=== PATIENT | male | born 1955 | race American Indian/Alaskan Native ===

== ENCOUNTER 2016-12-05 18:10 | Emergency (ER) | payer MEDICARE, OTHER ==
[2016-12-05] MEDS ORDERED: PROVENTIL IH ONE (18:20)
[2016-12-05 19:08] LABS: Hematocrit 44.6 % (35.5-45.6); Hemoglobin 14.7 gm/dl (11.8-15.2); Mean Corpuscular HGB Conc 33 % (32-34); Mean Corpuscular Hemoglobin 31 pg (28-32); Mean Corpuscular Volume 93 fl (84-94); Platelet Count 238 K/mm3 (140-440); Red Blood Count 4.77 M/mm3 (3.65-5.03); Red Cell Distribution Width 14.6 % (13.2-15.2); White Blood Count 5.8 K/mm3 (4.5-11.0)
--- NOTE | 2016-12-05 19:18 | Emergency Department Report ---
ED Shortness of Breath HPI - General Chief Complaint: Dyspnea/Respdistress Stated Complaint: RESP DISTRESS Time Seen by Provider: 12/05/16 18:18 Source: patient, EMS Mode of arrival: Stretcher Limitations: No Limitations - History of Present Illness Initial Comments: 61-year-old male presents to the emergency department via EMS in respiratory distress. Patient states he began having difficulty breathing earlier today. He denies chest pain, cough, or fever. EMS states that the patient was administered 5 mg of albuterol, 125 mg of Solu-Medrol, 2 g of magnesium, and 0.6 mg of epinephrine. Patient was also placed on CPAP. There are no other complaints. MD Complaint: shortness of breath -: Gradual, This morning Pain Scale: 0 Consistency: constant Improves With: nothing Worsens With: nothing Known History Of: asthma Associated Symptoms: denies other symptoms Treatments Prior to Arrival: oxygen, bronchodilator, NIPPV - Related Data Home Oxygen Therapy: No Previous Rx's Medication Instructions Recorded Last Taken Type predniSONE [Deltasone] 3 tab PO QDAY #15 tablet 12/05/16 Unknown Rx Allergies Allergy/AdvReac Type Severity Reaction Status Date / Time No Known Allergies Allergy Unverified 12/05/16 18:29 ED Review of Systems ROS: Stated complaint: RESP DISTRESS Other details as noted in HPI Comment: All other systems reviewed and negative Respiratory: shortness of breath ED Past Medical Hx - Past Medical History Previous Medical History?: Yes Hx Psychiatric Treatment: (Bipolar) Hx Asthma: Yes Additional medical history: Pulmonary sacrodosis - Surgical History Past Surgical History?: Yes Additional Surgical History: Left knee repair, tonsilectomy, salivatory stone remove - Family History Family history: no significant - Social History Smoking Status: Never Smoker Substance Use Type: None - Medications Home Medications: Home Medications Medication Instructions Recorded Confirmed Last Taken Type predniSONE [Deltasone] 3 tab PO QDAY #15 tablet 12/05/16 Unknown Rx ED Physical Exam - General Limitations: No Limitations General appearance: alert, in distress (moderate respiratory distress) - Head Head exam: Present: atraumatic, normocephalic - Eye Eye exam: Present: normal appearance, PERRL, EOMI - ENT ENT exam: Present: normal exam, normal orophraynx, mucous membranes moist - Neck Neck exam: Present: normal inspection, full ROM. Absent: tenderness - Respiratory Respiratory exam: Present: respiratory distress (moderate tachypnea), wheezes ( faint expiratory wheezes bilateral posterior diffuse), decreased breath sounds - Cardiovascular Cardiovascular Exam: Present: normal rhythm, tachycardia, normal heart sounds - GI/Abdominal GI/Abdominal exam: Present: soft, normal bowel sounds. Absent: distended, tenderness - Extremities Exam Extremities exam: Present: normal inspection, full ROM. Absent: tenderness - Back Exam Back exam: Present: normal inspection, full ROM. Absent: tenderness - Neurological Exam Neurological exam: Present: alert, oriented X3. Absent: motor sensory deficit - Skin Skin exam: Present: warm, dry, intact ED Course Vital Signs 12/05/16 12/05/16 12/05/16 18:30 18:31 18:35 Temperature 97.5 F L Pulse Rate 102 H 90 Pulse Rate [ 91 H Anterior Bilateral Throughout] Respiratory 26 H 16 Rate Respiratory 22 Rate [Anterior Bilateral Throughout] Blood Pressure 141/92 146/91 Blood Pressure [Right] O2 Sat by Pulse 96 100 Oximetry 12/05/16 12/05/16 12/05/16 18:37 19:00 19:02 Temperature Pulse Rate 92 H Pulse Rate [ 85 Anterior Bilateral Throughout] Respiratory 18 18 Rate Respiratory 17 Rate [Anterior Bilateral Throughout] Blood Pressure Blood Pressure 135/84 [Right] O2 Sat by Pulse 98 98 Oximetry ED Medical Decision Making - Lab Data Result diagrams: 12/05/16 18:49 12/05/16 18:49 - EKG Data -: EKG Interpreted by Me EKG shows normal: sinus rhythm, axis, intervals, QRS complexes, ST-T waves Rate: normal - EKG Data When compared to previous EKG there are: previous EKG unavailable Interpretation: normal EKG - Radiology Data Radiology results: image reviewed interpreted by me: Chest x-ray shows no acute cardiopulmonary abnormality. - Medical Decision Making Lab and imaging results reviewed and discussed with the patient. On arrival, the patient was placed on BiPAP and administered 10 mg of albuterol. Patient was then able to be weaned to nasal cannula and stated that he was feeling much better. Patient has been taken off of supplemental oxygen and is maintaining oxygen saturations greater than 95%. Patient will be discharged home at this time to follow up with his doctors at the [place]. - Differential Diagnosis asthma exacerbation, pneumonia, pulmonary edema Critical care attestation.: If time is entered above; I have spent that time in minutes in the direct care of this critically ill patient, excluding procedure time. ED Disposition Clinical Impression: Asthma exacerbation Disposition: DISCHARGED TO HOME OR SELFCARE Is pt being admited?: No Condition: Stable Instructions: Asthma (ED) Prescriptions: predniSONE [Deltasone] 3 tab PO QDAY #15 tablet Referrals: PRIMARY CARE, [Primary Care Provider] - 3-5 Days Time of Disposition: 20:02
[2016-12-05 19:35] LABS: Anion Gap 18 mmol/L; Blood Urea Nitrogen 14 mg/dL (9-20); Calcium 8.7 mg/dL (8.4-10.2); Carbon Dioxide 22 mmol/L (22-30); Chloride 103.5 mmol/L (98-107); Glucose 151 mg/dL (75-100); Magnesium 2.5 mg/dL (1.7-2.3); Sodium 139 mmol/L (137-145)
[2016-12-05 20:19] VITALS: BP 118/85
[2016-12-05 21:22] LABS: Basophils % (Manual) 0 % (0.0-1.8); Blastocytes % (Manual) 0 %
[2016-12-05 21:23] LABS: Diff Status Complete; Platelet Estimate Consistent w Auto; RBC Morphology Normal
--- NOTE | 2016-12-06 11:20 | XRay Report ---
SINGLE VIEW CHEST: HISTORY: Dyspnea. FINDINGS: Normal cardiomediastinal silhouette. Trachea is midline. No consolidation, pneumothorax or pleural effusion. IMPRESSION: No acute cardiopulmonary findings.
== END 2016-12-05 20:22 | disposition home or self-care (01) ==
LOC: ED 18:10
DX: J45.901 Unspecified asthma with (acute) exacerbation (principal); F31.9 Bipolar disorder, unspecified; D86.0 Sarcoidosis of lung
CPT/HCPCS: 36415; 71010; 80048; 83735; 85007; 85025; 93005; 93010; 94640

== ENCOUNTER 2016-12-23 22:02 | Emergency (ER) | payer MEDICARE, OTHER ==
[2016-12-23] MEDS ORDERED: PROVENTIL IH ONE ×2 (22:08→22:17)
[2016-12-23 22:09] VITALS: BP 144/91
[2016-12-23 22:54] LABS: Basophils % (Auto) 0.8 % (0.0-1.8); Eosinophils % (Auto) 7.7 % (0.0-4.3); Hematocrit 44.1 % (35.5-45.6); Hemoglobin 14.8 gm/dl (11.8-15.2); Mean Corpuscular HGB Conc 34 % (32-34); Mean Corpuscular Hemoglobin 31 pg (28-32); Mean Corpuscular Volume 93 fl (84-94); Platelet Count 201 K/mm3 (140-440); Red Blood Count 4.73 M/mm3 (3.65-5.03); Red Cell Distribution Width 14.6 % (13.2-15.2); White Blood Count 6.8 K/mm3 (4.5-11.0)
[2016-12-23 23:17] LABS: Anion Gap 20 mmol/L; BUN/Creatinine Ratio 13.75; Blood Urea Nitrogen 11 mg/dL (9-20); Calcium 9.3 mg/dL (8.4-10.2); Carbon Dioxide 24 mmol/L (22-30); Chloride 103.2 mmol/L (98-107); Glucose 109 mg/dL (75-100); Sodium 143 mmol/L (137-145)
--- NOTE | 2016-12-24 08:23 | XRay Report ---
Chest 2 views. Findings: The heart and pulmonary vessels are normal. The lungs are clear. There is no pleural fluid. Impression: No acute findings.
--- NOTE | 2016-12-25 01:49 | ED Elopement Review ---
ED Pt Elopement review - Results review Lab results: Laboratory Tests 12/23/16 12/23/16 22:38 22:38 WBC 6.8 RBC 4.73 Hgb 14.8 Hct 44.1 MCV 93 MCH 31 MCHC 34 RDW 14.6 Plt Count 201 Lymph % (Auto) 33.9 [place] % (Auto) 13.9 H Eos % (Auto) 7.7 H Baso % (Auto) 0.8 Lymph # 2.3 [place] # 0.9 H Eos # 0.5 H Baso # 0.1 Seg Neutrophils % 43.7 Seg Neutrophils # 3.0 Sodium 143 Potassium 4.0 Chloride 103.2 Carbon Dioxide 24 Anion Gap 20 BUN 11 Creatinine 0.8 Estimated GFR > 60 BUN/Creatinine Ratio 13.75 Glucose 109 H Calcium 9.3 Troponin T < 0.010 - Call Back decision Pt Call Back Decision: Pt to F/U with PMD (elevated hr, follow up, if sx continue may return)
== END 2016-12-24 01:30 | disposition left against medical advice (07) ==
LOC: ED 22:02
DX: R06.00 Dyspnea, unspecified (principal); Z53.21 Procedure and treatment not carried out due to patient leaving prior to being seen by health care provider
CPT/HCPCS: 36415; 71020; 80048; 84484; 85025; 93005; 93010; 94640; 96372; J2930

== ENCOUNTER 2017-11-19 15:55 | Emergency (ER) | payer OTHER ==
[2017-11-19] MEDS ORDERED: ATROVENT IH ONE ×3 (16:01→18:02)
[2017-11-19] MEDS ORDERED: PROVENTIL IH ONE ×3 (16:02→18:02)
[2017-11-19 16:33] LABS: Hematocrit 47.1 % (35.5-45.6); Hemoglobin 15.6 gm/dl (11.8-15.2); Mean Corpuscular HGB Conc 33 % (32-34); Mean Corpuscular Hemoglobin 31 pg (28-32); Mean Corpuscular Volume 94 fl (84-94); Platelet Count 306 K/mm3 (140-440); Red Blood Count 5.03 M/mm3 (3.65-5.03); Red Cell Distribution Width 14.7 % (13.2-15.2)
[2017-11-19 16:52] LABS: BUN/Creatinine Ratio 20; Blood Urea Nitrogen 14 mg/dL (9-20); Calcium 9.8 mg/dL (8.4-10.2); Hemolysis Index 10
[2017-11-19 16:55] LABS: INR 0.85 (0.87-1.13)
[2017-11-19 17:30] LABS: Anisocytosis Few; Basophils % (Manual) 0 % (0.0-1.8); Total Cells Counted 100
--- NOTE | 2017-11-19 17:53 | XRay Report ---
FINAL REPORT EXAM: XR CHEST 1V AP HISTORY: BILL TECHNIQUE: upright single view chest PRIORS: None. FINDINGS: Cardiac and mediastinal contours are unremarkable. No focal pulmonary infiltrate is identified. No pleural fluid collection seen. Pulmonary vasculature is unremarkable. IMPRESSION: Negative single-view chest
--- NOTE | 2017-11-19 18:00 | Emergency Department Report ---
HPI - General Chief Complaint: Dyspnea/Respdistress Time Seen by Provider: 11/19/17 17:43 - HPI HPI: Room 8 The patient is a 62-year-old male presented with a chief complaint of shortness of breath. The patient states he was lying on his bed at rest when he became short of breath. The patient states he walked outside to see if the cool air would help but it did not so he went back inside and called EMS. The fire department arrived and administered a nebulizer and the patient states he felt better however soon as he started walking up stairs again had increased work of breathing and subsequently EMS was called to transport the patient to the ED. EMS administered albuterol, Solu-Medrol and magnesium sulfate. The patient states he feels better/back to his baseline currently. Patient is an occasional cough productive of clear sputum. Patient denies fever, rhinorrhea or chest pain. Patient denies having any sick contacts Location: Lungs Duration: Since noon Quality: Shortness of breath Severity: Moderate Modifying factors: [see above] Context: [see above] Mode of transportation: [not driving] ED Past Medical Hx - Past Medical History Hx Psychiatric Treatment: (Bipolar) Hx Asthma: Yes Additional medical history: Pulmonary sacrodosis - Surgical History Additional Surgical History: Left knee repair, tonsilectomy, Sialolithotomy - Family History Family history: no significant - Social History Smoking Status: Former Smoker (none 2 years) Substance Use Type: None - Medications Home Medications: Home Medications Medication Instructions Recorded Confirmed Last Taken Type Acetaminophen [Acetaminophen TAB] 325 mg PO Q4H PRN #30 tablet 10/16/17 Unknown Rx Budesoni/Formotero 160-4.5(Nf) 2 puff IH BID #1 unit 10/16/17 10/12/17 Unknown Rx [Symbicort 160-4.5 (Nf)] Divalproex ER [Depakote ER] 1,500 mg PO QDAY #30 day 10/16/17 Unknown Rx Famotidine [Pepcid] 20 mg PO BID #30 tablet 10/16/17 Unknown Rx Montelukast [Singulair] 10 mg PO QAM #30 tablet 10/16/17 Unknown Rx Prednisone [predniSONE 10 mg 10 mg PO .TAPER #1 tab.ds.pk 10/16/17 Unknown Rx (6-Day Pack, 21 Tabs)] QUEtiapine [SEROquel] 600 mg PO QHS #30 day 10/16/17 Unknown Rx Tiotropium [Spiriva] 1 puff IH DAILY #30 day 10/16/17 Unknown Rx Zolpidem [Ambien] 5 mg PO QHS PRN #15 tablet 10/16/17 Unknown Rx ALBUTEROL Inhaler [Proair] 2 puff IH QID PRN #1 inhalation 11/19/17 Unknown Rx ALBUTEROL NEB's [Proventil 0.083% 2.5 mg IH TID PRN #30 day 11/19/17 Unknown Rx NEBS] Prednisone [predniSONE 10 mg 10 mg PO .TAPER #1 tab.ds.pk 11/19/17 Unknown Rx (6-Day Pack, 21 Tabs)] ED Review of Systems ROS: Stated complaint: BILL Other details as noted in HPI Constitutional: denies: fever ENT: denies: other (no rhinorrhea) Respiratory: cough, shortness of breath, wheezing Cardiovascular: denies: chest pain Physical Exam - Physical Exam Vital Signs: Vital Signs 11/19/17 11/19/17 11/19/17 16:08 16:16 16:23 Temperature 97.6 F Pulse Rate 96 H 97 H Pulse Rate [ 97 H Anterior Bilateral Throughout] Respiratory 38 H 24 Rate Respiratory 24 Rate [Anterior Bilateral Throughout] Blood Pressure 183/96 183/96 O2 Sat by Pulse 91 97 Oximetry 11/19/17 11/19/17 16:30 16:45 Temperature Pulse Rate 96 H 94 H Pulse Rate [ Anterior Bilateral Throughout] Respiratory 16 15 Rate Respiratory Rate [Anterior Bilateral Throughout] Blood Pressure 150/88 144/114 O2 Sat by Pulse 99 96 Oximetry Physical Exam: GENERAL: The patient is well-developed well-nourished male lying on stretcher with nasal cannula in place not appearing to be in acute distress. [] HEENT: Normocephalic. Atraumatic. Extraocular motions are intact. Patient has moist mucous membranes. NECK: Supple. Trachea midline CHEST/LUNGS: Occasional faint expiratory wheezing. There is no respiratory distress noted. HEART/CARDIOVASCULAR: Regular. There is no tachycardia. There is no gallop rub or murmur. ABDOMEN: Abdomen is soft, nontender. Patient has normal bowel sounds. There is no abdominal distention. SKIN: There is no rash. There is no edema. There is no diaphoresis. NEURO: The patient is awake, alert, and oriented. The patient is cooperative. The patient has normal speech MUSCULOSKELETAL:There is no evidence of acute injury. ED Course Vital Signs 11/19/17 11/19/17 11/19/17 16:08 16:16 16:23 Temperature 97.6 F Pulse Rate 96 H 97 H Pulse Rate [ 97 H Anterior Bilateral Throughout] Respiratory 38 H 24 Rate Respiratory 24 Rate [Anterior Bilateral Throughout] Blood Pressure 183/96 183/96 O2 Sat by Pulse 91 97 Oximetry 11/19/17 11/19/17 16:30 16:45 Temperature Pulse Rate 96 H 94 H Pulse Rate [ Anterior Bilateral Throughout] Respiratory 16 15 Rate Respiratory Rate [Anterior Bilateral Throughout] Blood Pressure 150/88 144/114 O2 Sat by Pulse 99 96 Oximetry - Reevaluation(s) Reevaluation #1: 11/19/17 18:02 Patient satting 95-96% on room air. Sitting comfortably ED Medical Decision Making - Lab Data Result diagrams: 11/19/17 16:18 11/19/17 16:18 Laboratory Tests 11/19/17 11/19/17 11/19/17 16:18 16:18 16:18 WBC 6.8 RBC 5.03 Hgb 15.6 H Hct 47.1 H MCV 94 MCH 31 MCHC 33 RDW 14.7 Plt Count 306 [place] % (Auto) Blue Prints Trimmer Add Manual Diff Complete Total Counted 100 Seg Neutrophils % Blue Prints Trimmer Seg Neuts % (Manual) 36.0 L Band Neutrophils % 0 Lymphocytes % (Manual) 48.0 H Reactive Lymphs % (Man) 0 Monocytes % (Manual) 12.0 H Eosinophils % (Manual) 4.0 Basophils % (Manual) 0 Metamyelocytes % 0 Myelocytes % 0 Promyelocytes % 0 Blast Cells % 0 Nucleated RBC % Not Reportable Seg Neutrophils # Man 2.4 Band Neutrophils # 0.0 Lymphocytes # (Manual) 3.3 Abs React Lymphs (Man) 0.0 Monocytes # (Manual) 0.8 Eosinophils # (Manual) 0.3 Basophils # (Manual) 0.0 Metamyelocytes # 0.0 Myelocytes # 0.0 Promyelocytes # 0.0 Blast Cells # 0.0 WBC Morphology Not Reportable Hypersegmented Neuts Not Reportable Hyposegmented Neuts Not Reportable Hypogranular Neuts Not Reportable Smudge Cells Not Reportable Toxic Granulation Not Reportable Toxic Vacuolation Not Reportable Dohle Bodies Not Reportable Pelger-Huet Anomaly Not Reportable Lucy Rods Not Reportable Platelet Estimate Appears normal Clumped Platelets Not Reportable Plt Clumps, EDTA Not Reportable Large Platelets Not Reportable Giant Platelets Not Reportable Platelet Satelliting Not Reportable Plt Morphology Comment Not Reportable RBC Morphology Not Reportable Dimorphic RBCs Not Reportable Polychromasia Not Reportable Hypochromasia Not Reportable Poikilocytosis Not Reportable Anisocytosis Few Microcytosis Not Reportable Macrocytosis Not Reportable Spherocytes Not Reportable Pappenheimer Bodies Not Reportable Sickle Cells Not Reportable Target Cells Not Reportable Tear Drop Cells Not Reportable Ovalocytes Not Reportable Helmet Cells Not Reportable [place] Bodies Not Reportable [place] Rings Not Reportable [place] Cells Not Reportable Bite Cells Not Reportable Crenated Cell Not Reportable Elliptocytes Not Reportable Acanthocytes (Spur) Not Reportable Rouleaux Not Reportable Hemoglobin C Crystals Not Reportable Schistocytes Not Reportable Malaria parasites Not Reportable Christopher Bodies Not Reportable Hem Pathologist Commnt No PT INR APTT Sodium 140 Potassium 4.3 Chloride 100.0 Carbon Dioxide 24 Anion Gap 20 BUN 14 Creatinine 0.7 L Estimated GFR > 60 BUN/Creatinine Ratio 20 Glucose 106 H Calcium 9.8 Troponin T < 0.010 11/19/17 16:23 WBC RBC Hgb Hct MCV MCH MCHC RDW Plt Count [place] % (Auto) Add Manual Diff Total Counted Seg Neutrophils % Seg Neuts % (Manual) Band Neutrophils % Lymphocytes % (Manual) Reactive Lymphs % (Man) Monocytes % (Manual) Eosinophils % (Manual) Basophils % (Manual) Metamyelocytes % Myelocytes % Promyelocytes % Blast Cells % Nucleated RBC % Seg Neutrophils # Man Band Neutrophils # Lymphocytes # (Manual) Abs React Lymphs (Man) Monocytes # (Manual) Eosinophils # (Manual) Basophils # (Manual) Metamyelocytes # Myelocytes # Promyelocytes # Blast Cells # WBC Morphology Hypersegmented Neuts Hyposegmented Neuts Hypogranular Neuts Smudge Cells Toxic Granulation Toxic Vacuolation Dohle Bodies Pelger-Huet Anomaly Lucy Rods Platelet Estimate Clumped Platelets Plt Clumps, EDTA Large Platelets Giant Platelets Platelet Satelliting Plt Morphology Comment RBC Morphology Dimorphic RBCs Polychromasia Hypochromasia Poikilocytosis Anisocytosis Microcytosis Macrocytosis Spherocytes Pappenheimer Bodies Sickle Cells Target Cells Tear Drop Cells Ovalocytes Helmet Cells Holt-[place] Bodies [place] Rings [place] Cells Bite Cells Crenated Cell Elliptocytes Acanthocytes (Spur) Rouleaux Hemoglobin C Crystals Schistocytes Malaria parasites Christopher Bodies Hem Pathologist Commnt PT 12.0 L INR 0.85 L APTT 30.0 Sodium Potassium Chloride Carbon Dioxide Anion Gap BUN Creatinine Estimated GFR BUN/Creatinine Ratio Glucose Calcium Troponin T - EKG Data -: EKG Interpreted by Me EKG shows normal: sinus rhythm Rate: normal - EKG Data When compared to previous EKG there are: previous EKG unavailable - Radiology Data Radiology results: image reviewed (chest x-ray) interpreted by me: Chest x-ray-no focal infiltrates, no pneumothorax - Differential Diagnosis acute asthma exacerbation, sarcoidosis Critical care attestation.: If time is entered above; I have spent that time in minutes in the direct care of this critically ill patient, excluding procedure time. ED Disposition Clinical Impression: Shortness of breath, Acute asthma exacerbation, Sarcoidosis Disposition: DC- TO HOME OR SELFCARE Is pt being admited?: No Does the pt Need Aspirin: No Condition: Stable Instructions: Asthma (ED) Additional Instructions: Return to the emergency department immediately should you develop worsening symptoms, fever, inability to tolerate food or liquid or any other concerns. Prescriptions: ALBUTEROL Inhaler [Proair] 2 puff IH QID PRN #1 inhalation PRN Reason: Shortness Of Breath ALBUTEROL NEB's [Proventil 0.083% NEBS] 2.5 mg IH TID PRN #30 day PRN Reason: Wheezing Prednisone [predniSONE 10 mg (6-Day Pack, 21 Tabs)] 10 mg PO .TAPER #1 tab.ds.pk Referrals: [facility] [Outside] - 3-5 Days Time of Disposition: 18:05
[2017-11-19 18:46] VITALS: BP 134/86
== END 2017-11-19 18:44 | disposition home or self-care (01) ==
LOC: ED 15:55
DX: J45.901 Unspecified asthma with (acute) exacerbation (principal); D86.9 Sarcoidosis, unspecified; F31.9 Bipolar disorder, unspecified; Z87.891 Personal history of nicotine dependence
CPT/HCPCS: 36415; 71045; 80048; 84484; 85007; 85025; 85610; 85730; 93005; 93010; 94640

== ENCOUNTER 2017-12-22 16:07 | Emergency (ER) | payer OTHER ==
[2017-12-22] MEDS ORDERED: PROVENTIL IH ONE (17:12)
[2017-12-22] MEDS ORDERED: ATROVENT IH ONE (17:12)
--- NOTE | 2017-12-22 17:15 | Emergency Department Report ---
ED Shortness of Breath HPI - General Chief Complaint: Dyspnea/Respdistress Stated Complaint: DIFFICULTY BREATHING Time Seen by Provider: 12/22/17 17:08 Source: patient, EMS Mode of arrival: Stretcher Limitations: No Limitations - History of Present Illness Initial Comments: Patient is a 62-year-old male who has a history of asthma and pulmonary sarcoidosis who is coming in with 2 days of shortness of breath. Patient states she's been using his nebulizer machine as prescribed but states that he hasn't been getting any improvement. Patient states that he's had a cough is nonproductive. Patient states that her shortness of breath became so severe today that he called 911. Patient denies any fever nausea vomiting diarrhea headaches sore throat chest pain at this time. - Related Data Previous Rx's Medication Instructions Recorded Last Taken Type Acetaminophen [Acetaminophen TAB] 650 mg PO Q4H PRN #30 tablet 12/09/17 Unknown Rx Azithromycin [Zithromax TAB] 500 mg PO QDAY #5 day 12/09/17 Unknown Rx Budesoni/Formotero 160-4.5(Nf) 2 puff IH BID #1 unit 12/09/17 Unknown Rx [Symbicort 160-4.5 (Nf)] Divalproex ER [Depakote ER] 1,500 mg PO QDAY #30 day 12/09/17 Unknown Rx Famotidine [Pepcid] 20 mg PO BID #30 tablet 12/09/17 Unknown Rx Ipratropium/Albuterol Sulfate 1 ampul IH BID #30 ampul.neb 12/09/17 Unknown Rx [DUONEB *Not for PRN Use*] Montelukast [Singulair] 10 mg PO QAM #30 tablet 12/09/17 Unknown Rx Prednisone [predniSONE 10 mg 10 mg PO .TAPER #1 tab.ds.pk 12/09/17 Unknown Rx (6-Day Pack, 21 Tabs)] QUEtiapine [SEROquel] 600 mg PO QHS #30 day 12/09/17 Unknown Rx ALBUTEROL NEB's [Proventil 0.083% 5 mg IH Q4HRT PRN #30 nebu 12/22/17 Unknown Rx NEBS] Benzonatate [Tessalon Perle] 100 mg PO BID #12 capsule 12/22/17 Unknown Rx Doxycycline [Vibramycin CAP] 100 mg PO Q12HR #14 capsule 12/22/17 Unknown Rx predniSONE [Deltasone] 20 mg PO QDAY #5 tab 12/22/17 Unknown Rx Allergies Allergy/AdvReac Type Severity Reaction Status Date / Time No Known Allergies Allergy Verified 12/22/17 16:53 ED Review of Systems ROS: Stated complaint: DIFFICULTY BREATHING Other details as noted in HPI Comment: All other systems reviewed and negative ED Past Medical Hx - Past Medical History Hx Psychiatric Treatment: Yes (Bipolar) Hx Asthma: Yes Additional medical history: Pulmonary sacrodosis - Surgical History Additional Surgical History: Left knee repair, tonsilectomy, Sialolithotomy - Social History Smoking Status: Former Smoker Substance Use Type: None - Medications Home Medications: Home Medications Medication Instructions Recorded Confirmed Last Taken Type Acetaminophen [Acetaminophen TAB] 650 mg PO Q4H PRN #30 tablet 12/09/17 Unknown Rx Azithromycin [Zithromax TAB] 500 mg PO QDAY #5 day 12/09/17 Unknown Rx Budesoni/Formotero 160-4.5(Nf) 2 puff IH BID #1 unit 12/09/17 Unknown Rx [Symbicort 160-4.5 (Nf)] Divalproex ER [Depakote ER] 1,500 mg PO QDAY #30 day 12/09/17 Unknown Rx Famotidine [Pepcid] 20 mg PO BID #30 tablet 12/09/17 Unknown Rx Ipratropium/Albuterol Sulfate 1 ampul IH BID #30 ampul.neb 12/09/17 Unknown Rx [DUONEB *Not for PRN Use*] Montelukast [Singulair] 10 mg PO QAM #30 tablet 12/09/17 Unknown Rx Prednisone [predniSONE 10 mg 10 mg PO .TAPER #1 tab.ds.pk 12/09/17 Unknown Rx (6-Day Pack, 21 Tabs)] QUEtiapine [SEROquel] 600 mg PO QHS #30 day 12/09/17 Unknown Rx ALBUTEROL NEB's [Proventil 0.083% 5 mg IH Q4HRT PRN #30 nebu 12/22/17 Unknown Rx NEBS] Benzonatate [Tessalon Perle] 100 mg PO BID #12 capsule 12/22/17 Unknown Rx Doxycycline [Vibramycin CAP] 100 mg PO Q12HR #14 capsule 12/22/17 Unknown Rx predniSONE [Deltasone] 20 mg PO QDAY #5 tab 12/22/17 Unknown Rx ED Physical Exam - General Limitations: No Limitations General appearance: alert, in no apparent distress - Head Head exam: Present: atraumatic, normocephalic - Eye Eye exam: Present: normal appearance - ENT ENT exam: Present: mucous membranes moist - Neck Neck exam: Present: normal inspection - Respiratory Respiratory exam: Present: wheezes. Absent: normal lung sounds bilaterally, respiratory distress, rales, rhonchi - Cardiovascular Cardiovascular Exam: Present: normal rhythm, tachycardia. Absent: bradycardia, systolic murmur, diastolic murmur, rubs, gallop - GI/Abdominal GI/Abdominal exam: Present: soft, normal bowel sounds. Absent: distended, tenderness, guarding, rebound - Rectal Rectal exam: Present: deferred - Extremities Exam Extremities exam: Present: normal inspection - Back Exam Back exam: Present: normal inspection - Neurological Exam Neurological exam: Present: alert, oriented X3 - Psychiatric Psychiatric exam: Present: normal affect, normal mood - Skin Skin exam: Present: warm, dry, intact, normal color. Absent: rash ED Course Vital Signs 12/22/17 12/22/17 12/22/17 16:43 16:44 16:47 Temperature Pulse Rate 105 H 104 H 105 H Respiratory 13 14 18 Rate Blood Pressure 150/92 136/98 O2 Sat by Pulse 98 97 99 Oximetry 12/22/17 12/22/17 12/22/17 16:49 16:51 16:53 Temperature 97.5 F L Pulse Rate 105 H 103 H 103 H Respiratory 14 18 16 Rate Blood Pressure 136/98 136/98 136/98 O2 Sat by Pulse 98 98 99 Oximetry 12/22/17 12/22/17 16:59 17:03 Temperature 97.5 F L Pulse Rate Respiratory 24 Rate Blood Pressure O2 Sat by Pulse 98 Oximetry ED Medical Decision Making - Lab Data Result diagrams: 12/22/17 17:12 12/22/17 17:12 - Radiology Data Radiology results: image reviewed interpreted by me: Bilateral atelectasis with no obvious infiltrate. - Medical Decision Making Patient received a nebulized treatment in route and received a hour-long neurologic treatment of albuterol and Atrovent here in the emergency department. Patient states he is feeling much better. Patient states he has a wheeze at baseline which never leaves. Patient is not 4% on room air and states he feels as though he can go home. Patient be started on prednisone will continue with his albuterol treatments at home. He'll follow with the [place] [facility]. Critical care attestation.: If time is entered above; I have spent that time in minutes in the direct care of this critically ill patient, excluding procedure time. ED Disposition Clinical Impression: Bronchospasm, Shortness of breath, Sarcoidosis Acute asthma exacerbation Qualifiers: Asthma severity: moderate Asthma persistence: persistent Qualified Code(s): J45.41 - Moderate persistent asthma with (acute) exacerbation Disposition: TO HOME OR SELFCARE Is pt being admited?: No Does the pt Need Aspirin: No Condition: Stable Instructions: Asthma (ED) Prescriptions: ALBUTEROL NEB's [Proventil 0.083% NEBS] 5 mg IH Q4HRT PRN #30 nebu PRN Reason: Shortness Of Breath Benzonatate [Tessalon Perle] 100 mg PO BID #12 capsule Doxycycline [Vibramycin CAP] 100 mg PO Q12HR #14 capsule predniSONE [Deltasone] 20 mg PO QDAY #5 tab Referrals: PRIMARY CARE, [Primary Care Provider] - 3-5 Days
[2017-12-22 17:36] LABS: BUN/Creatinine Ratio 17; Blood Urea Nitrogen 12 mg/dL (9-20); Calcium 9.3 mg/dL (8.4-10.2); Hemolysis Index 44
[2017-12-22 17:55] LABS: Hemoglobin 15.1 gm/dl (11.8-15.2); Mean Corpuscular Hemoglobin 31 pg (28-32); Mean Corpuscular Volume 94 fl (84-94); Red Blood Count 4.88 M/mm3 (3.65-5.03)
[2017-12-22 17:56] LABS: Lymphocytes % (Auto) 22.5 % (13.4-35.0); Mean Corpuscular HGB Conc 33 % (32-34); Monocytes % (Auto) 11.1 % (0.0-7.3); Platelet Count 216 K/mm3 (140-440); Red Cell Distribution Width 14.7 % (13.2-15.2)
[2017-12-22 17:57] LABS: Basophils % (Auto) 0.5 % (0.0-1.8); Eosinophils % (Auto) 12.6 % (0.0-4.3); Lymphocytes # (Auto) 1.4 K/mm3 (1.2-5.4)
[2017-12-22 17:58] LABS: Eosinophils # (Auto) 0.8 K/mm3 (0.0-0.4); Monocytes # (Auto) 0.7 K/mm3 (0.0-0.8)
--- NOTE | 2017-12-22 19:06 | XRay Report ---
FINAL REPORT EXAM: XR CHEST ROUTINE 2V HISTORY: Shortness of breath TECHNIQUE: PA and lateral views of the chest PRIORS: CXR 12/07/2017 FINDINGS: Lines, tubes, and devices: N/A Lungs and pleura: Trachea is normal in position. Lungs are clear of infiltrate, pleural effusion, vascular congestion, or pneumothorax. No change. Cardiomediastinal silhouette: Cardiac and mediastinal silhouettes are unremarkable. Other: Bony structures are intact. IMPRESSION: No acute cardiopulmonary process seen. No change.
[2017-12-22 19:32] VITALS: BP 133/86
== END 2017-12-22 19:34 | disposition home or self-care (01) ==
LOC: ED 16:07
DX: J45.41 Moderate persistent asthma with (acute) exacerbation (principal); D86.89 Sarcoidosis of other sites; F31.9 Bipolar disorder, unspecified; Z90.89 Acquired absence of other organs; Z98.890 Other specified postprocedural states; Z87.891 Personal history of nicotine dependence
CPT/HCPCS: 36415; 71046; 80048; 85025; 94640

== ENCOUNTER 2017-12-31 20:13 | Emergency (ER) | payer MEDICARE, OTHER ==
[2017-12-31] MEDS ORDERED: ATROVENT IH ONE (20:39)
[2017-12-31] MEDS ORDERED: XOPENEX IH ONE (20:40)
--- NOTE | 2017-12-31 20:45 | Emergency Department Report ---
ED Shortness of Breath HPI - General Chief Complaint: Dyspnea/Respdistress Stated Complaint: BILL Time Seen by Provider: 12/31/17 20:34 Source: patient, EMS Mode of arrival: Stretcher Limitations: No Limitations - History of Present Illness Initial Comments: Patient is 62 years old male history of asthma and sarcoidosis. Patient brought to the ER via EMS after started having shortness of breath and wheezing this afternoon does get worse just prior to coming to the ER. Patient received albuterol, Solu-Medrol, 2 g of magnesium sulfate and oxygen by EMS. Patient is still complaining of shortness of breath. Patient denied any fever, nausea or vomiting. No chest pain. MD Complaint: shortness of breath, cough -: Gradual Known History Of: asthma Associated Symptoms: cough - Related Data Previous Rx's Medication Instructions Recorded Last Taken Type Acetaminophen [Acetaminophen TAB] 650 mg PO Q4H PRN #30 tablet 12/09/17 Unknown Rx Azithromycin [Zithromax TAB] 500 mg PO QDAY #5 day 12/09/17 Unknown Rx Budesoni/Formotero 160-4.5(Nf) 2 puff IH BID #1 unit 12/09/17 Unknown Rx [Symbicort 160-4.5 (Nf)] Divalproex ER [Depakote ER] 1,500 mg PO QDAY #30 day 12/09/17 Unknown Rx Famotidine [Pepcid] 20 mg PO BID #30 tablet 12/09/17 Unknown Rx Ipratropium/Albuterol Sulfate 1 ampul IH BID #30 ampul.neb 12/09/17 Unknown Rx [DUONEB *Not for PRN Use*] Montelukast [Singulair] 10 mg PO QAM #30 tablet 12/09/17 Unknown Rx Prednisone [predniSONE 10 mg 10 mg PO .TAPER #1 tab.ds.pk 12/09/17 Unknown Rx (6-Day Pack, 21 Tabs)] QUEtiapine [SEROquel] 600 mg PO QHS #30 day 12/09/17 Unknown Rx ALBUTEROL NEB's [Proventil 0.083% 5 mg IH Q4HRT PRN #30 nebu 12/22/17 Unknown Rx NEBS] Benzonatate [Tessalon Perle] 100 mg PO BID #12 capsule 12/22/17 Unknown Rx Doxycycline [Vibramycin CAP] 100 mg PO Q12HR #14 capsule 12/22/17 Unknown Rx predniSONE [Deltasone] 20 mg PO QDAY #5 tab 12/22/17 Unknown Rx Allergies Allergy/AdvReac Type Severity Reaction Status Date / Time No Known Allergies Allergy Verified 12/22/17 16:53 ED Review of Systems ROS: Stated complaint: BILL Other details as noted in HPI Comment: All other systems reviewed and negative Constitutional: denies: chills, fever Respiratory: cough, shortness of breath, SOB at rest, wheezing Cardiovascular: denies: chest pain, palpitations Gastrointestinal: denies: abdominal pain, nausea, vomiting, diarrhea, constipation, hematemesis, melena, hematochezia Neurological: denies: headache, weakness, numbness, paresthesias, confusion ED Past Medical Hx - Past Medical History Previous Medical History?: Yes Hx Psychiatric Treatment: Yes (Bipolar) Hx Asthma: Yes Additional medical history: Pulmonary sacrodosis - Surgical History Past Surgical History?: Yes Additional Surgical History: Left knee repair, tonsilectomy, Sialolithotomy - Social History Smoking Status: Former Smoker Substance Use Type: None - Medications Home Medications: Home Medications Medication Instructions Recorded Confirmed Last Taken Type Acetaminophen [Acetaminophen TAB] 650 mg PO Q4H PRN #30 tablet 12/09/17 Unknown Rx Azithromycin [Zithromax TAB] 500 mg PO QDAY #5 day 12/09/17 Unknown Rx Budesoni/Formotero 160-4.5(Nf) 2 puff IH BID #1 unit 12/09/17 Unknown Rx [Symbicort 160-4.5 (Nf)] Divalproex ER [Depakote ER] 1,500 mg PO QDAY #30 day 12/09/17 Unknown Rx Famotidine [Pepcid] 20 mg PO BID #30 tablet 12/09/17 Unknown Rx Ipratropium/Albuterol Sulfate 1 ampul IH BID #30 ampul.neb 12/09/17 Unknown Rx [DUONEB *Not for PRN Use*] Montelukast [Singulair] 10 mg PO QAM #30 tablet 12/09/17 Unknown Rx Prednisone [predniSONE 10 mg 10 mg PO .TAPER #1 tab.ds.pk 12/09/17 Unknown Rx (6-Day Pack, 21 Tabs)] QUEtiapine [SEROquel] 600 mg PO QHS #30 day 12/09/17 Unknown Rx ALBUTEROL NEB's [Proventil 0.083% 5 mg IH Q4HRT PRN #30 nebu 12/22/17 Unknown Rx NEBS] Benzonatate [Tessalon Perle] 100 mg PO BID #12 capsule 12/22/17 Unknown Rx Doxycycline [Vibramycin CAP] 100 mg PO Q12HR #14 capsule 12/22/17 Unknown Rx predniSONE [Deltasone] 20 mg PO QDAY #5 tab 12/22/17 Unknown Rx ED Physical Exam - General Limitations: No Limitations General appearance: alert, in distress - Head Head exam: Present: atraumatic, normocephalic, normal inspection - Eye Eye exam: Present: normal appearance - ENT ENT exam: Present: normal exam, normal orophraynx, mucous membranes moist - Neck Neck exam: Present: normal inspection, full ROM. Absent: tenderness, meningismus, lymphadenopathy - Respiratory Respiratory exam: Present: respiratory distress, wheezes, rhonchi, accessory muscle use, decreased breath sounds, prolonged expiratory. Absent: rales, stridor, chest wall tenderness - Cardiovascular Cardiovascular Exam: Present: tachycardia - GI/Abdominal GI/Abdominal exam: Present: soft, normal bowel sounds. Absent: distended, tenderness, guarding, rebound, rigid, organomegaly, mass, bruit, pulsatile mass , hernia - Extremities Exam Extremities exam: Present: normal inspection, full ROM, normal capillary refill - Back Exam Back exam: Present: normal inspection, full ROM. Absent: CVA tenderness (R), CVA tenderness (L) - Neurological Exam Neurological exam: Present: alert, oriented X3, CN II-XII intact, normal gait - Skin Skin exam: Present: warm, intact, normal color. Absent: cyanosis, diaphoretic, erythema, urticaria ED Course Vital Signs 12/31/17 12/31/17 12/31/17 20:29 20:32 21:12 Temperature 98.7 F Pulse Rate 106 H 106 H Pulse Rate [ 101 H Anterior Bilateral Throughout] Respiratory 20 Rate Respiratory 21 Rate [Anterior Bilateral Throughout] Blood Pressure 134/80 O2 Sat by Pulse 94 Oximetry 12/31/17 21:22 Temperature Pulse Rate Pulse Rate [ 104 H Anterior Bilateral Throughout] Respiratory Rate Respiratory 21 Rate [Anterior Bilateral Throughout] Blood Pressure O2 Sat by Pulse Oximetry - Reevaluation(s) Reevaluation #1: 01/01/18 00:25 Patient is stated that he is feeling much better. Good airway movement bilaterally and no wheezing or rales. ED Medical Decision Making - Lab Data Result diagrams: 12/31/17 20:53 12/31/17 20:53 Critical care attestation.: If time is entered above; I have spent that time in minutes in the direct care of this critically ill patient, excluding procedure time. ED Disposition Clinical Impression: Sarcoidosis, Asthma exacerbation Disposition: DC-01 TO HOME OR SELFCARE Is pt being admited?: No Condition: Stable Instructions: Asthma (ED), Sarcoidosis (ED)
[2017-12-31 21:18] LABS: Hematocrit 44.2 % (35.5-45.6); Hemoglobin 14.8 gm/dl (11.8-15.2); Mean Corpuscular HGB Conc 34 % (32-34); Mean Corpuscular Hemoglobin 31 pg (28-32); Mean Corpuscular Volume 91 fl (84-94); Platelet Count 227 K/mm3 (140-440); Red Blood Count 4.84 M/mm3 (3.65-5.03); Red Cell Distribution Width 14.1 % (13.2-15.2)
[2017-12-31 21:33] LABS: Alanine Aminotransferase 19 units/L (7-56); Albumin 3.6 g/dL (3.9-5); BUN/Creatinine Ratio 16; Blood Urea Nitrogen 11 mg/dL (9-20); Hemolysis Index 8
[2017-12-31 22:30] LABS: Myelocytes # (Manual) 0.1 K/mm3; RBC Morphology Normal; Total Cells Counted 100
--- NOTE | 2017-12-31 22:30 | XRay Report ---
FINAL REPORT EXAM: XR CHEST 1V AP HISTORY: Dyspnea TECHNIQUE: Semi erect AP upright exam performed portably Comparison: 12/22/2017, 12/07/2017 FINDINGS: Normal heart size. Lungs are emphysematous. There is mild coarsening of the bronchovascular interstitium. There is scarring in the left midlung laterally. There is mild bronchial thickening unchanged from previous. Hilar contours are stable. IMPRESSION: Emphysema. Coarsened interstitial markings without focal infiltrate. Mild bronchial thickening chronically. Left midlung scarring.
[2018-01-01 01:12] VITALS: BP 131/76
== END 2018-01-01 01:00 | disposition home or self-care (01) ==
LOC: ED 20:13
DX: J45.901 Unspecified asthma with (acute) exacerbation (principal); D86.9 Sarcoidosis, unspecified; F31.9 Bipolar disorder, unspecified; Z87.891 Personal history of nicotine dependence
CPT/HCPCS: 36415; 71045; 80053; 83880; 85007; 85025; 93005; 93010; 94640

== ENCOUNTER 2018-01-04 22:02 | Inpatient (IN) | payer MEDICARE, OTHER ==
[2018-01-04] MEDS ORDERED: XOPENEX IH ONE (22:11)
[2018-01-04] MEDS ORDERED: ATROVENT IH ONE (22:11)
--- NOTE | 2018-01-04 22:19 | Emergency Department Report ---
ED Shortness of Breath HPI - General Chief Complaint: Dyspnea/Respdistress Stated Complaint: BILL Time Seen by Provider: 01/04/18 22:05 Source: EMS, old records reviewed Mode of arrival: Stretcher Limitations: No Limitations - History of Present Illness Initial Comments: 62-year-old male with a past medical history of COPD (not on home oxygen), sarcoidosis, and bipolar disorder presents to the hospital complaining shortness of breath and wheezing since yesterday. Positive cough productive of white thick sputum. No complaints of fever. Patient takes prednisone 10 mg daily. Using multiple nebs since yesterday without improvement. Patient had respiratory distress upon EMS arrival with a room air saturation of 90%. After receiving albuterol 5 mg, Solu-Medrol 125 mg, and magnesium 2 g symptoms improving but wheezing persists. Denies previous history of intubations. Patient does not have a binding end stitcher be scheduled for a first visit with a binding end stitcher early January. No pain reported. - Related Data Previous Rx's Medication Instructions Recorded Last Taken Type Acetaminophen [Acetaminophen TAB] 650 mg PO Q4H PRN #30 tablet 12/09/17 Unknown Rx Azithromycin [Zithromax TAB] 500 mg PO QDAY #5 day 12/09/17 Unknown Rx Budesoni/Formotero 160-4.5(Nf) 2 puff IH BID #1 unit 12/09/17 Unknown Rx [Symbicort 160-4.5 (Nf)] Divalproex ER [Depakote ER] 1,500 mg PO QDAY #30 day 12/09/17 Unknown Rx Famotidine [Pepcid] 20 mg PO BID #30 tablet 12/09/17 Unknown Rx Ipratropium/Albuterol Sulfate 1 ampul IH BID #30 ampul.neb 12/09/17 Unknown Rx [DUONEB *Not for PRN Use*] Montelukast [Singulair] 10 mg PO QAM #30 tablet 12/09/17 Unknown Rx Prednisone [predniSONE 10 mg 10 mg PO .TAPER #1 tab.ds.pk 12/09/17 Unknown Rx (6-Day Pack, 21 Tabs)] QUEtiapine [SEROquel] 600 mg PO QHS #30 day 12/09/17 Unknown Rx ALBUTEROL NEB's [Proventil 0.083% 5 mg IH Q4HRT PRN #30 nebu 03/12/18 Unknown Rx NEBS] Benzonatate [Tessalon Perle] 100 mg PO BID #12 capsule 12/22/17 Unknown Rx Doxycycline [Vibramycin CAP] 100 mg PO Q12HR #14 capsule 12/22/17 Unknown Rx predniSONE [Deltasone] 20 mg PO QDAY #5 tab 12/22/17 Unknown Rx Prednisone [predniSONE 10 mg 10 mg PO .TAPER #1 tab.ds.pk 01/01/18 Unknown Rx (6-Day Pack, 21 Tabs)] Allergies Allergy/AdvReac Type Severity Reaction Status Date / Time No Known Allergies Allergy Verified 12/22/17 16:53 ED Review of Systems ROS: Stated complaint: BILL Other details as noted in HPI Comment: All other systems reviewed and negative ED Past Medical Hx - Past Medical History Hx Psychiatric Treatment: Yes (Bipolar) Hx Asthma: Yes Additional medical history: Pulmonary sacrodosis - Surgical History Additional Surgical History: Left knee repair, tonsilectomy, Sialolithotomy - Social History Smoking Status: Former Smoker Substance Use Type: None - Medications Home Medications: Home Medications Medication Instructions Recorded Confirmed Last Taken Type Acetaminophen [Acetaminophen TAB] 650 mg PO Q4H PRN #30 tablet 12/09/17 Unknown Rx Azithromycin [Zithromax TAB] 500 mg PO QDAY #5 day 12/09/17 Unknown Rx Budesoni/Formotero 160-4.5(Nf) 2 puff IH BID #1 unit 12/09/17 Unknown Rx [Symbicort 160-4.5 (Nf)] Divalproex ER [Depakote ER] 1,500 mg PO QDAY #30 day 12/09/17 Unknown Rx Famotidine [Pepcid] 20 mg PO BID #30 tablet 12/09/17 Unknown Rx Ipratropium/Albuterol Sulfate 1 ampul IH BID #30 ampul.neb 12/09/17 Unknown Rx [DUONEB *Not for PRN Use*] Montelukast [Singulair] 10 mg PO QAM #30 tablet 12/09/17 Unknown Rx Prednisone [predniSONE 10 mg 10 mg PO .TAPER #1 tab.ds.pk 12/09/17 Unknown Rx (6-Day Pack, 21 Tabs)] QUEtiapine [SEROquel] 600 mg PO QHS #30 day 12/09/17 Unknown Rx ALBUTEROL NEB's [Proventil 0.083% 5 mg IH Q4HRT PRN #30 nebu 12/22/17 Unknown Rx NEBS] Benzonatate [Tessalon Perle] 100 mg PO BID #12 capsule 12/22/17 Unknown Rx Doxycycline [Vibramycin CAP] 100 mg PO Q12HR #14 capsule 12/22/17 Unknown Rx predniSONE [Deltasone] 20 mg PO QDAY #5 tab 12/22/17 Unknown Rx Prednisone [predniSONE 10 mg 10 mg PO .TAPER #1 tab.ds.pk 01/01/18 Unknown Rx (6-Day Pack, 21 Tabs)] ED Physical Exam - General Limitations: No Limitations - Other Other exam information: General: No limitations, patient is alert in no acute distress Head exam: Atraumatic, normocephalic Eyes exam: Normal appearance ENT: Moist mucous membrane, normal oropharynx Neck exam: Normal inspection, full range of motion Respiratory exam: Accessory muscle use, able to speak in sentences, expiratory wheezing, tachypnea Cardiovascular: Tachycardia regular rhythm Abdomen: Soft, nondistended, and nontender, with normal bowel sounds, no rebound, or guarding Extremity: Full range of motion normal inspection no deformity, no calf tenderness or edema Back: Normal Inspection, full range of motion, no tenderness Neurologic: Alert, oriented x3, cranial nerves intact, no motor or sensory deficit Psychiatric: normal affect, normal mood Skin: Warm, dry, intact ED Course Vital Signs 01/04/18 01/04/18 01/04/18 22:02 22:04 22:15 Temperature 97.5 F L Pulse Rate 122 H 124 H 122 H Pulse Rate [ Bilateral] Respiratory 19 23 22 Rate Respiratory Rate [Bilateral ] Blood Pressure 109/83 122/94 O2 Sat by Pulse 99 95 94 Oximetry 01/04/18 01/04/18 01/04/18 22:16 22:17 22:21 Temperature Pulse Rate 122 H Pulse Rate [ 123 H Bilateral] Respiratory 21 Rate Respiratory 19 Rate [Bilateral ] Blood Pressure O2 Sat by Pulse 95 Oximetry 01/04/18 01/04/18 22:31 22:45 Temperature Pulse Rate 123 H Pulse Rate [ 119 H Bilateral] Respiratory 15 Rate Respiratory 18 Rate [Bilateral ] Blood Pressure 104/81 O2 Sat by Pulse 96 Oximetry - Reevaluation(s) Reevaluation #1: 01/04/18 23:45 Persistent wheezing but feeling better ED Medical Decision Making - Lab Data Result diagrams: 01/04/18 22:22 01/04/18 22:22 Lab Results 01/04/18 01/04/18 Range/Units 22:22 22:22 WBC 6.8 (4.5-11.0) K/mm3 RBC 5.29 H (3.65-5.03) M/mm3 Hgb 15.9 H (11.8-15.2) gm/dl Hct 49.0 H (35.5-45.6) % MCV 93 (84-94) fl MCH 30 (28-32) pg MCHC 32 (32-34) % RDW 14.5 (13.2-15.2) % Plt Count 263 (140-440) K/mm3 Seg Neutrophils % Modeling Agent Sodium 137 (137-145) mmol/L Potassium 3.9 (3.6-5.0) mmol/L Chloride 98.2 (98-107) mmol/L Carbon Dioxide 24 (22-30) mmol/L Anion Gap 19 mmol/L BUN 14 (9-20) mg/dL Creatinine 0.8 (0.8-1.5) mg/dL Estimated GFR > 60 ml/min BUN/Creatinine Ratio 18 % Glucose 127 H (75-100) mg/dL Calcium 9.4 (8.4-10.2) mg/dL NT-Pro-B Natriuret Pep < 5 (0-900) pg/mL - EKG Data -: EKG Interpreted by [facility] EKG shows normal: sinus rhythm (89), axis (99), QRS complexes (98), ST-T waves ( no stemi/t inv) - Radiology Data Radiology results: report reviewed read by radiologist: cxr portable: Mild linear atelectasis at the right lung base otherwise clear - Medical Decision Making COPD/sarcoidosis Acute exacerbation Persistent wheezing despite home, EMS, and ED treatment Plan to admit to admit for further treatment - Differential Diagnosis COPD, sarcoidosis, pneumonia, asthma, bronchitis, CHF Critical Care Time: No Critical care attestation.: If time is entered above; I have spent that time in minutes in the direct care of this critically ill patient, excluding procedure time. ED Disposition Clinical Impression: Sarcoidosis, Asthma exacerbation in COPD Disposition: DC- OP ADMIT IP TO THIS HOSP Is pt being admited?: Yes Condition: Stable Time of Disposition: 23:40 (Dr Bangura/hosp)
[2018-01-04 22:46] LABS: Hemoglobin 15.9 gm/dl (11.8-15.2); Mean Corpuscular HGB Conc 32 % (32-34); Mean Corpuscular Hemoglobin 30 pg (28-32); Mean Corpuscular Volume 93 fl (84-94); Platelet Count 263 K/mm3 (140-440); Red Blood Count 5.29 M/mm3 (3.65-5.03); Red Cell Distribution Width 14.5 % (13.2-15.2)
[2018-01-04 22:56] LABS: BUN/Creatinine Ratio 18; Blood Urea Nitrogen 14 mg/dL (9-20); Calcium 9.4 mg/dL (8.4-10.2); Hemolysis Index 5
--- NOTE | 2018-01-04 23:31 | XRay Report ---
FINAL REPORT EXAM: XR CHEST 1V AP HISTORY: sob COMPARISON: December 31, 2017. FINDINGS: Frontal view(s) of the chest obtained. Cardiac silhouette within normal limits. Mild linear atelectasis at the right lung base. Otherwise, no gross consolidation or effusion. No pneumothorax. IMPRESSION: Mild linear atelectasis at the right lung base. Otherwise, lungs are clear.
--- NOTE | 2018-01-04 23:41 | History and Physical Report ---
History of Present Illness Date of examination: 01/04/18 History of present illness: 62-year-old man with a history of sarcoidosis, bipolar, asthma comes emergency room with complaints of shortness of breath ongoing over the last 2 days. He was seen here in the emergency room on December 31, discharged on steroids, nebulizer treatments which she is taking, however he states that there is no improvement in his symptoms. He complains of a cough productive of pratt phlegm , no fever or chills Review Of Systems: Constitutional: no weight loss Ears, eyes, nose, mouth and throat: no nasal congestion, no nasal discharge, no sinus pressure, blurry vision, diplopia Neck: No neck pain or rigidity. Cardiovascular: no Chest pain, orthopnea, palpitations Respiratory: + shortness of breath, cough Gastrointestinal: no abdominal pain, hematochezia Genitourinary : no dysuria, frequency , hematuria Musculoskeletal: no muscle ache Integumentary: no rash, no pruritis Neurological: no parathesias, focal weakness Endocrine: no cold or heat intolerance, no polyuria or polydipsia Hematologic/Lymphatic: no easy bruising, no easy bleeding, no gland swelling Allergic/Immunologic: no urticaria, no angioedema. PAST MEDICAL HISTORY: Bipolar, sarcoidosis, asthma PAST SURGICAL HISTORY: Knee surgery, tonsillectomy, salivary gland surgery SOCIAL HISTORY: Denies tobacco, alcohol, drugs FAMILY HISTORY: Hypertension Medications and Allergies Allergies Allergy/AdvReac Type Severity Reaction Status Date / Time No Known Allergies Allergy Verified 12/22/17 16:53 Home Medications Medication Instructions Recorded Confirmed Last Taken Type Budesoni/Formotero 160-4.5(Nf) 2 puff IH BID #1 unit 12/09/17 01/05/18 Unknown Rx [Symbicort 160-4.5 (Nf)] Divalproex ER [Depakote ER] 1,500 mg PO QDAY #30 day 12/09/17 01/05/18 Unknown Rx Famotidine [Pepcid] 20 mg PO BID #30 tablet 12/09/17 01/05/18 Unknown Rx Ipratropium/Albuterol Sulfate 1 ampul IH BID #30 ampul.neb 12/09/17 01/05/18 Unknown Rx [DUONEB *Not for PRN Use*] Montelukast [Singulair] 10 mg PO QAM #30 tablet 12/09/17 01/05/18 Unknown Rx QUEtiapine [SEROquel] 600 mg PO QHS #30 day 12/09/17 01/05/18 Unknown Rx ALBUTEROL NEB's [Proventil 0.083% 5 mg IH Q4HRT PRN #30 nebu 12/22/17 01/05/18 Unknown Rx NEBS] Benzonatate [Tessalon Perle] 100 mg PO BID #12 capsule 12/22/17 01/05/18 Unknown Rx Doxycycline [Vibramycin CAP] 100 mg PO Q12HR #14 capsule 12/22/17 01/05/18 Unknown Rx predniSONE [Deltasone] 20 mg PO QDAY #5 tab 12/22/17 01/05/18 Unknown Rx Exam - Physical Exam Narrative exam: Gen. appearance: Patient lying in bed, no apparent distress HEENT: Normocephalic, atraumatic, pupils equally round and reactive to light, extraocular movement intact, and no sclericterus,. No JVD or thyromegaly or nodule,neck supple, no carotid bruit ,mucous membranes moist, no exudate or erythema Heart: S1, S2, regular rate and rhythm Lungs: Diminished breath sounds, bilateral wheezing , breathing comfortable Abdomen: Positive bowel sounds, nontender, nondistended, no organomegaly Extremity: No edema, cyanosis, clubbing Skin: No rash, nodules, warm, dry Neuro: Oriented 3, cranial nerves II-12 intact, speech is fluent, motor and sensory intact - Constitutional Vitals: Temp Pulse Resp BP Pulse Ox 97.5 F L 119 H 18 104/81 96 01/04/18 22:04 01/04/18 22:45 01/04/18 22:45 01/04/18 22:31 01/04/18 22:31 Results - Labs CBC & Chem 7: 01/04/18 22:22 01/04/18 22:22 Labs: Abnormal lab results 01/04/18 01/04/18 Range/Units 22:22 22:22 RBC 5.29 H (3.65-5.03) M/mm3 Hgb 15.9 H (11.8-15.2) gm/dl Hct 49.0 H (35.5-45.6) % Glucose 127 H (75-100) mg/dL - Imaging and Cardiology EKG: image reviewed Chest x-ray: image reviewed Assessment and Plan Assessment Asthma exacerbation Sarcoidosis Bipolar Plan Admit to medicine Start high-dose IV steroids, nebulizer treatments Continue outpatient medications, start DVT prophylaxis
[2018-01-05 00:09] LABS: Band Neutrophils # (Manual) 0.1 K/mm3; Basophils % (Manual) 0 % (0.0-1.8); Total Cells Counted 100
[2018-01-05 00:10] LABS: RBC Morphology Normal
[2018-01-05] MEDS ORDERED: ZOFRAN IV PRN (00:40)
[2018-01-05] MEDS ORDERED: TYLENOL PO PRN (00:40)
[2018-01-05] MEDS ORDERED: SODIUM CHLORIDE FLUSH SYRINGE 10 ML IV PRN (00:40)
[2018-01-05] MEDS: DUONEB *Not for PRN Use IH SCH ×4 (08:20→20:20)
[2018-01-05] MEDS: LOVENOX SUB-Q SCH (10:31)
[2018-01-05] MEDS: TESSALON PERLES PO SCH ×2 (10:31→22:30)
[2018-01-05] MEDS: PEPCID PO SCH ×2 (10:31→22:30)
[2018-01-05] MEDS: SODIUM CHLORIDE FLUSH SYRINGE 10 ML IV SCH ×2 (10:32→22:31)
--- NOTE | 2018-01-05 14:21 | Progress Note ---
Assessment and Plan Acute hypoxic respiratory failure - due to asthma exacerbation, POA - cont nebs, O2, staroid Acute Asthma exacerbation - Monitor at med-surge unit - cont high-dose IV steroids, frequent nebulizer treatments h/o Sarcoidosis - cont steroid, monitor clinically Bipolar disorder - on seroquel Seizure disorder - cont keppra DVT prophylaxis - on lovnenox Brief history: 62-year-old man with a history of sarcoidosis, bipolar, asthma comes emergency room with complaints of shortness of breath ongoing over the last 2 days. He was seen here in the emergency room on December 31, discharged on steroids, nebulizer treatments which he was taking, however he stated that there was no improvement of his symptoms and came back for further evaluation. Radiological test: CXR - rt lung atelectasis, no infiltrates Hospitalist Physical exam: GENERAL: well-developed and well-nourished WM lying on bed appeared to be in no discomfort. HEENT: Normocephalic. Atraumatic. No conjunctival congestion or icterus. Patient has moist mucous membranes. NECK: Supple. Trachea midline. CHEST/LUNGS: diffuse wheezes auscultated bilaterally, breathing nonlabored. HEART/CARDIOVASCULAR: Regular in rate and rhythm. S1 and S2 positive. ABDOMEN: Abdomen is soft, nontender. Patient has normal bowel sounds. SKIN: There is no rash. Warm and dry. NEURO: No focal motor deficit. Follows command. MUSCULOSKELETAL: No joint effusion or tenderness. EXTRIMITY: No edema, no cyanosis or clubbing. PSYCH: Cooperative. . Subjective Date of service: 01/05/18 Interval history: Pt seen and examined c/o SOB with minimal exertion denies any chest pain Objective - Constitutional Vitals: Vital Signs - 12hr 01/05/18 01/05/18 01/05/18 08:20 08:30 08:33 Temperature 98.0 F Pulse Rate 117 H Pulse Rate [ 108 H 115 H Anterior Bilateral Throughout] Respiratory 22 Rate Respiratory 20 20 Rate [Anterior Bilateral Throughout] Blood Pressure 133/87 O2 Sat by Pulse 95 94 Oximetry - Labs CBC & Chem 7: 01/04/18 22:22 01/04/18 22:22 Labs: Abnormal lab results 01/04/18 01/04/18 Range/Units 22:22 22:22 RBC 5.29 H (3.65-5.03) M/mm3 Hgb 15.9 H (11.8-15.2) gm/dl Hct 49.0 H (35.5-45.6) % Seg Neuts % (Manual) 35.0 L (40.0-70.0) % Monocytes % (Manual) 10.0 H (0.0-7.3) % Eosinophils % (Manual) 16.0 H (0.0-4.3) % Eosinophils # (Manual) 1.1 H (0.0-0.4) K/mm3 Glucose 127 H (75-100) mg/dL
[2018-01-05] MEDS ORDERED: DESYREL PO SCH (22:00)
[2018-01-06] MEDS: DUONEB *Not for PRN Use IH SCH ×3 (01:41→15:24)
[2018-01-06 07:54] LABS: Basophils % (Auto) 0.1 % (0.0-1.8); Hematocrit 43.8 % (35.5-45.6); Hemoglobin 14.4 gm/dl (11.8-15.2); Lymphocytes # (Auto) 1.2 K/mm3 (1.2-5.4); Lymphocytes % (Auto) 6.9 % (13.4-35.0); Mean Corpuscular HGB Conc 33 % (32-34); Mean Corpuscular Hemoglobin 30 pg (28-32); Mean Corpuscular Volume 91 fl (84-94); Monocytes % (Auto) 5.6 % (0.0-7.3); Platelet Count 262 K/mm3 (140-440); Red Cell Distribution Width 14.7 % (13.2-15.2)
[2018-01-06] MEDS ORDERED: PULMICORT IH SCH (08:00)
[2018-01-06] MEDS ORDERED: BROVANA NEBU IH SCH (08:00)
[2018-01-06 08:26] LABS: BUN/Creatinine Ratio 26; Blood Urea Nitrogen 18 mg/dL (9-20); Calcium 9.3 mg/dL (8.4-10.2); Hemolysis Index 5
[2018-01-06] MEDS ORDERED: NON-FORMULARY (Budesoni/Formotero 160-4.5(Nf) 2 PUFF) IH SCH (10:00)
[2018-01-06] MEDS: TESSALON PERLES PO SCH (10:38)
[2018-01-06] MEDS: LOVENOX SUB-Q SCH (10:39)
[2018-01-06] MEDS: PEPCID PO SCH (10:40)
[2018-01-06] MEDS: SODIUM CHLORIDE FLUSH SYRINGE 10 ML IV SCH (10:40)
--- NOTE | 2018-01-06 15:42 | Progress Note ---
Hospitalist Physical - Constitutional Vitals: Temp Pulse Resp BP Pulse Ox 97.8 F 105 H 20 131/88 94 01/06/18 10:48 01/06/18 10:48 01/06/18 10:48 01/06/18 10:48 01/06/18 10:48 Results - Labs CBC & Chem 7: 01/06/18 07:31 01/06/18 07:31 Labs: Laboratory Last Values WBC 17.8 K/mm3 (4.5-11.0) H 01/06/18 07:31 RBC 4.80 M/mm3 (3.65-5.03) 01/06/18 07:31 Hgb 14.4 gm/dl (11.8-15.2) 01/06/18 07:31 Hct 43.8 % (35.5-45.6) 01/06/18 07:31 MCV 91 fl (84-94) 01/06/18 07:31 MCH 30 pg (28-32) 01/06/18 07:31 MCHC 33 % (32-34) 01/06/18 07:31 RDW 14.7 % (13.2-15.2) 01/06/18 07:31 Plt Count 262 K/mm3 (140-440) 01/06/18 07:31 Lymph % (Auto) 6.9 % (13.4-35.0) L 01/06/18 07:31 Desha % (Auto) 5.6 % (0.0-7.3) 01/06/18 07:31 Eos % (Auto) 0.0 % (0.0-4.3) 01/06/18 07:31 Baso % (Auto) 0.1 % (0.0-1.8) 01/06/18 07:31 Lymph # 1.2 K/mm3 (1.2-5.4) 01/06/18 07:31 Desha # 1.0 K/mm3 (0.0-0.8) H 01/06/18 07:31 Eos # 0.0 K/mm3 (0.0-0.4) 01/06/18 07:31 Baso # 0.0 K/mm3 (0.0-0.1) 01/06/18 07:31 Add Manual Diff Complete 01/04/18 22:22 Total Counted 100 01/04/18 22:22 Seg Neutrophils % 87.4 % (40.0-70.0) H 01/06/18 07:31 Seg Neuts % (Manual) 35.0 % (40.0-70.0) L 01/04/18 22:22 Band Neutrophils % 1.0 % 01/04/18 22:22 Lymphocytes % (Manual) 34.0 % (13.4-35.0) 01/04/18 22:22 Reactive Lymphs % (Man) 0 % 01/04/18 22:22 Monocytes % (Manual) 10.0 % (0.0-7.3) H 01/04/18 22:22 Eosinophils % (Manual) 16.0 % (0.0-4.3) H 01/04/18 22:22 Basophils % (Manual) 0 % (0.0-1.8) 01/04/18 22:22 Metamyelocytes % 4.0 % 01/04/18 22:22 Myelocytes % 0 % 01/04/18 22:22 Promyelocytes % 0 % 01/04/18 22:22 Blast Cells % 0 % 01/04/18 22:22 Nucleated RBC % Not Reportable 01/04/18 22:22 Seg Neutrophils # 15.6 K/mm3 (1.8-7.7) H 01/06/18 07:31 Seg Neutrophils # Man 2.4 K/mm3 (1.8-7.7) 01/04/18 22:22 Band Neutrophils # 0.1 K/mm3 01/04/18 22:22 Lymphocytes # (Manual) 2.3 K/mm3 (1.2-5.4) 01/04/18 22:22 Abs React Lymphs (Man) 0.0 K/mm3 01/04/18 22:22 Monocytes # (Manual) 0.7 K/mm3 (0.0-0.8) 01/04/18 22:22 Eosinophils # (Manual) 1.1 K/mm3 (0.0-0.4) H 01/04/18 22:22 Basophils # (Manual) 0.0 K/mm3 (0.0-0.1) 01/04/18 22:22 Metamyelocytes # 0.3 K/mm3 01/04/18 22:22 Myelocytes # 0.0 K/mm3 01/04/18 22:22 Promyelocytes # 0.0 K/mm3 01/04/18 22:22 Blast Cells # 0.0 K/mm3 01/04/18 22:22 WBC Morphology Not Reportable 01/04/18 22:22 Hypersegmented Neuts Not Reportable 01/04/18 22:22 Hyposegmented Neuts Not Reportable 01/04/18 22:22 Hypogranular Neuts Not Reportable 01/04/18 22:22 Smudge Cells Not Reportable 01/04/18 22:22 Toxic Granulation Not Reportable 01/04/18 22:22 Toxic Vacuolation Not Reportable 01/04/18 22:22 Dohle Bodies Not Reportable 01/04/18 22:22 Pelger-Huet Anomaly Not Reportable 01/04/18 22:22 Lucy Rods Not Reportable 01/04/18 22:22 Platelet Estimate Appears normal 01/04/18 22:22 Clumped Platelets Not Reportable 01/04/18 22:22 Plt Clumps, EDTA Not Reportable 01/04/18 22:22 Large Platelets Not Reportable 01/04/18 22:22 Giant Platelets Not Reportable 01/04/18 22:22 Platelet Satelliting Not Reportable 01/04/18 22:22 Plt Morphology Comment Not Reportable 01/04/18 22:22 RBC Morphology Normal 01/04/18 22:22 Dimorphic RBCs Not Reportable 01/04/18 22:22 Polychromasia Not Reportable 01/04/18 22:22 Hypochromasia Not Reportable 01/04/18 22:22 Poikilocytosis Not Reportable 01/04/18 22:22 Anisocytosis Not Reportable 01/04/18 22:22 Microcytosis Not Reportable 01/04/18 22:22 Macrocytosis Not Reportable 01/04/18 22:22 Spherocytes Not Reportable 01/04/18 22:22 Pappenheimer Bodies Not Reportable 01/04/18 22:22 Sickle Cells Not Reportable 01/04/18 22:22 Target Cells Not Reportable 01/04/18 22:22 Tear Drop Cells Not Reportable 01/04/18 22:22 Ovalocytes Not Reportable 01/04/18 22:22 Helmet Cells Not Reportable 01/04/18 22:22 Holt-Tracyton Bodies Not Reportable 01/04/18 22:22 York Rings Not Reportable 01/04/18 22:22 Shannock Cells Not Reportable 01/04/18 22:22 Bite Cells Not Reportable 01/04/18 22:22 Crenated Cell Not Reportable 01/04/18 22:22 Elliptocytes Not Reportable 01/04/18 22:22 Acanthocytes (Spur) Not Reportable 01/04/18 22:22 Rouleaux Not Reportable 01/04/18 22:22 Hemoglobin C Crystals Not Reportable 01/04/18 22:22 Schistocytes Not Reportable 01/04/18 22:22 Malaria parasites Not Reportable 01/04/18 22:22 Christopher Bodies Not Reportable 01/04/18 22:22 Hem Pathologist Commnt No 01/04/18 22:22 Sodium 137 mmol/L (137-145) 01/06/18 07:31 Potassium 4.6 mmol/L (3.6-5.0) 01/06/18 07:31 Chloride 100.0 mmol/L (98-107) 01/06/18 07:31 Carbon Dioxide 23 mmol/L (22-30) 01/06/18 07:31 Anion Gap 19 mmol/L 01/06/18 07:31 BUN 18 mg/dL (9-20) 01/06/18 07:31 Creatinine 0.7 mg/dL (0.8-1.5) L 01/06/18 07:31 Estimated GFR > 60 ml/min 01/06/18 07:31 BUN/Creatinine Ratio 26 % 01/06/18 07:31 Glucose 134 mg/dL (75-100) H 01/06/18 07:31 Calcium 9.3 mg/dL (8.4-10.2) 01/06/18 07:31 NT-Pro-B Natriuret Pep < 5 pg/mL (0-900) 01/04/18 22:22
--- NOTE | 2018-01-06 16:34 | Discharge Summary ---
Providers - Providers Date of Admission: 01/04/18 23:41 Date of discharge: 01/06/18 Attending physician: MELVIN HENRIQUEZ Primary care physician: MARCI MEADOWS Hospitalization Condition: Stable Disposition: DC-01 TO HOME OR SELFCARE Time spent for discharge: 31 min Core Measure Documentation - Palliative Care Palliative Care/ Comfort Measures: Not Applicable - Core Measures Any of the following diagnoses?: none Exam - Constitutional Vitals: Temp Pulse Resp BP Pulse Ox 97.8 F 105 H 20 131/88 94 01/06/18 10:48 01/06/18 10:48 01/06/18 10:48 01/06/18 10:48 01/06/18 10:48 General appearance: Present: no acute distress, well-nourished - EENT Eyes: Present: PERRL, EOM intact - Neck Neck: Present: supple, normal ROM - Respiratory Respiratory effort: normal Respiratory: bilateral: diminished, negative: rales, rhonchi, wheezing - Cardiovascular Rhythm: regular Heart Sounds: Present: S1 & S2 - Extremities Extremities: no ischemia, No edema - Abdominal General gastrointestinal: Present: soft, non-tender, non-distended, normal bowel sounds - Integumentary Integumentary: Present: clear, warm - Musculoskeletal Musculoskeletal: gait normal, strength equal bilaterally - Psychiatric Psychiatric: appropriate mood/affect, cooperative - Neurologic Neurologic: CNII-XII intact, moves all extremities Plan Activity: advance as tolerated Diet: low salt Additional Instructions: f/u PMD at [facility] 3-4 days. f/u Pulmonary at [facility] in 1-2 weeks. home o2 per [facility] Follow up with: MARCI MEADOWS MD [Primary Care Provider] - 3-5 Days
[2018-01-06 16:49] VITALS: BP 137/88
[2018-01-06] MEDS ORDERED: SINGULAIR PO SCH (18:00)
== END 2018-01-06 19:40 | disposition home or self-care (01) | DRG 189 ==
LOC: ED 22:02 → 3A 23:41
PROVIDERS: ADMIT Internal Medicine; ATTEND Internal Medicine
PROC: 5A09357 Assistance with Respiratory Ventilation, Less than 24 Consecutive Hours, Continuous Positive Airway Pressure (ICD-10-PCS; principal; 2018-01-06)
DX: J96.01 Acute respiratory failure with hypoxia (principal); J45.901 Unspecified asthma with (acute) exacerbation; J44.1 Chronic obstructive pulmonary disease with (acute) exacerbation; D86.9 Sarcoidosis, unspecified; G40.909 Epilepsy, unspecified, not intractable, without status epilepticus; F31.9 Bipolar disorder, unspecified; Z82.49 Family history of ischemic heart disease and other diseases of the circulatory system; Z79.899 Other long term (current) drug therapy
CPT/HCPCS: 36415; 71045; 80048; 83880; 85007; 85025; 93005; 93010; 94640; 94660; 94760; J1650; J2920; J2930

== ENCOUNTER 2018-02-06 15:52 | Emergency (ER) | payer OTHER ==
[2018-02-06] MEDS ORDERED: MAGNESIUM SULFATE 1 GM in NACL 0.9% 50 ML IV ONE (18:06)
[2018-02-06] MEDS ORDERED: PROVENTIL IH ONE (18:06)
[2018-02-06] MEDS ORDERED: ATROVENT IH ONE (18:06)
[2018-02-06 18:55] LABS: Basophils % (Auto) 0.4 % (0.0-1.8); Eosinophils # (Auto) 0.1 K/mm3 (0.0-0.4); Hematocrit 41.2 % (35.5-45.6); Hemoglobin 13.6 gm/dl (11.8-15.2); Lymphocytes # (Auto) 0.8 K/mm3 (1.2-5.4); Lymphocytes % (Auto) 13.7 % (13.4-35.0); Mean Corpuscular HGB Conc 33 % (32-34); Mean Corpuscular Hemoglobin 30 pg (28-32); Mean Corpuscular Volume 91 fl (84-94); Monocytes # (Auto) 0.3 K/mm3 (0.0-0.8); Monocytes % (Auto) 4.6 % (0.0-7.3); Platelet Count 270 K/mm3 (140-440); Red Blood Count 4.52 M/mm3 (3.65-5.03); Red Cell Distribution Width 14.2 % (13.2-15.2)
[2018-02-06 19:08] LABS: BUN/Creatinine Ratio 14; Blood Urea Nitrogen 10 mg/dL (9-20); Hemolysis Index 3
--- NOTE | 2018-02-06 20:58 | Emergency Department Report ---
ED Shortness of Breath HPI - General Chief Complaint: Dyspnea/Respdistress Stated Complaint: SHORTNESS OF BREATH Time Seen by Provider: 02/06/18 18:00 Source: patient Mode of arrival: Stretcher Limitations: No Limitations - History of Present Illness Initial Comments: Patient is 62-year-old [place] male who has a past medical history of COPD and sarcoidosis who is presenting with shortness of breath. Patient states that roughly 5 hours ago he started having some increased her breath. Patient taken to his albuterol treatments at home that did not help. Patient states had cough is nonproductive. Patient denies any fevers chills nausea vomiting or diarrhea. Patient states that he has a smothering sensation. - Related Data Previous Rx's Medication Instructions Recorded Last Taken Type Budesoni/Formotero 160-4.5(Nf) 2 puff IH BID #1 unit 12/09/17 Unknown Rx [Symbicort 160-4.5 (Nf)] Divalproex ER [Depakote ER] 1,500 mg PO QDAY #30 day 12/09/17 Unknown Rx Famotidine [Pepcid] 20 mg PO BID #30 tablet 12/09/17 Unknown Rx Ipratropium/Albuterol Sulfate 1 ampul IH BID #30 ampul.neb 12/09/17 Unknown Rx [DUONEB *Not for PRN Use*] Montelukast [Singulair] 10 mg PO QAM #30 tablet 12/09/17 Unknown Rx QUEtiapine [SEROquel] 600 mg PO QHS #30 day 12/09/17 Unknown Rx ALBUTEROL NEB's [Proventil 0.083% 5 mg IH Q4HRT PRN #30 nebu 12/22/17 Unknown Rx NEBS] Benzonatate [Tessalon Perle] 100 mg PO BID #12 capsule 12/22/17 Unknown Rx Doxycycline [Vibramycin CAP] 100 mg PO Q12HR #14 capsule 12/22/17 Unknown Rx predniSONE [Deltasone] 20 mg PO QDAY #5 tab 12/22/17 Unknown Rx Doxycycline [Vibramycin CAP] 100 mg PO Q12HR #14 capsule 02/06/18 Unknown Rx Prednisone [predniSONE 10 mg 10 mg PO .TAPER #1 tab.ds.pk 02/06/18 Unknown Rx (6-Day Pack, 21 Tabs)] Allergies Allergy/AdvReac Type Severity Reaction Status Date / Time No Known Allergies Allergy Verified 12/22/17 16:53 ED Review of Systems ROS: Stated complaint: SHORTNESS OF BREATH Other details as noted in HPI Comment: All other systems reviewed and negative ED Past Medical Hx - Past Medical History Hx Psychiatric Treatment: Yes (Bipolar) Hx Asthma: Yes Hx COPD: Yes Additional medical history: Pulmonary sacrodosis - Surgical History Additional Surgical History: Left knee repair, tonsilectomy, Sialolithotomy - Social History Smoking Status: Former Smoker Substance Use Type: None - Medications Home Medications: Home Medications Medication Instructions Recorded Confirmed Last Taken Type Budesoni/Formotero 160-4.5(Nf) 2 puff IH BID #1 unit 12/09/17 01/05/18 Unknown Rx [Symbicort 160-4.5 (Nf)] Divalproex ER [Depakote ER] 1,500 mg PO QDAY #30 day 12/09/17 01/05/18 Unknown Rx Famotidine [Pepcid] 20 mg PO BID #30 tablet 12/09/17 01/05/18 Unknown Rx Ipratropium/Albuterol Sulfate 1 ampul IH BID #30 ampul.neb 12/09/17 01/05/18 Unknown Rx [DUONEB *Not for PRN Use*] Montelukast [Singulair] 10 mg PO QAM #30 tablet 12/09/17 01/05/18 Unknown Rx QUEtiapine [SEROquel] 600 mg PO QHS #30 day 12/09/17 01/05/18 Unknown Rx ALBUTEROL NEB's [Proventil 0.083% 5 mg IH Q4HRT PRN #30 nebu 12/22/17 01/05/18 Unknown Rx NEBS] Benzonatate [Tessalon Perle] 100 mg PO BID #12 capsule 12/22/17 01/05/18 Unknown Rx Doxycycline [Vibramycin CAP] 100 mg PO Q12HR #14 capsule 12/22/17 01/05/18 Unknown Rx predniSONE [Deltasone] 20 mg PO QDAY #5 tab 12/22/17 01/05/18 Unknown Rx Doxycycline [Vibramycin CAP] 100 mg PO Q12HR #14 capsule 02/06/18 Unknown Rx Prednisone [predniSONE 10 mg 10 mg PO .TAPER #1 tab.ds.pk 02/06/18 Unknown Rx (6-Day Pack, 21 Tabs)] ED Physical Exam - General Limitations: No Limitations General appearance: alert, in no apparent distress - Head Head exam: Present: atraumatic, normocephalic - Eye Eye exam: Present: normal appearance - ENT ENT exam: Present: mucous membranes moist - Neck Neck exam: Present: normal inspection - Respiratory Respiratory exam: Present: wheezes, accessory muscle use, prolonged expiratory. Absent: normal lung sounds bilaterally, respiratory distress, rales, rhonchi, stridor - Cardiovascular Cardiovascular Exam: Present: normal rhythm, tachycardia. Absent: systolic murmur, diastolic murmur, rubs, gallop - GI/Abdominal GI/Abdominal exam: Present: soft, normal bowel sounds. Absent: distended, tenderness, guarding - Rectal Rectal exam: Present: deferred - Extremities Exam Extremities exam: Present: normal inspection - Back Exam Back exam: Present: normal inspection - Neurological Exam Neurological exam: Present: alert, oriented X3 - Psychiatric Psychiatric exam: Present: normal affect, normal mood - Skin Skin exam: Present: warm, dry, intact, normal color. Absent: rash ED Course Vital Signs 02/06/18 02/06/18 02/06/18 17:24 18:20 19:34 Temperature 98 F Pulse Rate 106 H 103 H Pulse Rate [ 100 H Anterior Bilateral Throughout] Respiratory 16 Rate Respiratory 22 Rate [Anterior Bilateral Throughout] Blood Pressure 118/73 Blood Pressure [Right] O2 Sat by Pulse 97 Oximetry 02/06/18 19:39 Temperature Pulse Rate 109 H Pulse Rate [ Anterior Bilateral Throughout] Respiratory 27 H Rate Respiratory Rate [Anterior Bilateral Throughout] Blood Pressure Blood Pressure 131/69 [Right] O2 Sat by Pulse 92 Oximetry ED Medical Decision Making - Lab Data Result diagrams: 02/06/18 18:44 02/06/18 18:44 - EKG Data -: EKG Interpreted by Me EKG shows normal: sinus rhythm, axis, intervals, QRS complexes, ST-T waves Rate: tachycardia - EKG Data Interpretation: normal EKG - Radiology Data Radiology results: image reviewed interpreted by me: No acute process on chest x-ray - Medical Decision Making Patient received an hour-long albuterol Atrovent treatment as well as Solu- Medrol and magnesium. After the treatment patient states he feels much improved. Patient still has a slight wheeze however is improved from and he arrived. Patient states he feels as though he's back to his baseline and would like to go home but states he will return if his symptoms decline again. Critical care attestation.: If time is entered above; I have spent that time in minutes in the direct care of this critically ill patient, excluding procedure time. ED Disposition Clinical Impression: Sarcoidosis, Bronchospasm Disposition: DC- TO HOME OR SELFCARE Is pt being admited?: No Does the pt Need Aspirin: No Condition: Stable Prescriptions: Doxycycline [Vibramycin CAP] 100 mg PO Q12HR #14 capsule Prednisone [predniSONE 10 mg (6-Day Pack, 21 Tabs)] 10 mg PO .TAPER #1 tab.ds.pk Referrals: MARCI MEADOWS MD [Primary Care Provider] - 3-5 Days
--- NOTE | 2018-02-06 21:55 | XRay Report ---
FINAL REPORT PROCEDURE: XR CHEST 1V AP TECHNIQUE: Chest radiograph anteroposterior view. CPT 32086 HISTORY: Shortness of breath COMPARISON: January 04, 2018 FINDINGS: Heart: Normal. Mediastinum/Vessels: Normal. Lungs/Pleural space: Lungs are hyperexpanded. Mild fibrotic densities. No focal infiltrate.. Bony thorax: No acute osseous abnormality. Life support devices: Monitoring devices.. IMPRESSION: No acute cardiopulmonary abnormality.
[2018-02-06 23:04] VITALS: BP 134/70
== END 2018-02-06 21:40 | disposition home or self-care (01) ==
LOC: ED 15:52
DX: J98.01 Acute bronchospasm (principal); D86.9 Sarcoidosis, unspecified; J45.909 Unspecified asthma, uncomplicated; F31.9 Bipolar disorder, unspecified
CPT/HCPCS: 36415; 71045; 80048; 85025; 93005; 93010; 94644; 96365; 96375; 99284; J2930; J3475

== ENCOUNTER 2018-03-06 21:57 | Emergency (ER) | payer MEDICARE, OTHER ==
[2018-03-06] MEDS ORDERED: ATROVENT IH ONE (22:20)
[2018-03-06] MEDS ORDERED: ADRENALIN SUB-Q ONE (22:20)
[2018-03-06] MEDS ORDERED: PROVENTIL IH ONE (22:20)
[2018-03-06] MEDS ORDERED: MAGNESIUM SULFATE 2GM/50ML 2 GM/50 ML BAG IV ONE (22:20)
[2018-03-06 22:56] LABS: Hematocrit 41.3 % (35.5-45.6); Hemoglobin 13.6 gm/dl (11.8-15.2); Mean Corpuscular HGB Conc 33 % (32-34); Mean Corpuscular Hemoglobin 30 pg (28-32); Mean Corpuscular Volume 91 fl (84-94); Platelet Count 267 K/mm3 (140-440); Red Blood Count 4.55 M/mm3 (3.65-5.03); Red Cell Distribution Width 15.1 % (13.2-15.2)
[2018-03-06 23:07] LABS: INR 0.92 (0.87-1.13)
[2018-03-06 23:09] LABS: BUN/Creatinine Ratio 14; Blood Urea Nitrogen 10 mg/dL (9-20); Hemolysis Index 3
[2018-03-06] MEDS ORDERED: NACL 0.9% 250ML 250 ML IV ONE (23:11)
--- NOTE | 2018-03-06 23:16 | Emergency Department Report ---
ED Shortness of Breath HPI - General Chief Complaint: Dyspnea/Respdistress Stated Complaint: BILL Time Seen by Provider: 03/06/18 22:13 Source: patient, EMS (ems notes not available at time of chart dictation), RN notes reviewed, old records reviewed Mode of arrival: Stretcher Limitations: No Limitations - History of Present Illness Initial Comments: This is a 62-year-old male whom I have evaluated in the past. His history includes sarcoid, oxygen dependent, steroid dependence, asthma versus COPD. He is brought to the hospital by EMS for cough, wheezing, shortness of breath. He is not having any pain. His symptoms are constant. It decreased with rest. They decreased with steroids. They worse with physical exertion. He denies DVT , pulmonary embolus risk factors. His symptoms have been constant over the past 4 days. MD Complaint: shortness of breath, cough, "asthma attack" -: Gradual Consistency: constant Improves With: oxygen, rest, bronchodilators, upright position, medication Worsens With: lying flat, exertion Known History Of: COPD, other Treatments Prior to Arrival: bronchodilator - Related Data Home Oxygen Therapy: Yes Home Oxygen Amount: 4 Liters Previous Rx's Medication Instructions Recorded Last Taken Type Budesoni/Formotero 160-4.5(Nf) 2 puff IH BID #1 unit 12/09/17 Unknown Rx [Symbicort 160-4.5 (Nf)] Divalproex ER [Depakote ER] 1,500 mg PO QDAY #30 day 12/09/17 Unknown Rx Famotidine [Pepcid] 20 mg PO BID #30 tablet 12/09/17 Unknown Rx Ipratropium/Albuterol Sulfate 1 ampul IH BID #30 ampul.neb 12/09/17 Unknown Rx [DUONEB *Not for PRN Use*] Montelukast [Singulair] 10 mg PO QAM #30 tablet 12/09/17 Unknown Rx QUEtiapine [SEROquel] 600 mg PO QHS #30 day 12/09/17 Unknown Rx ALBUTEROL NEB's [Proventil 0.083% 5 mg IH Q4HRT PRN #30 nebu 12/22/17 Unknown Rx NEBS] Benzonatate [Tessalon Perle] 100 mg PO BID #12 capsule 12/22/17 Unknown Rx Doxycycline [Vibramycin CAP] 100 mg PO Q12HR #14 capsule 12/22/17 Unknown Rx predniSONE [Deltasone] 20 mg PO QDAY #5 tab 12/22/17 Unknown Rx Doxycycline [Vibramycin CAP] 100 mg PO Q12HR #14 capsule 02/06/18 Unknown Rx Prednisone [predniSONE 10 mg 10 mg PO .TAPER #1 tab.ds.pk 02/06/18 Unknown Rx (6-Day Pack, 21 Tabs)] Albuterol Sulfate [Albuterol 0.63% 0.63 mg IH Q4HR PRN #2 ml 03/07/18 Unknown Rx NEBS] Albuterol Sulfate [Proair 90 mcg IH Q4HR PRN #2 aer.pow.ba 03/07/18 Unknown Rx Respiclick] Ipratropium [place] [Atrovent Hfa] 12.9 gm IH Q4HR #2 hfa.aer.ad 03/07/18 Unknown Rx Ipratropium [Atrovent NEB] 0.5 mg IH Q4HR #2 ml 03/07/18 Unknown Rx predniSONE [Deltasone] 40 mg PO QDAY #8 tab 03/07/18 Unknown Rx Allergies Allergy/AdvReac Type Severity Reaction Status Date / Time No Known Allergies Allergy Verified 12/22/17 16:53 ED Review of Systems ROS: Stated complaint: BILL Other details as noted in HPI Comment: All other systems reviewed and negative Constitutional: denies: fever Respiratory: shortness of breath Cardiovascular: denies: chest pain Gastrointestinal: denies: abdominal pain Genitourinary: denies: dysuria Musculoskeletal: denies: back pain Neurological: weakness ED Past Medical Hx - Past Medical History Previous Medical History?: Yes Hx Psychiatric Treatment: Yes (Bipolar) Hx Asthma: Yes Hx COPD: Yes Additional medical history: Pulmonary sacrodosis - Surgical History Past Surgical History?: Yes Additional Surgical History: Left knee repair, tonsilectomy, Sialolithotomy - Social History Smoking Status: Never Smoker Substance Use Type: None - Medications Home Medications: Home Medications Medication Instructions Recorded Confirmed Last Taken Type Budesoni/Formotero 160-4.5(Nf) 2 puff IH BID #1 unit 12/09/17 01/05/18 Unknown Rx [Symbicort 160-4.5 (Nf)] Divalproex ER [Depakote ER] 1,500 mg PO QDAY #30 day 12/09/17 01/05/18 Unknown Rx Famotidine [Pepcid] 20 mg PO BID #30 tablet 12/09/17 01/05/18 Unknown Rx Ipratropium/Albuterol Sulfate 1 ampul IH BID #30 ampul.neb 12/09/17 01/05/18 Unknown Rx [DUONEB *Not for PRN Use*] Montelukast [Singulair] 10 mg PO QAM #30 tablet 12/09/17 01/05/18 Unknown Rx QUEtiapine [SEROquel] 600 mg PO QHS #30 day 12/09/17 01/05/18 Unknown Rx ALBUTEROL NEB's [Proventil 0.083% 5 mg IH Q4HRT PRN #30 nebu 12/22/17 01/05/18 Unknown Rx NEBS] Benzonatate [Tessalon Perle] 100 mg PO BID #12 capsule 12/22/17 01/05/18 Unknown Rx Doxycycline [Vibramycin CAP] 100 mg PO Q12HR #14 capsule 12/22/17 01/05/18 Unknown Rx predniSONE [Deltasone] 20 mg PO QDAY #5 tab 12/22/17 01/05/18 Unknown Rx Doxycycline [Vibramycin CAP] 100 mg PO Q12HR #14 capsule 02/06/18 Unknown Rx Prednisone [predniSONE 10 mg 10 mg PO .TAPER #1 tab.ds.pk 02/06/18 Unknown Rx (6-Day Pack, 21 Tabs)] Albuterol Sulfate [Albuterol 0.63% 0.63 mg IH Q4HR PRN #2 ml 03/07/18 Unknown Rx NEBS] Albuterol Sulfate [Proair 90 mcg IH Q4HR PRN #2 aer.pow.ba 03/07/18 Unknown Rx Respiclick] Ipratropium [place] [Atrovent Hfa] 12.9 gm IH Q4HR #2 hfa.aer.ad 03/07/18 Unknown Rx Ipratropium [Atrovent NEB] 0.5 mg IH Q4HR #2 ml 03/07/18 Unknown Rx predniSONE [Deltasone] 40 mg PO QDAY #8 tab 03/07/18 Unknown Rx ED Physical Exam - General Limitations: No Limitations General appearance: alert, in no apparent distress - Head Head exam: Present: atraumatic, normocephalic - Eye Eye exam: Present: normal appearance, EOMI. Absent: nystagmus - ENT ENT exam: Present: normal exam, normal orophraynx, mucous membranes moist - Neck Neck exam: Present: normal inspection, full ROM - Respiratory Respiratory exam: Present: respiratory distress, wheezes, rhonchi. Absent: stridor - Cardiovascular Cardiovascular Exam: Present: normal rhythm, tachycardia, normal heart sounds. Absent: systolic murmur, diastolic murmur, rubs, gallop - GI/Abdominal GI/Abdominal exam: Present: soft, normal bowel sounds. Absent: distended, tenderness, guarding, rebound, rigid, pulsatile mass - Rectal Rectal exam: Present: deferred - Extremities Exam Extremities exam: Present: normal inspection, full ROM, normal capillary refill , other (there is no palpable cord. There is negative Homans sign.). Absent: pedal edema, joint swelling, calf tenderness - Back Exam Back exam: Present: normal inspection - Neurological Exam Neurological exam: Present: alert, oriented X3, CN II-XII intact, other ( Extraocular movements intact. Tongue midline. No facial droop. Facial sensation intact to light touch in the V1, V2, V3 distribution bilaterally. 5 and 5 strength in 4 extremities.. Sensation is intact to light touch in 4 extremities.). Absent: motor sensory deficit - Psychiatric Psychiatric exam: Present: normal affect, normal mood - Skin Skin exam: Present: warm, dry, intact, normal color. Absent: rash ED Course Vital Signs 03/06/18 03/06/18 03/07/18 22:50 23:40 00:20 Temperature 98.2 F Pulse Rate 101 H 99 H Respiratory 16 20 22 Rate Blood Pressure 129/86 Blood Pressure 130/81 [Left] O2 Sat by Pulse 97 98 98 Oximetry - Reevaluation(s) Reevaluation #1: 03/06/18 23:14 Differential diagnosis, including but not limited to: Sarcoid, pneumonia, asthma , reactive airway disease Assessment and plan: 62-year-old male with no pulmonary embolus or DVT risk factors, he is low risk by well's criteria, with a probable sarcoid examination. He is afebrile with reassuring vital signs. He will be given albuterol, Atrovent, steroids, magnesium, subcutaneous epinephrine, we will reassess. He is speaking in full sentences, and looks quite comfortable, and is watching the basketball game currently on tv quite avidly. Reevaluation #2: 03/07/18 01:00 The patient is reassessed. The patient feels improved. He is still wheezing but when given a trial of ambulation on oxygen, he saturates at 94%. He indicates that he feels "ready to go." The patient will be discharged. ED Medical Decision Making - Lab Data Result diagrams: 03/06/18 22:40 03/06/18 22:40 Vital Signs 03/06/18 22:50 Temperature 98.2 F Pulse Rate 101 H Respiratory 16 Rate Blood Pressure 129/86 O2 Sat by Pulse 97 Oximetry Lab Results 03/06/18 03/06/18 03/06/18 Range/Units 22:40 22:40 22:40 WBC 5.3 (4.5-11.0) K/mm3 RBC 4.55 (3.65-5.03) M/mm3 Hgb 13.6 (11.8-15.2) gm/dl Hct 41.3 (35.5-45.6) % MCV 91 (84-94) fl MCH 30 (28-32) pg MCHC 33 (32-34) % RDW 15.1 (13.2-15.2) % Plt Count 267 (140-440) K/mm3 PT 12.8 (12.2-14.9) Sec. INR 0.92 (0.87-1.13) Sodium 142 (137-145) mmol/L Potassium 4.3 (3.6-5.0) mmol/L Chloride 100.3 (98-107) mmol/L Carbon Dioxide 28 (22-30) mmol/L Anion Gap 18 mmol/L BUN 10 (9-20) mg/dL Creatinine 0.7 L (0.8-1.5) mg/dL Estimated GFR > 60 ml/min BUN/Creatinine Ratio 14 % Glucose 106 H (75-100) mg/dL Calcium 10.0 (8.4-10.2) mg/dL - EKG Data -: EKG Interpreted by Co EKG shows normal: sinus rhythm, axis, intervals, QRS complexes, ST-T waves - EKG Data When compared to previous EKG there are: no significant change Interpretation: normal EKG, unchanged when compared t - Radiology Data Radiology results: report reviewed X-ray of the chest, interpreted by radiology: No acute disease. Critical care attestation.: If time is entered above; I have spent that time in minutes in the direct care of this critically ill patient, excluding procedure time. ED Disposition Clinical Impression: Sarcoidosis Disposition: DC-01 TO HOME OR SELFCARE Is pt being admited?: No Does the pt Need Aspirin: No Condition: Stable Instructions: Asthma (ED) Additional Instructions: Take the medications as directed. Follow up with the pulmonary doctor or primary care doctor within the next 5-7 days for repeat evaluation. Return to the ER right away with new pain, worsened pain, migration of pain, fevers, chills, lethargy, irritability, projectile vomiting, change in mental status, confusion, inability to tolerate liquid feeds, worsening shortness of breath. Referrals: PRIMARY CARE, [Primary Care Provider] - 3-5 Days ABIGAIL OBRIEN MD [Staff Physician] - 3-5 Days LEEANNA NOGUERA MD [Staff Physician] - 3-5 Days
--- NOTE | 2018-03-07 00:17 | XRay Report ---
FINAL REPORT PROCEDURE: XR CHEST 1V AP TECHNIQUE: Chest radiograph anteroposterior view. CPT 14723 HISTORY: Dyspnea COMPARISON: 02/06/2018 FINDINGS: Heart: Normal. Mediastinum/Vessels: Normal. Lungs/Pleural space: Lungs are hyperinflated. There are no confluent infiltrates or mass lesions. Pleural spaces are clear.. Bony thorax: No acute osseous abnormality. Life support devices: None. IMPRESSION: COPD No acute pulmonary process.
[2018-03-07 00:21] VITALS: BP 130/81
== END 2018-03-07 01:20 | disposition home or self-care (01) ==
LOC: ED 21:57
DX: D86.9 Sarcoidosis, unspecified (principal); J44.9 Chronic obstructive pulmonary disease, unspecified
CPT/HCPCS: 36415; 71045; 80048; 85027; 85610; 93005; 93010; 96365; 96372; 96375; 99285; J0171; J2930; J3475; J7050

== ENCOUNTER 2018-10-17 23:41 | Inpatient (IN) | payer OTHER ==
[2018-10-17] MEDS ORDERED: ATROVENT IH ONE (23:54)
[2018-10-17] MEDS ORDERED: PROVENTIL IH ONE (23:54)
--- NOTE | 2018-10-18 00:16 | XRay Report ---
FINAL REPORT EXAM: XR CHEST 1V AP HISTORY: sob, cough TECHNIQUE: A portable upright view the chest was obtained and compared to the study of 08/07/2018 FINDINGS: The heart size and vascularity appear normal. The lungs are clear. Pleural fluid is not seen. The bon es soft tissues do not show any acute changes. IMPRESSION: No acute cardiopulmonary process.
[2018-10-18 00:26] LABS: Basophils # (Auto) 0.1 K/mm3 (0.0-0.1); Basophils % (Auto) 0.6 % (0.0-1.8); Eosinophils # (Auto) 0.6 K/mm3 (0.0-0.4); Eosinophils % (Auto) 6.1 % (0.0-4.3); Hematocrit 43.3 % (35.5-45.6); Hemoglobin 14.4 gm/dl (11.8-15.2); Lymphocytes # (Auto) 3.3 K/mm3 (1.2-5.4); Mean Corpuscular HGB Conc 33 % (32-34); Mean Corpuscular Volume 93 fl (84-94); Monocytes # (Auto) 1.5 K/mm3 (0.0-0.8); Platelet Count 233 K/mm3 (140-440); Red Blood Count 4.66 M/mm3 (3.65-5.03); Red Cell Distribution Width 15.6 % (13.2-15.2)
[2018-10-18 01:22] LABS: BUN/Creatinine Ratio 10; Blood Urea Nitrogen 6 mg/dL (9-20); Calcium 9.3 mg/dL (8.4-10.2); Hemolysis Index 19
--- NOTE | 2018-10-18 01:39 | Emergency Department Report ---
ED Shortness of Breath HPI - General Chief Complaint: Dyspnea/Respdistress Stated Complaint: DIFFICULTY IN BREATHING Time Seen by Provider: 10/17/18 23:48 Source: patient, EMS Mode of arrival: Stretcher Limitations: No Limitations - History of Present Illness Initial Comments: 63 yo male with a hx COPD, asthma, and sarcoidosis presents to Hospital compl aints of shortness of breath and wheezing progressing worsening of the last 3 days. Symptoms acutely worsened this evening. Paramedics report a room air saturation 84-85% and respiratory distress upon their arrival. Patient was provided supplemental oxygen, albuterol 5mg, Solu-Medrol 125, and magnesium 2 g reports feeling better but not all the way back to normal. He denies pain. Complains of mild cough productive of white sputum without fever. Patient states he feels like he needs to be admitted. Completed a two-week course of prednisone last week. This was prescribed by his doctors at the [facility]. Denies previous history of intubations but has required hospitalization in the past. Patient states he does not use home O2 MD Complaint: shortness of breath - Related Data Home Medications Medication Instructions Recorded Confirmed Last Taken ALBUTEROL NEB's [Proventil 0.083% 2.5 mg IH Q6HRT PRN 08/07/18 08/07/18 Unknown NEBS] Albuterol Sulfate [Proair 180 mcg IH Q4H 08/07/18 08/07/18 Unknown Respiclick] Cholecalciferol Vit D3 [Vitamin D3] 2,000 unit PO DAILY 08/07/18 08/07/18 Unknown Divalproex ER [Depakote ER] 1,000 mg PO DAILY 08/07/18 08/07/18 Unknown Ipratropium [place] [Atrovent Hfa] 2 puff IH Q4HR 08/07/18 08/07/18 Unknown Montelukast [Singulair] 10 mg PO DAILY 08/07/18 08/07/18 Unknown QUEtiapine [SEROquel] 600 mg PO QHS 08/07/18 08/07/18 Unknown Tiotropium [Spiriva] 2 puff IH DAILY 08/07/18 08/07/18 Unknown Trazodone HCl 100 mg PO QHS PRN 08/07/18 08/07/18 Unknown Previous Rx's Medication Instructions Recorded Last Taken Type Budesoni/Formotero 160-4.5(Nf) 2 puff IH BID #1 unit 12/09/17 Unknown Rx [Symbicort 160-4.5 (Nf)] levoFLOXacin [Levaquin TAB] 750 mg PO DAILY #4 tablet 08/11/18 Unknown Rx predniSONE [Deltasone] 1 dose PO DAILY 30 Days tablet 08/11/18 Unknown Rx Allergies Allergy/AdvReac Type Severity Reaction Status Date / Time No Known Allergies Allergy Verified 12/22/17 16:53 ED Review of Systems ROS: Stated complaint: DIFFICULTY IN BREATHING Other details as noted in HPI Comment: All other systems reviewed and negative ED Past Medical Hx - Past Medical History Previous Medical History?: Yes Hx Psychiatric Treatment: Yes (Bipolar) Hx Asthma: Yes Hx COPD: Yes Additional medical history: Pulmonary sacrodosis. emphysema - Surgical History Past Surgical History?: Yes Additional Surgical History: Left knee repair, tonsilectomy, Sialolithotomy - Social History Smoking Status: Never Smoker Substance Use Type: None - Medications Home Medications: Home Medications Medication Instructions Recorded Confirmed Last Taken Type Budesoni/Formotero 160-4.5(Nf) 2 puff IH BID #1 unit 12/09/17 08/07/18 Unknown Rx [Symbicort 160-4.5 (Nf)] ALBUTEROL NEB's [Proventil 0.083% 2.5 mg IH Q6HRT PRN 08/07/18 08/07/18 Unknown History NEBS] Albuterol Sulfate [Proair 180 mcg IH Q4H 08/07/18 08/07/18 Unknown History Respiclick] Cholecalciferol Vit D3 [Vitamin D3] 2,000 unit PO DAILY 08/07/18 08/07/18 Unknown History Divalproex ER [Depakote ER] 1,000 mg PO DAILY 08/07/18 08/07/18 Unknown History Ipratropium [place] [Atrovent Hfa] 2 puff IH Q4HR 08/07/18 08/07/18 Unknown History Montelukast [Singulair] 10 mg PO DAILY 08/07/18 08/07/18 Unknown History QUEtiapine [SEROquel] 600 mg PO QHS 08/07/18 08/07/18 Unknown History Tiotropium [Spiriva] 2 puff IH DAILY 08/07/18 08/07/18 Unknown History Trazodone HCl 100 mg PO QHS PRN 08/07/18 08/07/18 Unknown History levoFLOXacin [Levaquin TAB] 750 mg PO DAILY #4 tablet 08/11/18 Unknown Rx predniSONE [Deltasone] 1 dose PO DAILY 30 Days tablet 08/11/18 Unknown Rx ED Physical Exam - General Limitations: No Limitations - Other Other exam information: General: No limitations, patient is alert in no acute distress Head exam: Atraumatic, normocephalic Eyes exam: Normal appearance ENT: Moist mucous membrane, normal oropharynx Neck exam: Normal inspection, full range of motion, no meningismus nontender Respiratory exam: Bilateral wheezing and mild tachypnea. Able to speak in complete sentences Cardiovascular: Mild Tachycardic regular rhythm Abdomen: Soft, nondistended, and nontender, with normal bowel sounds, no rebound, or guarding Extremity: Full range of motion normal inspection no deformity Back: Normal Inspection, full range of motion, no tenderness Neurologic: Alert, oriented x3, cranial nerves intact, no motor or sensory deficit Psychiatric: normal affect, normal mood Skin: Warm, dry, intact ED Course Vital Signs 10/17/18 10/18/18 23:54 01:11 Temperature 97.8 F Pulse Rate 110 H Pulse Rate [ 96 H Bilateral Throughout] Respiratory 23 Rate Respiratory 18 Rate [Bilateral Throughout] Blood Pressure 123/82 [Left] O2 Sat by Pulse 95 Oximetry ED Medical Decision Making - Lab Data Result diagrams: 10/18/18 00:02 10/18/18 00:02 Lab Results 10/18/18 10/18/18 Range/Units 00:02 00:02 WBC 9.7 (4.5-11.0) K/mm3 RBC 4.66 (3.65-5.03) M/mm3 Hgb 14.4 (11.8-15.2) gm/dl Hct 43.3 (35.5-45.6) % MCV 93 (84-94) fl MCH 31 (28-32) pg MCHC 33 (32-34) % RDW 15.6 H (13.2-15.2) % Plt Count 233 (140-440) K/mm3 Lymph % (Auto) 34.0 (13.4-35.0) % [place] % (Auto) 15.0 H (0.0-7.3) % Eos % (Auto) 6.1 H (0.0-4.3) % Baso % (Auto) 0.6 (0.0-1.8) % Lymph # 3.3 (1.2-5.4) K/mm3 [place] # 1.5 H (0.0-0.8) K/mm3 Eos # 0.6 H (0.0-0.4) K/mm3 Baso # 0.1 (0.0-0.1) K/mm3 Seg Neutrophils % 44.3 (40.0-70.0) % Seg Neutrophils # 4.3 (1.8-7.7) K/mm3 Sodium 140 (137-145) mmol/L Potassium 4.0 (3.6-5.0) mmol/L Chloride 101.2 (98-107) mmol/L Carbon Dioxide 24 (22-30) mmol/L Anion Gap 19 mmol/L BUN 6 L (9-20) mg/dL Creatinine 0.6 L (0.8-1.5) mg/dL Estimated GFR > 60 ml/min BUN/Creatinine Ratio 10 % Glucose 103 H (75-100) mg/dL Calcium 9.3 (8.4-10.2) mg/dL - EKG Data -: EKG Interpreted by Or EKG shows normal: sinus rhythm, axis (qrs 64), QRS complexes (qrsd 91), ST-T waves (no steim/ t inv) Rate: tachycardia (103) - EKG Data When compared to previous EKG there are: no significant change - Radiology Data Radiology results: report reviewed (cxr: naf) - Medical Decision Making Plans admit patient to the hospital due to persistent wheezing despite EMS and ED treatment. - Differential Diagnosis pneumonia, bronchitis, CHF, COPD Critical Care Time: No Critical care attestation.: If time is entered above; I have spent that time in minutes in the direct care of this critically ill patient, excluding procedure time. ED Disposition Clinical Impression: Asthma exacerbation in COPD, Sarcoidosis, Hypoxia Disposition: OP ADMIT IP TO THIS HOSP Is pt being admited?: Yes Condition: Stable Time of Disposition: 01:41 (Dr. Bangura / hospitalist)
[2018-10-18] MEDS ORDERED: TYLENOL PO PRN (03:10)
[2018-10-18] MEDS ORDERED: ZOFRAN IV PRN (03:10)
[2018-10-18] MEDS ORDERED: SODIUM CHLORIDE FLUSH SYRINGE 10 ML IV PRN (03:10)
--- NOTE | 2018-10-18 03:12 | History and Physical Report ---
History of Present Illness Date of examination: 10/18/18 History of present illness: 63-year-old man with a history of sarcoidosis, bipolar, asthma comes emergency room with complaints of shortness of breath that worsened yesterday. His symptoms are on relief with nebulizer treatments, has a cough productive of white phlegm. He is been on steroid taper which he has completed 3 days ago, symptoms began to worsen after completion of his steroids. He Complains of a cough productive of white phlegm, no fever or chills. Also complaining of chest pain, epigastric, feels like her something sitting on his chest, constant for 3 minutes, no radiation, and it identified thus relieving factors Review Of Systems: Constitutional: no weight loss Ears, eyes, nose, mouth and throat: no nasal congestion, no nasal discharge, no sinus pressure, blurry vision, diplopia Neck: No neck pain or rigidity. Cardiovascular: no Chest pain, orthopnea, palpitations Respiratory: + shortness of breath, cough Gastrointestinal: no abdominal pain, hematochezia Genitourinary : no dysuria, frequency , hematuria Musculoskeletal: no muscle ache Integumentary: no rash, no pruritis Neurological: no parathesias, focal weakness Endocrine: no cold or heat intolerance, no polyuria or polydipsia Hematologic/Lymphatic: no easy bruising, no easy bleeding, no gland swelling Allergic/Immunologic: no urticaria, no angioedema. PAST MEDICAL HISTORY: Bipolar, sarcoidosis, asthma PAST SURGICAL HISTORY: Knee surgery, tonsillectomy, salivary gland surgery SOCIAL HISTORY: Denies tobacco, alcohol, drugs FAMILY HISTORY: Hypertension Medications and Allergies Allergies Allergy/AdvReac Type Severity Reaction Status Date / Time No Known Allergies Allergy Verified 12/22/17 16:53 Home Medications Medication Instructions Recorded Confirmed Last Taken Type Budesoni/Formotero 160-4.5(Nf) 2 puff IH BID #1 unit 12/09/17 08/07/18 Unknown R x [Symbicort 160-4.5 (Nf)] ALBUTEROL NEB's [Proventil 0.083% 2.5 mg IH Q6HRT PRN 08/07/18 08/07/18 Unknown History NEBS] Albuterol Sulfate [Proair 180 mcg IH Q4H 08/07/18 08/07/18 Unknown History Respiclick] Cholecalciferol Vit D3 [Vitamin D3] 2,000 unit PO DAILY 08/07/18 08/07/18 Unknown History Divalproex ER [Depakote ER] 1,000 mg PO DAILY 08/07/18 08/07/18 Unknown History Ipratropium [place] [Atrovent Hfa] 2 puff IH Q4HR 08/07/18 08/07/18 Unknown History Montelukast [Singulair] 10 mg PO DAILY 08/07/18 08/07/18 Unknown History QUEtiapine [SEROquel] 600 mg PO QHS 08/07/18 08/07/18 Unknown History Tiotropium [Spiriva] 2 puff IH DAILY 08/07/18 08/07/18 Unknown History Trazodone HCl 100 mg PO QHS PRN 08/07/18 08/07/18 Unknown History levoFLOXacin [Levaquin TAB] 750 mg PO DAILY #4 tablet 08/11/18 Unknown Rx predniSONE [Deltasone] 1 dose PO DAILY 30 Days tablet 08/11/18 Unknown Rx Active Meds: Active Medications Acetaminophen (Tylenol) 650 mg PO Q4H PRN PRN Reason: Pain MILD(1-3)/Fever >100.5/TURCIOS Enoxaparin Sodium (Lovenox) 30 mg SUB-Q QDAY JANIAN Exam - Physical Exam Narrative exam: Gen. appearance: Patient lying in bed, no apparent distress HEENT: Normocephalic, atraumatic, pupils equally round and reactive to light, extraocular movement intact, and no sclericterus,. No JVD or thyromegaly or nodule,neck supple, no carotid bruit ,mucous membranes moist, no exudate or erythema Heart: S1, S2, regular rate and rhythm Lungs: Coarse breath sounds, bilateral wheezing , breathing comfortable Abdomen: Positive bowel sounds, nontender, nondistended, no organomegaly Extremity: No edema, cyanosis, clubbing Skin: No rash, nodules, warm, dry Neuro: Oriented 3, cranial nerves II-12 intact, speech is fluent, motor and sensory intact - Constitutional Vitals: Temp Pulse Resp BP Pulse Ox 97.8 F 96 H 16 114/78 95 10/17/18 23:54 10/18/18 02:30 10/18/18 02:30 10/18/18 02:16 10/18/18 02:16 Results - Labs CBC & Chem 7: 10/18/18 03:30 10/18/18 03:30 Labs: Abnormal lab results 10/18/18 10/18/18 Range/Units 00:02 00:02 RDW 15.6 H (13.2-15.2) % [place] % (Auto) 15.0 H (0.0-7.3) % Eos % (Auto) 6.1 H (0.0-4.3) % [place] # 1.5 H (0.0-0.8) K/mm3 Eos # 0.6 H (0.0-0.4) K/mm3 BUN 6 L (9-20) mg/dL Creatinine 0.6 L (0.8-1.5) mg/dL Glucose 103 H (75-100) mg/dL - Imaging and Cardiology Chest x-ray: report reviewed Assessment and Plan Assessment Asthma exacerbation Chest pain Sarcoidosis Bipolar Plan Admit to medicine Start high-dose IV steroids, nebulizer treatments, consult pulmonary Check cardiac enzymes, stress test Continue outpatient medications, start DVT prophylaxis
[2018-10-18 03:40] LABS: Hematocrit 43.7 % (35.5-45.6); Hemoglobin 14.6 gm/dl (11.8-15.2); Mean Corpuscular HGB Conc 33 % (32-34); Mean Corpuscular Volume 94 fl (84-94); Platelet Count 217 K/mm3 (140-440); Red Blood Count 4.66 M/mm3 (3.65-5.03); Red Cell Distribution Width 15.5 % (13.2-15.2)
[2018-10-18 04:21] LABS: BUN/Creatinine Ratio 10; Blood Urea Nitrogen 7 mg/dL (9-20); Calcium 9.5 mg/dL (8.4-10.2); Hemolysis Index 24
[2018-10-18] MEDS: SOLU-Medrol IV SCH ×4 (04:26→20:11)
[2018-10-18 05:56] LABS: Anisocytosis 1+; Band Neutrophils # (Manual) 0.8 K/mm3; Basophils % (Manual) 0 % (0.0-1.8); Eosinophils % (Manual) 0 % (0.0-4.3); Platelet Estimate Consistent w Auto; Total Cells Counted 100
[2018-10-18 08:02] LABS: Creatine Kinase MB 1.9 ng/mL (0.0-4.0)
[2018-10-18] MEDS: DUONEB *Not for PRN Use IH SCH ×3 (08:25→21:00)
[2018-10-18] MEDS: LOVENOX SUB-Q SCH (09:37)
[2018-10-18] MEDS: SODIUM CHLORIDE FLUSH SYRINGE 10 ML IV SCH ×2 (09:37→20:12)
[2018-10-18] MEDS ORDERED: LOVENOX SUB-Q SCH (10:00)
--- NOTE | 2018-10-18 10:54 | Event Note ---
Date: 10/18/18 Patient reevaluated Doing better
[2018-10-18] MEDS ORDERED: PROVENTIL IH PRN (11:38)
[2018-10-18] MEDS ORDERED: NON-FORMULARY (Budesoni/Formotero 160-4.5(Nf) 2 PUFF) IH SCH (11:45)
[2018-10-18] MEDS ORDERED: IPRATROPIUM BROMIDE IH SCH (11:45)
[2018-10-18] MEDS ORDERED: PULMICORT IH SCH (12:30)
[2018-10-18] MEDS: VITAMIN D3 PO SCH (12:40)
[2018-10-18] MEDS: SINGULAIR PO SCH (12:41)
--- NOTE | 2018-10-18 12:53 | Consultation ---
History of Present Illness Consult date: 10/18/18 Requesting physician: CODY MENG Reason for consult: asthma [facility] (Full dictation # [id number]) Please see dictated notes for full details Medications and Allergies Allergies Allergy/AdvReac Type Severity Reaction Status Date / Time No Known Allergies Allergy Verified 12/22/17 16:53 Home Medications Medication Instructions Recorded Confirmed Last Taken Type Budesoni/Formotero 160-4.5(Nf) 2 puff IH BID #1 unit 12/09/17 10/18/18 10/16/18 09:00 Rx [Symbicort 160-4.5 (Nf)] ALBUTEROL NEB's [Proventil 0.083% 2.5 mg IH Q6HRT PRN 08/07/18 10/18/18 10/16/18 09:00 History NEBS] Albuterol Sulfate [Proair 180 mcg IH Q4H 08/07/18 10/18/18 10/16/18 09:00 History Respiclick] Cholecalciferol Vit D3 [Vitamin D3] 2,000 unit PO DAILY 08/07/18 10/18/18 Unknown History Divalproex ER [Depakote ER] 1,000 mg PO DAILY 08/07/18 10/18/18 10/16/18 09:00 History Ipratropium [place] [Atrovent Hfa] 2 puff IH Q4HR 08/07/18 10/18/18 10/16/18 09:00 History Montelukast [Singulair] 10 mg PO DAILY 08/07/18 10/18/18 10/17/18 09:00 History QUEtiapine [SEROquel] 600 mg PO QHS 08/07/18 10/18/18 10/16/18 21:00 History Tiotropium [Spiriva] 2 puff IH DAILY 08/07/18 10/18/18 10/16/18 09:00 History Trazodone HCl 100 mg PO QHS PRN 08/07/18 10/18/18 10/16/18 21:00 History levoFLOXacin [Levaquin TAB] 750 mg PO DAILY #4 tablet 08/11/18 10/18/18 Unknown Rx predniSONE [Deltasone] 1 dose PO DAILY 30 Days tablet 08/11/18 10/18/18 10/01/18 10:00 Rx Active Meds: Active Medications Acetaminophen (Tylenol) 650 mg PO Q4H PRN PRN Reason: Pain MILD(1-3)/Fever >100.5/TURCIOS Albuterol (Proventil) 2.5 mg IH Q6HRT PRN PRN Reason: Shortness Of Breath Albuterol/Ipratropium (Duoneb *Not For Prn Use*) 1 ampul IH Q6HRT [facility] Last Admin: 10/18/18 08:25 Dose: 1 ampul Documented by: Arformoterol Tartrate (Brovana Nebu) 15 mcg IH Q12HRT [facility] Budesonide (Pulmicort) 1 mg IH Q12HRT [facility] Cholecalciferol (Vitamin D3) 2,000 unit PO DAILY [facility] Last Admin: 10/18/18 12:40 Dose: 2,000 unit Documented by: Divalproex Sodium (Depakote Er) 1,000 mg PO DAILY [facility] Last Admin: 10/18/18 12:40 Dose: 1,000 mg Documented by: Enoxaparin Sodium (Lovenox) 40 mg SUB-Q QDAY@1000 [facility] Last Admin: 10/18/18 09:37 Dose: 40 mg Documented by: Ipratropium [place] (Atrovent) 0.5 mg IH Q8HRT [facility] Methylprednisolone Sodium Succinate (Solu-Medrol) 125 mg IV Q6H [facility] Last Admin: 10/18/18 09:37 Dose: 125 mg Documented by: Montelukast Sodium (Singulair) 10 mg PO DAILY [facility] Last Admin: 10/18/18 12:41 Dose: 10 mg Documented by: Ondansetron HCl (Zofran) 4 mg IV Q8H PRN PRN Reason: Nausea And Vomiting Prednisone (Deltasone) 10 mg PO DAILY [facility] Quetiapine Fumarate (Seroquel) 600 mg PO QHS [facility] Sodium Chloride (Sodium Chloride Flush Syringe 10 Ml) 10 ml IV BID [facility] Last Admin: 10/18/18 09:37 Dose: 10 ml Documented by: Sodium Chloride (Sodium Chloride Flush Syringe 10 Ml) 10 ml IV PRN PRN PRN Reason: LINE FLUSH Tiotropium [place] (Spiriva) 2 puff IH DAILY [facility] Trazodone HCl (Desyrel) 100 mg PO QHS PRN PRN Reason: Sleep Physical Examination Vital signs: Vital Signs Temp Pulse Resp BP Pulse Ox 97.8 F 110 H 23 123/82 95 10/17/18 23:54 10/17/18 23:54 10/17/18 23:54 10/17/18 23:54 10/17/18 23:54 Results - Laboratory Findings CBC and BMP: 10/18/18 03:30 10/18/18 03:30 Abnormal lab findings: Abnormal Labs 10/18/18 10/18/18 10/18/18 00:02 00:02 03:30 RDW 15.6 H 15.5 H [place] % (Auto) 15.0 H Eos % (Auto) 6.1 H [place] # 1.5 H Eos # 0.6 H Seg Neuts % (Manual) 81.0 H Lymphocytes % (Manual) 10.0 L Seg Neutrophils # Man 7.9 H Lymphocytes # (Manual) 1.0 L BUN 6 L Creatinine 0.6 L Glucose 103 H Total Creatine Kinase 10/18/18 10/18/18 03:30 07:27 RDW [place] % (Auto) Eos % (Auto) [place] # Eos # Seg Neuts % (Manual) Lymphocytes % (Manual) Seg Neutrophils # Man Lymphocytes # (Manual) BUN 7 L Creatinine 0.7 L Glucose 143 H Total Creatine Kinase < 7 L
[2018-10-18] MEDS ORDERED: DELTASONE PO SCH (13:00)
[2018-10-18] MEDS ORDERED: SPIRIVA IH SCH (13:00)
[2018-10-18] MEDS: BROVANA NEBU IH SCH ×2 (14:08→21:00)
[2018-10-18 14:18] LABS: Creatine Kinase MB 2.1 ng/mL (0.0-4.0)
[2018-10-18] MEDS ORDERED: ATROVENT IH SCH (16:00)
--- NOTE | 2018-10-18 19:36 | Consultation ---
PULMONARY CRITICAL CARE CONSULT NOTE CONSULTING PHYSICIAN: Dr. Bangura. REASON FOR CONSULTATION: Asthma exacerbation. CHIEF COMPLAINT AND HISTORY OF PRESENT ILLNESS: The patient is a 63-year-old -[place] male with past medical history significant according to him for a diagnosis of emphysema, but also of sarcoidosis that was made many years ago after a bronchoscopy. He came into the hospital complaining of shortness of breath and wheezing, increasing dyspnea on exertion. It had been increasing over the past 2-3 days. According to him, he had been on a recent taper of systemic steroids and as has happened in the past, once he stopped taking the systemic steroids, he is wheezing and dyspnea came back. In the ER, he was found to be hypoxemic, O2 sats about 84% on room air. He had apparently been treated with a 2-week course of prednisone prior. This was prescribed at the [facility]. He was admitted with a diagnosis of asthma/COPD exacerbation and we are asked to assist with management. When I stopped by to see him, he was sitting in bed. He was feeling a little bit better. His breathing was still a little bit mildly labored I would say. He denied any fevers or chills. He had a cough that is mostly nonproductive. He denied any hemoptysis. He admits to being around a young child at home who had flu-like symptoms. He denied nausea, vomiting, or overt aspiration. He states he had been compliant with his medications. The only thing that really changed was his running out of systemic steroids. This is as much of the history of presentation as I have. PAST MEDICAL HISTORY: 1. History of COPD. 2. History of sarcoidosis 3. History of bipolar disorder. PAST SURGICAL HISTORY: He has had left knee surgery and has had a tonsillectomy in the past. MEDICATIONS: He was on at the time I stopped by to see him were reviewed. Pertinent medications include the followin. Tylenol 650 mg p.o. q. 4 hours p.r.n. mild pain/fevers. 2. Albuterol treatments nebulized 2.5 mg q. 6 hours p.r.n. shortness of breath. 3. DuoNeb treatments as scheduled q. 6 hours. 4. Brovana 15 mcg inhaled q. 12 hours. 5. Pulmicort 0.5 mg nebulized q. 12 hours. 6. Vitamin D3 2000 units p.o. daily. 7. Depakote 1 gram p.o. daily. 8. Lovenox 40 mg subcutaneous daily. 9. Solu-Medrol 125 mg IV q. 6 hours. 10. Singulair 10 mg p.o. daily. 11. Zofran 4 mg IV q. 8 hours p.r.n. nausea and vomiting. 12. Prednisone 10 mg p.o. daily. 13. Seroquel 600 mg p.o. at bedtime. 14. Spiriva 2 puffs inhaled daily was scheduled. 15. Desyrel 100 mg, that is, trazodone 100 mg p.o. at bedtime p.r.n. insomnia. ALLERGIES: No known drug allergies. DIET: Well-built gentleman. Denies acute weight loss or gain preceding few weeks to months. FAMILY AND SOCIAL HISTORY: Lives in the community. He does have a 10+ pack year tobacco smoking history, but states he quit smoking many years ago. FAMILY HISTORY: Otherwise noncontributory. REVIEW OF SYSTEMS: No loss of consciousness. No new onset seizures. No new onset focal weakness. No gross hematochezia or melena. No gross hematuria or dysuria. He denies any new onset leg pain or swelling. He denies any hemoptysis. He denies any new onset focal weakness. Denies heat or cold intolerance. Denies polydipsia or polyuria. Denies acute chest pain. Denies palpitations. Complete 13-system review of systems obtained. Pertinent positives and/or negatives as in body of history above, otherwise they are noncontributory. PHYSICAL EXAMINATION: VITAL SIGNS: At presentation, he was afebrile, temperature 97.8 degrees Fahrenheit, pulse of 110, respiratory rate of 23 and blood pressure 123/82, oxygen sats were 95%, inspired oxygen concentration at that time was not recorded. When I stopped by to see him, O2 sats were 97% that was on 2 liters nasal cannula. GENERAL: He is a well-built -[place] male, middle aged looking. HEENT: Normocephalic, atraumatic, talking to me with mildly increased respiratory effort at rest. HEAD, EYES, EARS, NOSE AND THROAT: He is anicteric. No conjunctival erythema. Oropharynx is moist, it is a Mallampati #3 oropharynx. No gross jugular venous distention. Grossly, no palpable lymph nodes in the supraclavicular or submandibular lymph node chains. No thyromegaly. LUNGS: Auscultation of both lung hicks significant for diminished breath sounds, expiratory wheezing with a prolonged expiratory phase. HEART: Heart sounds 1 and 2 were heard. They were regular in rate and rhythm at the time of my evaluation, without rubs or murmurs. ABDOMEN: Soft. Bowel sounds are positive, nontender, no palpable hepatosplenomegaly. EXTREMITIES: Without overt digital clubbing, cyanosis, or pedal edema. NEUROLOGIC: Pupils are equal, round, about 4 mm, reactive to light. Extraocular muscles and movements are intact. He moves all 4 extremities spontaneously. The skin is of normal turgor without cellulitis or rash. LABORATORY DATA: From my review are as follows: White cell count 9800, hemoglobin 14.6, hematocrit 43.7, platelet count 217. No band forms reported. Serum sodium 140, potassium 4.3, chloride 102, bicarbonate 22, BUN 7, creatinine 0.7, glucose was 143. Cardiac enzymes within normal limits. No cultures. A chest x-ray was done. I have reviewed the chest x-ray as well as the radiologist's interpretation. I do agree no acute cardiopulmonary process; however, definite evidence of hyperinflation and COPD. I also reviewed the CT scan of the chest from earlier in the year and main finding is areas of bullous and paraseptal emphysema, mild really body involving mostly the upper lobes. I do not see any significant mediastinal adenopathy nor significant scarring or bronchiectasis or other interstitial-type lung disease. ASSESSMENT: 1. Acute chronic obstructive pulmonary disease exacerbation. 2. Acute hypoxemic respiratory failure. 3. History of sarcoidosis. 4. History of bipolar disorder. PLAN: I have discussed with him at length. I think what we are dealing with is p.r.n. simple chronic obstructive lung disease. I have explained to him that some people unfortunately are chronically steroid dependent and that may be where he is headed. For now, I agree with current treatment. I will begin to see his systemic steroid taper we will cut it down to 60 mg IV q. 8 hours. We will continue to wean oxygen to keep sats greater than or equal to about 90%. We will do a home oxygen evaluation at time for discharge. For a patient with severe COPD, I will put him on empiric community-acquired pneumonia therapy with Levaquin monotherapy for about 5 days of treatment, oral Levaquin should be appropriate. I will also put him on GI prophylaxis. Aspiration precautions will be maintained. We should continue long and short-acting bronchodilators as well as inhaled surgical steroids. I really have a low pretest clinical probability for venous thromboembolic disorder; however in this patient with severe COPD, I would have loved to have a D-dimer at admission. I will order one stat now and if it is elevated, I will consider a limited venous thromboembolic disorder workup. Flu and pneumonia vaccination will be addressed per protocol. Continued tobacco abstinence has been encouraged and I have discussed the overall care plan with him. Thank you very much for the consult, Dr. Bangura. We will follow along. We will make further recommendations as the picture progresses/becomes clearer. JOB# [id number] HAILEE/LEONIDES
[2018-10-18] MEDS: LEVAQUIN PO SCH (20:10)
[2018-10-18] MEDS: PEPCID PO SCH (20:11)
[2018-10-18] MEDS: PULMICORT IH SCH (21:00)
[2018-10-18] MEDS: DESYREL PO PRN (21:47)
[2018-10-19] MEDS: SODIUM CHLORIDE FLUSH SYRINGE 10 ML IV SCH ×4 (01:43→22:01)
[2018-10-19] MEDS: DUONEB *Not for PRN Use IH SCH ×4 (02:25→20:29)
[2018-10-19] MEDS: SOLU-Medrol IV SCH ×3 (04:00→22:00)
[2018-10-19] MEDS: BROVANA NEBU IH SCH ×2 (08:19→20:29)
[2018-10-19] MEDS: PULMICORT IH SCH ×2 (08:20→20:29)
--- NOTE | 2018-10-19 09:41 | Progress Note ---
Assessment and Plan Assessment and plan: 63-year-old man with a history of sarcoidosis, bipolar, asthma comes emergency room with complaints of shortness of breath that worsened yesterday. His symptoms are on relief with nebulizer treatments, has a cough productive of white phlegm. He is been on steroid taper which he has completed 3 days ago, symptoms began to worsen after completion of his steroids. He Complains of a cough productive of white phlegm, no fever or chills. Also complaining of chest pain, epigastric, feels like her something sitting on his chest, constant for 3 minutes, no radiation, and it identified thus relieving factors Asthma exacerbation COPD Exacerbation Acute on chronic Respiratory failure Chest pain Sarcoidosis Bipolar Plan Supportive Care Taper steroids Start high-dose IV steroids, nebulizer treatments, Pulmonary input noted. Check cardiac enzymes, stress test Home oxygen evaluation prior to discharge Continue outpatient medications, start DVT prophylaxis History Interval history: Patient is seen today for: Shortness of breath Seen and examined at bedside; 24hour events reviewed; nursing staff ; no adverse overnight events reported to me; Denies any chest pain, nausea, vomiting, diarrhea. Patient still with mild shortness of breath but improved compared to yesterday. He reports that he moved from [place] to [facility] a [facility] months ago and [facility]. No fever noted blood pressure controlled Hospitalist Physical - Physical exam Narrative exam: VITAL SIGNS: Reviewed. GENERAL: The patient appeared well nourished and normally developed. Vital signs as documented. HEAD: No signs of head trauma. EYES: Pupils are equal. Extraocular motions intact. EARS: Hearing grossly intact. MOUTH: Oropharynx is normal. NECK: No adenopathy, no JVD. CHEST: Chest with wheezing breath sounds bilaterally, expiratory more than respiratory. No rales, or rhonchi. CARDIAC: Regular rate and rhythm. S1 and S2, without murmurs, gallops, or rubs. VASCULAR: No Edema. Peripheral pulses normal and equal in all extremities. ABDOMEN: Soft, without detectable tenderness. No sign of distention. No rebound or guarding, and no masses palpated. Bowel Sounds normal. MUSCULOSKELETAL: Good range of motion of all major joints. Extremities without clubbing, cyanosis or edema. NEUROLOGIC EXAM: Alert and oriented x 3. No focal sensory or strength deficits. Speech normal. Follows commands. PSYCHIATRIC: Mood normal. SKIN: No rash or lesions. - Constitutional Vitals: Temp Pulse Resp BP Pulse Ox 97.3 F L 111 H 18 106/71 95 10/19/18 05:19 10/19/18 08:15 10/19/18 08:15 10/19/18 05:19 10/19/18 08:49 Results - Labs CBC & Chem 7: 10/18/18 03:30 10/18/18 03:30 Labs: Laboratory Last Values WBC 9.8 K/mm3 (4.5-11.0) 10/18/18 03:30 RBC 4.66 M/mm3 (3.65-5.03) 10/18/18 03:30 Hgb 14.6 gm/dl (11.8-15.2) 10/18/18 03:30 Hct 43.7 % (35.5-45.6) 10/18/18 03:30 MCV 94 fl (84-94) 10/18/18 03:30 MCH 31 pg (28-32) 10/18/18 03:30 MCHC 33 % (32-34) 10/18/18 03:30 RDW 15.5 % (13.2-15.2) H 10/18/18 03:30 Plt Count 217 K/mm3 (140-440) 10/18/18 03:30 Lymph % (Auto) 34.0 % (13.4-35.0) 10/18/18 00:02 [place] % (Auto) 15.0 % (0.0-7.3) H 10/18/18 00:02 Eos % (Auto) 6.1 % (0.0-4.3) H 10/18/18 00:02 Baso % (Auto) 0.6 % (0.0-1.8) 10/18/18 00:02 Lymph # 3.3 K/mm3 (1.2-5.4) 10/18/18 00:02 [place] # 1.5 K/mm3 (0.0-0.8) H 10/18/18 00:02 Eos # 0.6 K/mm3 (0.0-0.4) H 10/18/18 00:02 Baso # 0.1 K/mm3 (0.0-0.1) 10/18/18 00:02 Add Manual Diff Complete 10/18/18 03:30 Total Counted 100 10/18/18 03:30 Seg Neutrophils % Social Work Specialist 10/18/18 03:30 Seg Neuts % (Manual) 81.0 % (40.0-70.0) H 10/18/18 03:30 Band Neutrophils % 8.0 % 10/18/18 03:30 Lymphocytes % (Manual) 10.0 % (13.4-35.0) L 10/18/18 03:30 Reactive Lymphs % (Man) 0 % 10/18/18 03:30 Monocytes % (Manual) 1.0 % (0.0-7.3) 10/18/18 03:30 Eosinophils % (Manual) 0 % (0.0-4.3) 10/18/18 03:30 Basophils % (Manual) 0 % (0.0-1.8) 10/18/18 03:30 Metamyelocytes % 0 % 10/18/18 03:30 Myelocytes % 0 % 10/18/18 03:30 Promyelocytes % 0 % 10/18/18 03:30 Blast Cells % 0 % 10/18/18 03:30 Nucleated RBC % Not Reportable 10/18/18 03:30 Seg Neutrophils # 4.3 K/mm3 (1.8-7.7) 10/18/18 00:02 Seg Neutrophils # Man 7.9 K/mm3 (1.8-7.7) H 10/18/18 03:30 Band Neutrophils # 0.8 K/mm3 10/18/18 03:30 Lymphocytes # (Manual) 1.0 K/mm3 (1.2-5.4) L 10/18/18 03:30 Abs React Lymphs (Man) 0.0 K/mm3 10/18/18 03:30 Monocytes # (Manual) 0.1 K/mm3 (0.0-0.8) 10/18/18 03:30 Eosinophils # (Manual) 0.0 K/mm3 (0.0-0.4) 10/18/18 03:30 Basophils # (Manual) 0.0 K/mm3 (0.0-0.1) 10/18/18 03:30 Metamyelocytes # 0.0 K/mm3 10/18/18 03:30 Myelocytes # 0.0 K/mm3 10/18/18 03:30 Promyelocytes # 0.0 K/mm3 10/18/18 03:30 Blast Cells # 0.0 K/mm3 10/18/18 03:30 WBC Morphology Not Reportable 10/18/18 03:30 Hypersegmented Neuts Not Reportable 10/18/18 03:30 Hyposegmented Neuts Not Reportable 10/18/18 03:30 Hypogranular Neuts Not Reportable 10/18/18 03:30 Smudge Cells Not Reportable 10/18/18 03:30 Toxic Granulation Not Reportable 10/18/18 03:30 Toxic Vacuolation Not Reportable 10/18/18 03:30 Dohle Bodies Not Reportable 10/18/18 03:30 Pelger-Huet Anomaly Not Reportable 10/18/18 03:30 Lucy Rods Not Reportable 10/18/18 03:30 Platelet Estimate Consistent w auto 10/18/18 03:30 Clumped Platelets Not Reportable 10/18/18 03:30 Plt Clumps, EDTA Not Reportable 10/18/18 03:30 Large Platelets Not Reportable 10/18/18 03:30 Giant Platelets Not Reportable 10/18/18 03:30 Platelet Satelliting Not Reportable 10/18/18 03:30 Plt Morphology Comment Not Reportable 10/18/18 03:30 RBC Morphology Not Reportable 10/18/18 03:30 Dimorphic RBCs Not Reportable 10/18/18 03:30 Polychromasia Not Reportable 10/18/18 03:30 Hypochromasia Not Reportable 10/18/18 03:30 Poikilocytosis Not Reportable 10/18/18 03:30 Anisocytosis 1+ 10/18/18 03:30 Microcytosis Not Reportable 10/18/18 03:30 Macrocytosis Not Reportable 10/18/18 03:30 Spherocytes Not Reportable 10/18/18 03:30 Pappenheimer Bodies Not Reportable 10/18/18 03:30 Sickle Cells Not Reportable 10/18/18 03:30 Target Cells Not Reportable 10/18/18 03:30 Tear Drop Cells Not Reportable 10/18/18 03:30 Ovalocytes Not Reportable 10/18/18 03:30 Helmet Cells Not Reportable 10/18/18 03:30 [place] Bodies Not Reportable 10/18/18 03:30 [place] Rings Not Reportable 10/18/18 03:30 [place] Cells Not Reportable 10/18/18 03:30 Bite Cells Not Reportable 10/18/18 03:30 Crenated Cell Not Reportable 10/18/18 03:30 Elliptocytes Few 10/18/18 03:30 Acanthocytes (Spur) Not Reportable 10/18/18 03:30 Rouleaux Not Reportable 10/18/18 03:30 Hemoglobin C Crystals Not Reportable 10/18/18 03:30 Schistocytes Not Reportable 10/18/18 03:30 Malaria parasites Not Reportable 10/18/18 03:30 Christopher Bodies Not Reportable 10/18/18 03:30 Hem Pathologist Commnt No 10/18/18 03:30 D-Dimer 193.13 ng/mlDDU (0-234) 10/18/18 19:46 Sodium 140 mmol/L (137-145) 10/18/18 03:30 Potassium 4.3 mmol/L (3.6-5.0) 10/18/18 03:30 Chloride 101.5 mmol/L (98-107) 10/18/18 03:30 Carbon Dioxide 22 mmol/L (22-30) 10/18/18 03:30 Anion Gap 21 mmol/L 10/18/18 03:30 BUN 7 mg/dL (9-20) L 10/18/18 03:30 Creatinine 0.7 mg/dL (0.8-1.5) L 10/18/18 03:30 Estimated GFR > 60 ml/min 10/18/18 03:30 BUN/Creatinine Ratio 10 % 10/18/18 03:30 Glucose 143 mg/dL (75-100) H 10/18/18 03:30 Calcium 9.5 mg/dL (8.4-10.2) 10/18/18 03:30 Total Creatine Kinase 122 units/L (55-170) 10/18/18 13:02 CK-MB (CK-2) 2.1 ng/mL (0.0-4.0) 10/18/18 13:02 CK-MB (CK-2) Rel Index 1.7 (0-4) 10/18/18 13:02 Troponin T < 0.010 ng/mL (0.00-0.029) 10/18/18 13:02
[2018-10-19] MEDS: LOVENOX SUB-Q SCH (10:22)
[2018-10-19] MEDS: SINGULAIR PO SCH (10:23)
[2018-10-19] MEDS: VITAMIN D3 PO SCH (10:23)
[2018-10-19] MEDS: PEPCID PO SCH (10:23)
--- NOTE | 2018-10-19 19:08 | Progress Note ---
Assessment and Plan Patient alert awake. Patient still has wheezing and cough.Patient not using O2 as recommended.O2 saturation 95% on room air. - Patient Problems (1) Acute hypoxemic respiratory failure Current Visit: No Status: Acute Plan to address problem: O2 2 litres via nasal canula. Brovanna/budesonide aerosol treatments q 12 hours. Albuterol/atrovent aerosol treatments q 6 hours prn for shortness of breath. Increase I/ V solumedral 100 mg q 8 hours. Continue S/C Lovenox. Continue famotidine. Continue Levaquin. (2) Pulmonary nodule, right Current Visit: No Status: Acute Plan to address problem: Obtaining CAT scan of chest. (3) Sarcoidosis Current Visit: No Status: Acute Plan to address problem: Obtaining BRIT level. (4) Bipolar disorder Current Visit: No Status: Chronic Qualifiers: Current bipolar episode type: hypomanic Plan to address problem: Management as per primary care and psychiatry. (5) COPD exacerbation Current Visit: No Status: Acute Plan to address problem: O2 2 litres via nasal canula. Brovanna/budesonide aerosol treatments q 12 hours. Albuterol/atrovent aerosol treatments q 6 hours prn for shortness of breath. Increase I/ V solumedral 100 mg q 8 hours. Continue S/C Lovenox. Continue famotidine. Continue Levaquin. Subjective Date of service: 10/19/18 Interval history: Patient alert awake. Patient still has wheezing and cough.Patient not using O2 as recommended.O2 saturation 95% on room air. Objective Vital Signs - 12hr 10/19/18 10/19/18 10/19/18 08:05 08:15 08:49 Temperature Pulse Rate Pulse Rate [ 102 H 111 H Bilateral Throughout] Respiratory Rate Respiratory 18 18 Rate [Bilateral Throughout] Blood Pressure O2 Sat by Pulse 95 Oximetry 10/19/18 10/19/18 10/19/18 12:17 15:00 15:10 Temperature 97.5 F L Pulse Rate Pulse Rate [ 111 H 78 Bilateral Throughout] Respiratory 20 Rate Respiratory 18 18 Rate [Bilateral Throughout] Blood Pressure 109/68 O2 Sat by Pulse Oximetry 10/19/18 17:04 Temperature 98.4 F Pulse Rate 105 H Pulse Rate [ Bilateral Throughout] Respiratory 20 Rate Respiratory Rate [Bilateral Throughout] Blood Pressure 110/66 O2 Sat by Pulse 94 Oximetry Constitutional: no acute distress, alert Eyes: non-icteric ENT: oropharynx moist Neck: supple, no lymphadenopathy Ascultation: Bilateral: wheezes, rhonchi Cardiovascular: regular rate and rhythm Gastrointestinal: normoactive bowel sounds, soft, non-tender Integumentary: normal Extremities: no cyanosis, no edema Neurologic: non-focal exam, pupils equal and round, CN II-XII normal Psychiatric: depressed CBC and BMP: 10/18/18 03:30 10/18/18 03:30 ABG, PT/INR, D-dimer: PT/INR, D-dimer D-Dimer 193.13 ng/mlDDU (0-234) 10/18/18 19:46 Abnormal lab findings: Abnormal Labs 10/18/18 10/18/18 10/18/18 00:02 00:02 03:30 RDW 15.6 H 15.5 H [place] % (Auto) 15.0 H Eos % (Auto) 6.1 H [place] # 1.5 H Eos # 0.6 H Seg Neuts % (Manual) 81.0 H Lymphocytes % (Manual) 10.0 L Seg Neutrophils # Man 7.9 H Lymphocytes # (Manual) 1.0 L BUN 6 L Creatinine 0.6 L Glucose 103 H Total Creatine Kinase 10/18/18 10/18/18 03:30 07:27 RDW [place] % (Auto) Eos % (Auto) [place] # Eos # Seg Neuts % (Manual) Lymphocytes % (Manual) Seg Neutrophils # Man Lymphocytes # (Manual) BUN 7 L Creatinine 0.7 L Glucose 143 H Total Creatine Kinase < 7 L Chest x-ray: report reviewed (Reported no acute cardiopulmonary process.), image reviewed
[2018-10-19] MEDS: LEVAQUIN PO SCH (22:01)
[2018-10-19] MEDS: DESYREL PO PRN (22:01)
[2018-10-20] MEDS: DUONEB *Not for PRN Use IH SCH ×4 (02:12→20:00)
[2018-10-20] MEDS: SOLU-Medrol IV SCH ×3 (05:22→21:58)
[2018-10-20] MEDS: BROVANA NEBU IH SCH ×2 (09:08→20:00)
[2018-10-20] MEDS: PULMICORT IH SCH ×2 (09:08→20:00)
[2018-10-20] MEDS ORDERED: NACL 0.9% 500 ML ONE (10:19)
--- NOTE | 2018-10-20 11:02 | Progress Note ---
Assessment and Plan Assessment and plan: 63-year-old man with a history of sarcoidosis, bipolar, asthma comes emergency room with complaints of shortness of breath that worsened yesterday. His symptoms are on relief with nebulizer treatments, has a cough productive of white phlegm. He is been on steroid taper which he has completed 3 days ago, symptoms began to worsen after completion of his steroids. He Complains of a cough productive of white phlegm, no fever or chills. Also complaining of chest pain, epigastric, feels like her something sitting on his chest, constant for 3 minutes, no radiation, and it identified thus relieving factors Asthma exacerbation COPD Exacerbation Acute on chronic Respiratory failure Chest pain Sarcoidosis Bipolar Plan Supportive Care Taper steroids PER PULMONARY Nebulizer treatments, Pulmonary input noted. Home oxygen evaluation prior to discharge Continue outpatient medications, DVT prophylaxis History Interval history: Patient is seen today for: Shortness of breath Seen and examined at bedside; 24hour events reviewed; nursing staff ; no adverse overnight events reported to me; Denies any chest pain, nausea, vomiting, diarrhea. Patient still with mild shortness of breath but improved compared to yesterday. No fever noted blood pressure controlled Hospitalist Physical - Physical exam Narrative exam: VITAL SIGNS: Reviewed. GENERAL: The patient appeared well nourished and normally developed. Vital signs as documented. HEAD: No signs of head trauma. EYES: Pupils are equal. Extraocular motions intact. EARS: Hearing grossly intact. MOUTH: Oropharynx is normal. NECK: No adenopathy, no JVD. CHEST: Chest with wheezing breath sounds bilaterally, expiratory more than respiratory. No rales, or rhonchi. CARDIAC: Regular rate and rhythm. S1 and S2, without murmurs, gallops, or rubs. VASCULAR: No Edema. Peripheral pulses normal and equal in all extremities. ABDOMEN: Soft, without detectable tenderness. No sign of distention. No rebound or guarding, and no masses palpated. Bowel Sounds normal. MUSCULOSKELETAL: Good range of motion of all major joints. Extremities without clubbing, cyanosis or edema. NEUROLOGIC EXAM: Alert and oriented x 3. No focal sensory or strength deficits. Speech normal. Follows commands. PSYCHIATRIC: Mood normal. SKIN: No rash or lesions. - Constitutional Vitals: Temp Pulse Resp BP Pulse Ox 98.0 F 80 18 117/71 95 10/20/18 06:05 10/20/18 09:20 10/20/18 09:20 10/20/18 06:05 10/20/18 09:08 Results - Labs CBC & Chem 7: 10/18/18 03:30 10/18/18 03:30 Labs: Laboratory Last Values WBC 9.8 K/mm3 (4.5-11.0) 10/18/18 03:30 RBC 4.66 M/mm3 (3.65-5.03) 10/18/18 03:30 Hgb 14.6 gm/dl (11.8-15.2) 10/18/18 03:30 Hct 43.7 % (35.5-45.6) 10/18/18 03:30 MCV 94 fl (84-94) 10/18/18 03:30 MCH 31 pg (28-32) 10/18/18 03:30 MCHC 33 % (32-34) 10/18/18 03:30 RDW 15.5 % (13.2-15.2) H 10/18/18 03:30 Plt Count 217 K/mm3 (140-440) 10/18/18 03:30 Lymph % (Auto) 34.0 % (13.4-35.0) 10/18/18 00:02 [place] % (Auto) 15.0 % (0.0-7.3) H 10/18/18 00:02 Eos % (Auto) 6.1 % (0.0-4.3) H 10/18/18 00:02 Baso % (Auto) 0.6 % (0.0-1.8) 10/18/18 00:02 Lymph # 3.3 K/mm3 (1.2-5.4) 10/18/18 00:02 [place] # 1.5 K/mm3 (0.0-0.8) H 10/18/18 00:02 Eos # 0.6 K/mm3 (0.0-0.4) H 10/18/18 00:02 Baso # 0.1 K/mm3 (0.0-0.1) 10/18/18 00:02 Add Manual Diff Complete 10/18/18 03:30 Total Counted 100 10/18/18 03:30 Seg Neutrophils % Retail Solar Advisor 10/18/18 03:30 Seg Neuts % (Manual) 81.0 % (40.0-70.0) H 10/18/18 03:30 Band Neutrophils % 8.0 % 10/18/18 03:30 Lymphocytes % (Manual) 10.0 % (13.4-35.0) L 10/18/18 03:30 Reactive Lymphs % (Man) 0 % 10/18/18 03:30 Monocytes % (Manual) 1.0 % (0.0-7.3) 10/18/18 03:30 Eosinophils % (Manual) 0 % (0.0-4.3) 10/18/18 03:30 Basophils % (Manual) 0 % (0.0-1.8) 10/18/18 03:30 Metamyelocytes % 0 % 10/18/18 03:30 Myelocytes % 0 % 10/18/18 03:30 Promyelocytes % 0 % 10/18/18 03:30 Blast Cells % 0 % 10/18/18 03:30 Nucleated RBC % Not Reportable 10/18/18 03:30 Seg Neutrophils # 4.3 K/mm3 (1.8-7.7) 10/18/18 00:02 Seg Neutrophils # Man 7.9 K/mm3 (1.8-7.7) H 10/18/18 03:30 Band Neutrophils # 0.8 K/mm3 10/18/18 03:30 Lymphocytes # (Manual) 1.0 K/mm3 (1.2-5.4) L 10/18/18 03:30 Abs React Lymphs (Man) 0.0 K/mm3 10/18/18 03:30 Monocytes # (Manual) 0.1 K/mm3 (0.0-0.8) 10/18/18 03:30 Eosinophils # (Manual) 0.0 K/mm3 (0.0-0.4) 10/18/18 03:30 Basophils # (Manual) 0.0 K/mm3 (0.0-0.1) 10/18/18 03:30 Metamyelocytes # 0.0 K/mm3 10/18/18 03:30 Myelocytes # 0.0 K/mm3 10/18/18 03:30 Promyelocytes # 0.0 K/mm3 10/18/18 03:30 Blast Cells # 0.0 K/mm3 10/18/18 03:30 WBC Morphology Not Reportable 10/18/18 03:30 Hypersegmented Neuts Not Reportable 10/18/18 03:30 Hyposegmented Neuts Not Reportable 10/18/18 03:30 Hypogranular Neuts Not Reportable 10/18/18 03:30 Smudge Cells Not Reportable 10/18/18 03:30 Toxic Granulation Not Reportable 10/18/18 03:30 Toxic Vacuolation Not Reportable 10/18/18 03:30 Dohle Bodies Not Reportable 10/18/18 03:30 Pelger-Huet Anomaly Not Reportable 10/18/18 03:30 Lucy Rods Not Reportable 10/18/18 03:30 Platelet Estimate Consistent w auto 10/18/18 03:30 Clumped Platelets Not Reportable 10/18/18 03:30 Plt Clumps, EDTA Not Reportable 10/18/18 03:30 Large Platelets Not Reportable 10/18/18 03:30 Giant Platelets Not Reportable 10/18/18 03:30 Platelet Satelliting Not Reportable 10/18/18 03:30 Plt Morphology Comment Not Reportable 10/18/18 03:30 RBC Morphology Not Reportable 10/18/18 03:30 Dimorphic RBCs Not Reportable 10/18/18 03:30 Polychromasia Not Reportable 10/18/18 03:30 Hypochromasia Not Reportable 10/18/18 03:30 Poikilocytosis Not Reportable 10/18/18 03:30 Anisocytosis 1+ 10/18/18 03:30 Microcytosis Not Reportable 10/18/18 03:30 Macrocytosis Not Reportable 10/18/18 03:30 Spherocytes Not Reportable 10/18/18 03:30 Pappenheimer Bodies Not Reportable 10/18/18 03:30 Sickle Cells Not Reportable 10/18/18 03:30 Target Cells Not Reportable 10/18/18 03:30 Tear Drop Cells Not Reportable 10/18/18 03:30 Ovalocytes Not Reportable 10/18/18 03:30 Helmet Cells Not Reportable 10/18/18 03:30 [place] Bodies Not Reportable 10/18/18 03:30 [place] Rings Not Reportable 10/18/18 03:30 [place] Cells Not Reportable 10/18/18 03:30 Bite Cells Not Reportable 10/18/18 03:30 Crenated Cell Not Reportable 10/18/18 03:30 Elliptocytes Few 10/18/18 03:30 Acanthocytes (Spur) Not Reportable 10/18/18 03:30 Rouleaux Not Reportable 10/18/18 03:30 Hemoglobin C Crystals Not Reportable 10/18/18 03:30 Schistocytes Not Reportable 10/18/18 03:30 Malaria parasites Not Reportable 10/18/18 03:30 Christopher Bodies Not Reportable 10/18/18 03:30 Hem Pathologist Commnt No 10/18/18 03:30 D-Dimer 193.13 ng/mlDDU (0-234) 10/18/18 19:46 Sodium 140 mmol/L (137-145) 10/18/18 03:30 Potassium 4.3 mmol/L (3.6-5.0) 10/18/18 03:30 Chloride 101.5 mmol/L (98-107) 10/18/18 03:30 Carbon Dioxide 22 mmol/L (22-30) 10/18/18 03:30 Anion Gap 21 mmol/L 10/18/18 03:30 BUN 7 mg/dL (9-20) L 10/18/18 03:30 Creatinine 0.7 mg/dL (0.8-1.5) L 10/18/18 03:30 Estimated GFR > 60 ml/min 10/18/18 03:30 BUN/Creatinine Ratio 10 % 10/18/18 03:30 Glucose 143 mg/dL (75-100) H 10/18/18 03:30 Calcium 9.5 mg/dL (8.4-10.2) 10/18/18 03:30 Total Creatine Kinase 122 units/L (55-170) 10/18/18 13:02 CK-MB (CK-2) 2.1 ng/mL (0.0-4.0) 10/18/18 13:02 CK-MB (CK-2) Rel Index 1.7 (0-4) 10/18/18 13:02 Troponin T < 0.010 ng/mL (0.00-0.029) 10/18/18 13:02
[2018-10-20] MEDS: LOVENOX SUB-Q SCH (11:41)
[2018-10-20] MEDS: VITAMIN D3 PO SCH (11:42)
[2018-10-20] MEDS: PEPCID PO SCH (11:43)
[2018-10-20] MEDS: SINGULAIR PO SCH (11:44)
[2018-10-20] MEDS: SODIUM CHLORIDE FLUSH SYRINGE 10 ML IV SCH ×2 (11:44→21:59)
--- NOTE | 2018-10-20 12:03 | Cat Scan Report ---
FINAL REPORT EXAM: CT CHEST W CON HISTORY: question of right pulmonary nodule. TECHNIQUE: CT examination of the chest after IV contrast PRIORS: chest CT 10/15/2017 FINDINGS: Normal cardiac size without pericardial effusion. Intact normal caliber thoracic aorta. Normal-appear ing esophagus. No hilar mass or mediastinal adenopathy. Visualized pulmonary arteries are diffusely p atent. Degenerative change in the regional skeleton. No acute fracture. No pneumothorax or pleural effusion. Relatively unchanged thick linear scar in right lower lobe posteriorly. Similar finding is much less prominent in the left lower lobe posteriorly medially. New slight linear scar versus atelectasis right middle lobe adjacent to the diaphragm No evidence of lung nodule or mass. IMPRESSION: No definite CT evidence of lung nodule or mass New slight linear scar versus atelectasis right middle lobe Relatively unchanged thick linear scar in right lower lobe and less prominent thin linear scar in lef t lower lobe
--- NOTE | 2018-10-20 14:18 | Progress Note ---
Assessment and Plan Patient alert awake. Patient still has wheezing and cough.Patient not using O2 as recommended.O2 saturation 95% on room air.Increased solumedral to 100mg I/V q 8 hours. - Patient Problems (1) Acute hypoxemic respiratory failure Current Visit: No Status: Acute Plan to address problem: O2 2 litres via nasal canula. Brovanna/budesonide aerosol treatments q 12 hours. Albuterol/atrovent aerosol treatments q 6 hours prn for shortness of breath. Increase I/ V solumedral 100 mg q 8 hours. Continue S/C Lovenox. Continue famotidine. Continue Levaquin. (2) Pulmonary nodule, right Current Visit: No Status: Acute Plan to address problem: CT of chest done 10/20/[address] evidence of lung nodule or mass New slight linear scar versus atelectasis right middle lobe Relatively unchanged thick linear scar in right lower lobe and less prominent thin linear scar in left lower lobe (3) Sarcoidosis Current Visit: No Status: Acute Plan to address problem: Obtaining BRIT level. (4) Bipolar disorder Current Visit: No Status: Chronic Qualifiers: Current bipolar episode type: hypomanic Plan to address problem: Management as per primary care and psychiatry. (5) COPD exacerbation Current Visit: No Status: Acute Plan to address problem: O2 2 litres via nasal canula. Brovanna/budesonide aerosol treatments q 12 hours. Albuterol/atrovent aerosol treatments q 6 hours prn for shortness of breath. Increase I/ V solumedral 100 mg q 8 hours. Continue S/C Lovenox. Continue famotidine. Continue Levaquin. Subjective Date of service: 10/20/18 Interval history: Patient alert awake. Patient still has wheezing and cough.Patient not using O2 as recommended.O2 saturation 95% on room air.Increased solumedral to 100mg I/V q 8 hours. Objective Vital Signs - 12hr 10/20/18 10/20/18 10/20/18 06:05 09:08 09:09 Temperature 98.0 F Pulse Rate 90 Pulse Rate [ 81 Bilateral Throughout] Respiratory 18 Rate Respiratory 18 Rate [Bilateral Throughout] Blood Pressure 117/71 O2 Sat by Pulse 93 95 Oximetry 10/20/18 10/20/18 09:20 14:04 Temperature Pulse Rate Pulse Rate [ 80 93 H Bilateral Throughout] Respiratory Rate Respiratory 18 18 Rate [Bilateral Throughout] Blood Pressure O2 Sat by Pulse Oximetry Constitutional: no acute distress, alert Eyes: non-icteric ENT: oropharynx moist Neck: supple, no lymphadenopathy Ascultation: Bilateral: wheezes, rhonchi Cardiovascular: regular rate and rhythm Gastrointestinal: normoactive bowel sounds, soft, non-tender Integumentary: normal Extremities: no cyanosis, no edema Neurologic: non-focal exam, pupils equal and round, CN II-XII normal Psychiatric: depressed CBC and BMP: 10/18/18 03:30 10/18/18 03:30 ABG, PT/INR, D-dimer: PT/INR, D-dimer D-Dimer 193.13 ng/mlDDU (0-234) 10/18/18 19:46 Abnormal lab findings: Abnormal Labs 10/18/18 10/18/18 10/18/18 00:02 00:02 03:30 RDW 15.6 H 15.5 H [place] % (Auto) 15.0 H Eos % (Auto) 6.1 H [place] # 1.5 H Eos # 0.6 H Seg Neuts % (Manual) 81.0 H Lymphocytes % (Manual) 10.0 L Seg Neutrophils # Man 7.9 H Lymphocytes # (Manual) 1.0 L BUN 6 L Creatinine 0.6 L Glucose 103 H Total Creatine Kinase 10/18/18 10/18/18 03:30 07:27 RDW [place] % (Auto) Eos % (Auto) [place] # Eos # Seg Neuts % (Manual) Lymphocytes % (Manual) Seg Neutrophils # Man Lymphocytes # (Manual) BUN 7 L Creatinine 0.7 L Glucose 143 H Total Creatine Kinase < 7 L
[2018-10-20] MEDS: LEVAQUIN PO SCH (21:58)
[2018-10-20] MEDS: DESYREL PO PRN (21:58)
[2018-10-21] MEDS: DUONEB *Not for PRN Use IH SCH ×2 (01:56→11:04)
[2018-10-21] MEDS: SOLU-Medrol IV SCH (05:56)
[2018-10-21] MEDS: SINGULAIR PO SCH (09:37)
[2018-10-21] MEDS: VITAMIN D3 PO SCH (09:37)
[2018-10-21] MEDS: PEPCID PO SCH (09:37)
[2018-10-21] MEDS: LOVENOX SUB-Q SCH (09:37)
--- NOTE | 2018-10-21 09:37 | Progress Note ---
Assessment and Plan Patient alert awake. Patient still has wheezing and cough.Patient not using O2 as recommended.O2 saturation 96% on room air.Increased solumedral to 100mg I/V q 6 hours. - Patient Problems (1) Acute hypoxemic respiratory failure Current Visit: No Status: Acute Plan to address problem: O2 2 litres via nasal canula. Brovanna/budesonide aerosol treatments q 12 hours. Albuterol/atrovent aerosol treatments q 6 hours prn for shortness of breath. Increase I/ V solumedral 100 mg q 6 hours. Continue S/C Lovenox. Continue famotidine. Continue Levaquin. (2) Pulmonary nodule, right Current Visit: No Status: Acute Plan to address problem: CT of chest done 10/20/[address] evidence of lung nodule or mass New slight linear scar versus atelectasis right middle lobe Relatively unchanged thick linear scar in right lower lobe and less prominent thin linear scar in left lower lobe (3) Sarcoidosis Current Visit: No Status: Acute Plan to address problem: BRIT level results still pending. (4) Bipolar disorder Current Visit: No Status: Chronic Qualifiers: Current bipolar episode type: hypomanic Plan to address problem: Management as per primary care and psychiatry. (5) COPD exacerbation Current Visit: No Status: Acute Plan to address problem: O2 2 litres via nasal canula. Brovanna/budesonide aerosol treatments q 12 hours. Albuterol/atrovent aerosol treatments q 6 hours prn for shortness of breath. Increase I/ V solumedral 100 mg q 6 hours. Continue S/C Lovenox. Continue famotidine. Continue Levaquin. Subjective Date of service: 10/21/18 Interval history: Patient alert awake. Patient still has wheezing and cough.Patient not using O2 as recommended.O2 saturation 96% on room air.Increased solumedral to 100mg I/V q 6 hours. Objective Vital Signs - 12hr 10/20/18 10/21/18 10/21/18 22:00 00:21 05:08 Temperature 97.1 F L 97.5 F L Pulse Rate 97 H 84 Respiratory 16 18 20 Rate Blood Pressure 113/71 138/75 O2 Sat by Pulse 95 96 Oximetry Constitutional: no acute distress, alert Eyes: non-icteric ENT: oropharynx moist Neck: supple, no lymphadenopathy Ascultation: Bilateral: wheezes, rhonchi Cardiovascular: regular rate and rhythm Gastrointestinal: normoactive bowel sounds, soft, non-tender Integumentary: normal Extremities: no cyanosis, no edema Neurologic: non-focal exam, pupils equal and round, CN II-XII normal Psychiatric: depressed CBC and BMP: 10/18/18 03:30 10/18/18 03:30 ABG, PT/INR, D-dimer: PT/INR, D-dimer D-Dimer 193.13 ng/mlDDU (0-234) 10/18/18 19:46 Abnormal lab findings: Abnormal Labs 10/18/18 10/18/18 10/18/18 00:02 00:02 03:30 RDW 15.6 H 15.5 H Grady % (Auto) 15.0 H Eos % (Auto) 6.1 H Grady # 1.5 H Eos # 0.6 H Seg Neuts % (Manual) 81.0 H Lymphocytes % (Manual) 10.0 L Seg Neutrophils # Man 7.9 H Lymphocytes # (Manual) 1.0 L BUN 6 L Creatinine 0.6 L Glucose 103 H Total Creatine Kinase 10/18/18 10/18/18 03:30 07:27 RDW Grady % (Auto) Eos % (Auto) Grady # Eos # Seg Neuts % (Manual) Lymphocytes % (Manual) Seg Neutrophils # Man Lymphocytes # (Manual) BUN 7 L Creatinine 0.7 L Glucose 143 H Total Creatine Kinase < 7 L
[2018-10-21] MEDS: SODIUM CHLORIDE FLUSH SYRINGE 10 ML IV SCH (09:38)
[2018-10-21] MEDS: PULMICORT IH SCH (11:03)
[2018-10-21] MEDS: BROVANA NEBU IH SCH (11:04)
[2018-10-21] MEDS ORDERED: SOLU-Medrol IV SCH (12:00)
--- NOTE | 2018-10-21 12:01 | Discharge Summary ---
Providers - Providers Date of Admission: 10/18/18 03:10 Attending physician: CHEMA LE MD 10/18/18 03:18 Consult to Physician [CONS] Routine Comment: Consulting Provider: CATALINA CALLAHAN Physician Instructions: Reason For Exam: asthma Primary care physician: MANAGER ROOFING Hospitalization Reason for admission: copd exacrbation Condition: Stable Hospital course: 63-year-old man with a history of sarcoidosis, bipolar, asthma comes emergency room with complaints of shortness of breath that worsened yesterday. His symptoms are on relief with nebulizer treatments, has a cough productive of white phlegm. He is been on steroid taper which he has completed 3 days ago, symptoms began to worsen after completion of his steroids. He Complains of a cough productive of white phlegm, no fever or chills. Also complaining of chest pain, epigastric, feels like her something sitting on his chest, constant for 3 minutes, no radiation, and it identified thus relieving factors. Pateint was treated with sterodis therapy with improvement while in house. He wants to have cardiac evaluation at the NH if needed and states that his chest pain resolved with improvement of his respiration. patient reports improvement in symtoms. Ambulating with baseline shortness of breath. No oxygen requirement on 6 mins walk. wants to be discharged to follow with his doctors at the NH Asthma exacerbation COPD Exacerbation Acute on chronic Respiratory failure Chest pain Sarcoidosis Bipolar Disposition: - TO HOME OR SELFCARE Time spent for discharge: 35 mins Core Measure Documentation - Palliative Care Palliative Care/ Comfort Measures: Not Applicable - Core Measures Any of the following diagnoses?: none Exam - Physical Exam Narrative exam: VITAL SIGNS: Reviewed. GENERAL: The patient appeared well nourished and normally developed. Vital signs as documented. HEAD: No signs of head trauma. EYES: Pupils are equal. Extraocular motions intact. EARS: Hearing grossly intact. MOUTH: Oropharynx is normal. NECK: No adenopathy, no JVD. CHEST: Chest with wheezing breath sounds bilaterally, expiratory more than respiratory. No rales, or rhonchi. CARDIAC: Regular rate and rhythm. S1 and S2, without murmurs, gallops, or rubs. VASCULAR: No Edema. Peripheral pulses normal and equal in all extremities. ABDOMEN: Soft, without detectable tenderness. No sign of distention. No rebound or guarding, and no masses palpated. Bowel Sounds normal. MUSCULOSKELETAL: Good range of motion of all major joints. Extremities without clubbing, cyanosis or edema. NEUROLOGIC EXAM: Alert and oriented x 3. No focal sensory or strength deficits. Speech normal. Follows commands. PSYCHIATRIC: Mood normal. SKIN: No rash or lesions. - Constitutional Vitals: Temp Pulse Resp BP Pulse Ox 97.5 F L 86 20 138/75 94 10/21/18 05:08 10/21/18 11:14 10/21/18 11:14 10/21/18 05:08 10/21/18 11:00 Plan Activity: advance as tolerated, fall precautions Diet: low salt Special Instructions: smoking cessation Additional Instructions: follow with pulmonary at the NH or with Dr Judge Follow up with: PRIMARY CAREMD [Primary Care Provider] - 7 Days CATALINA CALLAHAN MD [Staff Physician] - 7 Days Prescriptions: ALBUTEROL NEB's [Proventil 0.083% NEBS] 2.5 mg IH Q6HRT PRN #30 nebu PRN Reason: Shortness Of Breath Budesoni/Formotero 160-4.5(Nf) [Symbicort 160-4.5 (Nf)] 2 puff IH BID #1 unit Montelukast [Singulair] 10 mg PO DAILY #30 tablet Prednisone [predniSONE 10 mg (6-Day Pack, 21 Tabs)] 10 mg PO .TAPER #1 tab.ds.pk
[2018-10-21 13:16] VITALS: BP 118/69
== END 2018-10-21 13:54 | disposition home or self-care (01) | DRG 189 ==
LOC: ED 23:41 → 3A 10-18 03:10
PROVIDERS: ADMIT Internal Medicine; ATTEND Internal Medicine
PROC: 4A033R1 Measurement of Arterial Saturation, Peripheral, Percutaneous Approach (ICD-10-PCS; principal; 2018-10-19)
DX: J96.21 Acute and chronic respiratory failure with hypoxia (principal); J44.1 Chronic obstructive pulmonary disease with (acute) exacerbation; J45.901 Unspecified asthma with (acute) exacerbation; F31.9 Bipolar disorder, unspecified; D86.9 Sarcoidosis, unspecified; R91.1 Solitary pulmonary nodule; Z82.49 Family history of ischemic heart disease and other diseases of the circulatory system; Z79.899 Other long term (current) drug therapy
CPT/HCPCS: 36415; 71045; 71260; 80048; 82164; 82550; 82553; 84484; 85007; 85025; 85379; 93005; 93010; 94640; 94760; G0378; J1650; J2930; Q9967

== ENCOUNTER 2019-04-14 01:15 | Emergency (ER) | payer OTHER ==
[2019-04-14 01:47] LABS: Hematocrit 35.2 % (35.5-45.6); Hemoglobin 11.7 gm/dl (11.8-15.2); Mean Corpuscular HGB Conc 33 % (32-34); Mean Corpuscular Volume 89 fl (84-94); Platelet Count 207 K/mm3 (140-440); Red Blood Count 3.98 M/mm3 (3.65-5.03); Red Cell Distribution Width 16.8 % (13.2-15.2)
[2019-04-14] MEDS ORDERED: BOOSTRIX IM ONE (01:54)
--- NOTE | 2019-04-14 02:06 | Emergency Department Report ---
HPI - General Chief Complaint: Dizziness Time Seen by Provider: 04/14/19 01:32 - HPI HPI: 63-year-old male presents to the emergency department with complaint of having a fall at home, hitting his head, causing a small posterior scalp laceration. The patient took one trazodone and 1.5 Seroquel at about 9 PM and then went to bed. He woke up a little prior to presentation, stood up, took a few steps, became dizzy, and fell backwards hitting his head. He called out for help and his daughter came and found him and brought him into the emergency department. He is currently sleepy but arousable and oriented. He has a past medical history of COPD, sarcoidosis and bipolar disorder. He complains of pain to his left great toe and left knee. He is unsure of his last tetanus vaccination. ED Past Medical Hx - Past Medical History Hx Psychiatric Treatment: Yes (Bipolar) Hx Asthma: Yes Hx COPD: Yes Additional medical history: Pulmonary sacrodosis. emphysema - Surgical History Additional Surgical History: Left knee repair, tonsilectomy, Sialolithotomy - Social History Smoking Status: Never Smoker Substance Use Type: None - Medications Home Medications: Home Medications Medication Instructions Recorded Confirmed Last Taken Type Albuterol Sulfate [Proair 180 mcg IH Q4H 08/07/18 10/18/18 10/16/18 09:00 History Respiclick] Cholecalciferol Vit D3 [Vitamin D3 2,000 unit PO DAILY 08/07/18 10/18/18 Unknown History 1,000 UNIT TAB] Divalproex ER [Depakote ER] 1,000 mg PO DAILY 08/07/18 10/18/18 10/16/18 09:00 History Ipratropium Bentley [Atrovent Hfa] 2 puff IH Q4HR 08/07/18 10/18/18 10/16/18 09:00 History QUEtiapine [SEROquel] 600 mg PO QHS 08/07/18 10/18/18 10/16/18 21:00 History Tiotropium [Spiriva] 2 puff IH DAILY 08/07/18 10/18/18 10/16/18 09:00 History Trazodone HCl 100 mg PO QHS PRN 08/07/18 10/18/18 10/16/18 21:00 History levoFLOXacin [Levaquin TAB] 750 mg PO DAILY #4 tablet 08/11/18 10/18/18 Unknown Rx ALBUTEROL NEB's [Proventil 0.083% 2.5 mg IH Q6HRT PRN #30 nebu 10/21/18 Unknown Rx NEBS] Budesoni/Formotero 160-4.5(Nf) 2 puff IH BID #1 unit 10/21/18 Unknown Rx [Symbicort 160-4.5 (Nf)] Montelukast [Singulair] 10 mg PO DAILY #30 tablet 10/21/18 Unknown Rx Prednisone [predniSONE 10 mg 10 mg PO .TAPER #1 tab.ds.pk 10/21/18 Unknown Rx (6-Day Pack, 21 Tabs)] ED Review of Systems ROS: Stated complaint: FALL/LOC Other details as noted in HPI Comment: All other systems reviewed and negative Constitutional: denies: chills, fever Eyes: denies: eye pain, vision change ENT: denies: ear pain, throat pain Respiratory: denies: cough, shortness of breath Cardiovascular: denies: chest pain, palpitations Gastrointestinal: denies: abdominal pain, vomiting Genitourinary: denies: dysuria, discharge Musculoskeletal: arthralgia. denies: back pain Skin: other (posterior scalp laceration). denies: rash Neurological: headache, other (dizziness) Physical Exam - Physical Exam Vital Signs: Vital Signs 04/14/19 04/14/19 04/14/19 01:16 01:27 01:50 Temperature 97.7 F Pulse Rate 95 H 90 Respiratory 14 Rate Blood Pressure 117/71 [Left] O2 Sat by Pulse 98 Oximetry Physical Exam: GENERAL: The patient is well-developed well-nourished. HENT: Normocephalic. Patient has moist mucous membranes. EYES: Extraocular motions are intact. Pupils equal reactive to light bilaterally. No nystagmus. NECK: Supple. Trachea is midline. CHEST/LUNGS: Clear to auscultation. There is no respiratory distress noted. HEART/CARDIOVASCULAR: Regular. There is no tachycardia. There is no murmur. ABDOMEN: Abdomen is soft, nontender. Patient has normal bowel sounds. There is no abdominal distention. SKIN: There is a 1 cm posterior scalp laceration. NEURO: The patient is sleepy but is easily arousable and once awake he is oriented. The patient is cooperative. The patient has no focal neurologic deficits. The patient has normal speech. Cranial nerves II through XII grossly intact. No pronator drift. MUSCULOSKELETAL: There is no tenderness or deformity. There is no limitation range of motion. There is no evidence of acute injury. ED Course Vital Signs 04/14/19 04/14/19 04/14/19 01:16 01:27 01:50 Temperature 97.7 F Pulse Rate 95 H 90 Respiratory 14 Rate Blood Pressure 117/71 [Left] O2 Sat by Pulse 98 Oximetry ED Medical Decision Making - Lab Data Result diagrams: 04/14/19 Unknown 04/14/19 Unknown - EKG Data -: EKG Interpreted by Nv EKG shows normal: sinus rhythm, axis, intervals, QRS complexes, ST-T waves Rate: normal - EKG Data When compared to previous EKG there are: previous EKG unavailable Interpretation: normal EKG - Radiology Data Radiology results: report reviewed LEFT FOOT, 3 VIEWS, 04/14/2019 INDICATION / CLINICAL INFORMATION: left great toe pain. Patient fell COMPARISON: None available. FINDINGS: Significant degenerative changes present in the great toe MTP joint. There is a nondisplaced intra-articular fracture through the medial proximal aspect of the distal phalanx of the great toe. No additional fractures. No dislocation. IMPRESSION: 1. Small intra-articular fracture involving the base of the distal phalanx of the great toe. 2. Significant degenerative change involving the first MTP joint. CT head/brain wo con INDICATION / CLINICAL INFORMATION: fall, head trauma, scalp laceration. TECHNIQUE: Axial CT imaging of the brain was obtained without IV contrast. Coronal and sagittal reformatted imaging obtained and reviewed. All CT scans at this location are performed using CT dose reduction for ALARA by means of automated exposure control. COMPARISON: None available. FINDINGS: No intracranial hemorrhage, mass, or midline shift is present. No extra-axial fluid collection or suggestion of acute territorial infarct. Ventricular system and basilar cisterns are unremarkable. Mild to moderate parenchymal volume loss is noted. Visualized paranasal sinuses and mastoid air cells are well aerated and clear. No calvarial fracture noted. No soft tissue abnormality. IMPRESSION: No acute intracranial abnormality. CT cervical spine wo con INDICATION / CLINICAL INFORMATION: fall. TECHNIQUE: Axial CT imaging of the cervical spine was obtained without IV contrast. Coronal and sagittal reformatted imaging obtained and reviewed. All CT scans at this location are pe rformed using CT dose reduction for ALARA by means of automated exposure control. COMPARISON: None available. FINDINGS: No evidence of cervical spine fracture or traumatic subluxation. There is mild degenerative disc disease at C4-C5 with mild spondylitic change noted. Paravertebral soft tissues are unremarkable. V isualized lung apices are clear. IMPRESSION: 1. No evidence for cervical spine fracture or traumatic subluxation. 2. Mild degenerative disc disease at C4-C5. - Medical Decision Making This patient presents to the emergency department after having a fall in the middle of the night and hitting his head. It is possible that he was sedated from his psychiatric medications including Seroquel and trazodone. Since being in the emergency department, the patient is awake and oriented. He has a small 1 cm laceration to the posterior scalp. A CT scan of the head without contrast was done that does not show any bleed, shift, mass, ischemia, or any other acute processes. CT of cervical spine also did not show any fracture, subluxation or any acute process. The small laceration was repaired with a Steri-Strip and Dermabond. Patient's labs were mostly unremarkable. There was mild hypokalemia that was replaced with potassium chloride. The patient also had a complaint of left great toe pain and left knee pain. X-rays were done of these areas that shows proximal left great toe fracture. X-ray of the knee did not show any fracture, dislocation or any acute process. The patient was reevaluated multiple times over multiple hours and has remained alert and oriented. His vital signs are stable throughout his ED course. Prior to discharge, the patient was seen in the [facility] emergency department and appeared stable. He was placed in a postop surgical sandal and given a referral for a tong setter. He will return to the ER if any worsening of his symptoms or any acute distress. - Differential Diagnosis TIA, subarachnoid, fracture, concussion, dysrhythmia Critical Care Time: No Critical care attestation.: If time is entered above; I have spent that time in minutes in the direct care of this critically ill patient, excluding procedure time. ED Disposition Clinical Impression: Fall Qualifiers: Encounter type: initial encounter Qualified Code(s): W19.XXXA - Unspecified fall, initial encounter Scalp laceration Qualifiers: Encounter type: initial encounter Qualified Code(s): S01.01XA - Laceration without foreign body of scalp, initial encounter Fracture of left great toe Qualifiers: Encounter type: initial encounter Fracture type: closed Phalanx: proximal Fracture alignment: nondisplaced Qualified Code(s): S92.415A - Nondisplaced fracture of proximal phalanx of left great toe, initial encounter for closed fracture Disposition: TO HOME OR SELFCARE Is pt being admited?: No Condition: Stable Instructions: Laceration (ED), Toe Fracture (ED), Fall Prevention (ED) Additional Instructions: Please follow-up with your primary care provider in the next few days. I have given you a referral for a local tong setter, Dr. Blakely, to follow up regarding your toe fracture. Return to the emergency Department with any worsening of your symptoms or any acute distress. Referrals: KYLIE BLAKELY DPM [Staff Physician] - 2-3 Days Primary Care Provider, Your [Other] - 2-3 Days Time of Disposition: 06:26
[2019-04-14 02:11] LABS: Alanine Aminotransferase 6 units/L (7-56); Albumin 3.2 g/dL (3.9-5); BUN/Creatinine Ratio 6; Blood Urea Nitrogen 4 mg/dL (9-20); Calcium 8.7 mg/dL (8.4-10.2); Hemolysis Index 25
[2019-04-14] MEDS ORDERED: K-DUR PO ONE (02:24)
--- NOTE | 2019-04-14 03:15 | XRay Report ---
LEFT KNEE, 3 VIEWS, 04/14/2019 INDICATION / CLINICAL INFORMATION: left knee pain. Patient fell COMPARISON: None available. FINDINGS: No fracture, dislocation, or joint effusion is noted. Mild degenerative changes are present, primaril y in the medial joint compartment. IMPRESSION: No fracture or dislocation. Signer Name: Alina James MD Signed: 04/14/2019 2:10 AM Workstation Name: [id number]
--- NOTE | 2019-04-14 03:18 | XRay Report ---
LEFT FOOT, 3 VIEWS, 04/14/2019 INDICATION / CLINICAL INFORMATION: left great toe pain. Patient fell COMPARISON: None available. FINDINGS: Significant degenerative changes present in the great toe MTP joint. There is a nondisplaced intra-articular fracture through the medial proximal aspect of the distal pha lanx of the great toe. No additional fractures. No dislocation. IMPRESSION: 1. Small intra-articular fracture involving the base of the distal phalanx of the great toe. 2. Significant degenerative change involving the first MTP joint. Signer Name: Alina James MD Signed: 04/14/2019 2:13 AM Workstation Name: [id number]
[2019-04-14 04:53] LABS: Amphetamine Screen,Urine PRESUMPTIVE NEGATIVE; Benzodiazepines Screen,Urine PRESUMPTIVE NEGATIVE; Cannabinoid Screen,Urine PRESUMPTIVE NEGATIVE; Cocaine Screen,Urine PRESUMPTIVE NEGATIVE; Methadone Screen,Urine PRESUMPTIVE NEGATIVE; Opiate Screen,Urine PRESUMPTIVE NEGATIVE
[2019-04-14 05:53] VITALS: BP 105/63
--- NOTE | 2019-04-14 05:57 | Cat Scan Report ---
CT head/brain wo con INDICATION / CLINICAL INFORMATION: fall, head trauma, scalp laceration. TECHNIQUE: Axial CT imaging of the brain was obtained without IV contrast. Coronal and sagittal reformatted imag ing obtained and reviewed. All CT scans at this location are performed using CT dose reduction for AL EVELYNE by means of automated exposure control. COMPARISON: None available. FINDINGS: No intracranial hemorrhage, mass, or midline shift is present. No extra-axial fluid collection or sug gestion of acute territorial infarct. Ventricular system and basilar cisterns are unremarkable. Mild to moderate parenchymal volume loss is noted. Visualized paranasal sinuses and mastoid air cells are well aerated and clear. No calvarial fracture noted. No soft tissue abnormality. IMPRESSION: No acute intracranial abnormality. Signer Name: Alina James MD Signed: 04/14/2019 4:53 AM Workstation Name: [id number]
--- NOTE | 2019-04-14 06:00 | Cat Scan Report ---
CT cervical spine wo con INDICATION / CLINICAL INFORMATION: fall. TECHNIQUE: Axial CT imaging of the cervical spine was obtained without IV contrast. Coronal and sagittal reforma tted imaging obtained and reviewed. All CT scans at this location are performed using CT dose reducti on for ALARA by means of automated exposure control. COMPARISON: None available. FINDINGS: No evidence of cervical spine fracture or traumatic subluxation. There is mild degenerative disc dise ase at C4-C5 with mild spondylitic change noted. Paravertebral soft tissues are unremarkable. Visuali zed lung apices are clear. IMPRESSION: 1. No evidence for cervical spine fracture or traumatic subluxation. 2. Mild degenerative disc disease at C4-C5. Signer Name: Alina James MD Signed: 04/14/2019 4:55 AM Workstation Name: [id number]
== END 2019-04-14 06:41 | disposition home or self-care (01) ==
LOC: ED 01:15
DX: S92.422A Displaced fracture of distal phalanx of left great toe, initial encounter for closed fracture (principal); S01.01XA Laceration without foreign body of scalp, initial encounter; F31.9 Bipolar disorder, unspecified; J44.9 Chronic obstructive pulmonary disease, unspecified; Z98.890 Other specified postprocedural states; Z79.899 Other long term (current) drug therapy; W18.30XA Fall on same level, unspecified, initial encounter; Y93.89 Activity, other specified; Y92.89 Other specified places as the place of occurrence of the external cause; Y99.8 Other external cause status
CPT/HCPCS: 12001; 36415; 70450; 72125; 73562; 73660; 80053; 80307; 85027; 90471; 90715; 93005; 93010; 99285; G0480; 80320

== ENCOUNTER 2022-02-10 03:50 | Emergency (ER) | payer OTHER ==
[2022-02-10] MEDS ORDERED: IPRATROPIUM 0.02% NEBU 2.5 ML IH ONE (07:06)
[2022-02-10] MEDS ORDERED: MORPHINE 4 MG/1 ML INJ IV ONE (07:06)
[2022-02-10] MEDS ORDERED: methylPREDNISolone Sod Succinate 125 MG/2 ML INJ IV ONE (07:06)
[2022-02-10] MEDS ORDERED: ALBUTEROL 2.5 MG/3 ML NEBU IH ONE (07:06)
[2022-02-10] MEDS ORDERED: ONDANSETRON 4 MG/2 ML INJ IV ONE (07:06)
[2022-02-10] MEDS ORDERED: KETOROLAC 30 MG/1 ML INJ IV ONE (07:07)
--- NOTE | 2022-02-10 07:08 | Emergency Department Report ---
ED General Adult HPI - General Chief complaint: Dyspnea/Respdistress Stated complaint: BILL Time Seen by Provider: 02/10/22 06:18 Source: EMS ( EMS documentation not available at time of chart dictation ), RN notes reviewed, old records reviewed Mode of arrival: Stretcher Limitations: No Limitations - History of Present Illness Initial comments: Primary CARE doctor: [facility] This is a 65-year-old gentleman, with a past medical history of sarcoid, bipolar, and asthma, who presents to the ER today with a complaint of left later al chest wall tenderness. He also complains of shortness of breath. The patient reports that he was not knocked to his side by dogs earlier on this week, and landed on his left lateral thorax. Since then, he has been having persistent left lateral thorax pain, and difficulty breathing. He has a mild cough. However, he denies headache, neck pain, anterior chest pain, vomiting, diaphoresis, DVT/PE risk factors. His left lateral thorax pain increases with palpation and range of motion, and decreases with rest and certain position. He does feel like he is coughing and having more shortness of breath. Mild mucus production -: Gradual Location: chest (Left lateral chest wall) Radiation: non-radiation Quality: aching Consistency: constant Improves with: rest Worsens with: movement (Palpation) - Related Data Home Medications Medication Instructions Recorded Confirmed Last Taken Cholecalciferol Vit D3 [Vitamin D3 2,000 unit PO DAILY 08/07/18 10/18/18 Unknown 1,000 UNIT TAB] Divalproex ER [Depakote ER] 1,000 mg PO DAILY 08/07/18 10/18/18 10/16/18 09:00 Ipratropium [place] [Atrovent Hfa] 2 puff IH Q4HR 08/07/18 10/18/18 10/16/18 09:00 QUEtiapine [SEROquel] 600 mg PO QHS 08/07/18 10/18/18 10/16/18 21:00 Trazodone HCl 100 mg PO QHS PRN 08/07/18 10/18/18 10/16/18 21:00 Previous Rx's Medication Instructions Recorded Last Taken Type levoFLOXacin [Levaquin TAB] 750 mg PO DAILY #4 tablet 08/11/18 Unknown Rx ALBUTEROL NEB's [Proventil 0.083% 2.5 mg IH Q6HRT PRN #30 nebu 10/21/18 Unknown Rx NEBS] Budesoni/Formotero 160-4.5(Nf) 2 puff IH BID #1 unit 10/21/18 Unknown Rx [Symbicort 160-4.5 (Nf)] Albuterol Sulfate [Albuterol 0.63% 0.63 mg IH Q4HR PRN #2 ml 02/10/22 Unknown Rx NEBS] Albuterol Sulfate [Proair 90 mcg IH Q4HR PRN #2 aer.pow.ba 02/10/22 Unknown Rx Respiclick] Ipratropium (Nf) [Atrovent] 2 puff IH Q6HR PRN #1 inha 02/10/22 Unknown Rx Ipratropium [Atrovent NEB] 0.5 mg IH Q4HR #2 ml 02/10/22 Unknown Rx Montelukast [Singulair] 10 mg PO DAILY #30 tablet 02/10/22 Unknown Rx Morphine Sulfate [Morphine Sulfate 7.5 mg PO Q6HR PRN #10 tablet 02/10/22 Unknown Rx IR] Prednisone [predniSONE 10 mg 10 mg PO .TAPER #1 tab.ds.pk 02/10/22 Unknown Rx (6-Day Pack, 21 Tabs)] Tiotropium [Spiriva] 2 puff IH DAILY #1 inh 02/10/22 Unknown Rx Allergies Allergy/AdvReac Type Severity Reaction Status Date / Time No Known Allergies Allergy Verified 12/22/17 16:53 ED Review of Systems ROS: Stated complaint: BILL Other details as noted in HPI Comment: All other systems reviewed and negative Respiratory: cough, shortness of breath, SOB with exertion, SOB at rest, wheezing Cardiovascular: other (Left lateral chest wall pain) Musculoskeletal: arthralgia ED Past Medical Hx - Past Medical History Previous Medical History?: Yes Hx Psychiatric Treatment: Yes (Bipolar) Hx Asthma: Yes Hx COPD: Yes Additional medical history: Pulmonary sacrodosis. emphysema - Surgical History Past Surgical History?: Yes Additional Surgical History: Left knee repair, tonsilectomy, Sialolithotomy - Social History Smoking Status: Never Smoker Substance Use Type: None - Medications Home Medications: Home Medications Medication Instructions Recorded Confirmed Last Taken Type Cholecalciferol Vit D3 [Vitamin D3 2,000 unit PO DAILY 08/07/18 10/18/18 Unknown History 1,000 UNIT TAB] Divalproex ER [Depakote ER] 1,000 mg PO DAILY 08/07/18 10/18/18 10/16/18 09:00 History Ipratropium [place] [Atrovent Hfa] 2 puff IH Q4HR 08/07/18 10/18/18 10/16/18 09:00 History QUEtiapine [SEROquel] 600 mg PO QHS 08/07/18 10/18/18 10/16/18 21:00 History Trazodone HCl 100 mg PO QHS PRN 08/07/18 10/18/18 10/16/18 21:00 History levoFLOXacin [Levaquin TAB] 750 mg PO DAILY #4 tablet 08/11/18 10/18/18 Unknown Rx ALBUTEROL NEB's [Proventil 0.083% 2.5 mg IH Q6HRT PRN #30 nebu 10/21/18 Unknown Rx NEBS] Budesoni/Formotero 160-4.5(Nf) 2 puff IH BID #1 unit 10/21/18 Unknown Rx [Symbicort 160-4.5 (Nf)] Albuterol Sulfate [Albuterol 0.63% 0.63 mg IH Q4HR PRN #2 ml 02/10/22 Unknown Rx NEBS] Albuterol Sulfate [Proair 90 mcg IH Q4HR PRN #2 aer.pow.ba 02/10/22 Unknown Rx Respiclick] Ipratropium (Nf) [Atrovent] 2 puff IH Q6HR PRN #1 inha 02/10/22 Unknown Rx Ipratropium [Atrovent NEB] 0.5 mg IH Q4HR #2 ml 02/10/22 Unknown Rx Montelukast [Singulair] 10 mg PO DAILY #30 tablet 02/10/22 Unknown Rx Morphine Sulfate [Morphine Sulfate 7.5 mg PO Q6HR PRN #10 tablet 02/10/22 Unknown Rx IR] Prednisone [predniSONE 10 mg 10 mg PO .TAPER #1 tab.ds.pk 02/10/22 Unknown Rx (6-Day Pack, 21 Tabs)] Tiotropium [Spiriva] 2 puff IH DAILY #1 inh 02/10/22 Unknown Rx ED Physical Exam - General Limitations: No Limitations General appearance: alert, in no apparent distress - Head Head exam: Present: atraumatic, normocephalic - Eye Eye exam: Present: normal appearance, PERRL. Absent: nystagmus - ENT ENT exam: Present: normal exam, normal orophraynx, mucous membranes moist, normal external ear exam - Neck Neck exam: Present: normal inspection, full ROM. Absent: tenderness, meningismus - Respiratory Respiratory exam: Present: wheezes, rhonchi, chest wall tenderness. Absent: respiratory distress, rales, stridor, decreased breath sounds - Cardiovascular Cardiovascular Exam: Present: regular rate, normal rhythm, normal heart sounds. Absent: bradycardia, tachycardia, irregular rhythm, systolic murmur, diastolic murmur, rubs, gallop - GI/Abdominal GI/Abdominal exam: Present: soft. Absent: distended, tenderness, guarding, rebound, rigid, pulsatile mass - Rectal Rectal exam: Present: deferred - Extremities Exam Extremities exam: Present: normal inspection, full ROM, other (2+ pulses noted in the bilateral upper and lower extremities. There is no palpable cord. negative Homans sign. Muscular compartments are soft. The pelvis is stable.). Absent: pedal edema, calf tenderness - Back Exam Back exam: Present: normal inspection. Absent: tenderness, CVA tenderness (R), CVA tenderness (L), paraspinal tenderness, vertebral tenderness - Neurological Exam Neurological exam: Present: alert, oriented X3, normal gait, other (No facial droop. Tongue midline. Extraocular movements intact bilaterally. Facial sensation intact to light touch in V1, V2, V3 distribution bilaterally. 5 and a 5 strength in 4 extremities. Sensation intact to light touch in 4 extremities.). Absent: motor sensory deficit - Psychiatric Psychiatric exam: Present: anxious - Skin Skin exam: Present: warm, dry, intact, normal color. Absent: rash ED Course Vital Signs 02/10/22 02/10/22 02/10/22 06:05 08:12 08:17 Temperature 98 F Pulse Rate 69 Pulse Rate [ 79 Bilateral] Pulse Rate [ 80 Throughout] Respiratory 18 Rate Respiratory 20 Rate [Bilateral ] Respiratory 20 Rate [ Throughout] Blood Pressure 106/58 O2 Sat by Pulse 99 Oximetry O2 Sat by Pulse 99 Oximetry [ Digit-Finger] - Reevaluation(s) Reevaluation #1: 02/10/22 08:04 Differential diagnosis, include but not limited to: Sarcoid, asthma, reactive airways disease, pulmonary contusion, rib contusion Assessment and plan: 66-year-old gentleman who fell to his left side a few days ago, landed on his left rib cage, presenting with left lateral rib cage tenderness, cough, wheezing and shortness of breath. No DVT or PE risk factors, low risk by Wells criteria for pulmonary embolism. Has reproducible left lateral rib cage tenderness. Chest x-ray clear. EKG unchanged from prior. Physical exam otherwise noncontributory, there is no ecchymosis noted. Chest x- ray negative for acute findings. Treat with albuterol, Atrovent, steroids, pain medication, respiratory therapy to evaluate for incentive spirometry. Reassess. 02/10/22 10:11 The patient is reassessed. He is resting comfortably. He is in no respiratory distress. Wheezing and rhonchi resolved. He states that he feels markedly improved. He is able to use the incentive spirometer. He endorses complete resolution of symptoms. Counseled patient on diagnosis and therapy. He endorses understanding. Return precautions reviewed. - Pulse Oximetry Interpretation Digit-Finger Initial Pulse Oximetry Readin O2 Sat by Pulse Oximetry: 99 Actions Taken: none ED Medical Decision Making - Lab Data Vital Signs 02/10/22 06:05 Temperature 98 F Pulse Rate 69 Respiratory 18 Rate Blood Pressure 106/58 O2 Sat by Pulse 99 Oximetry - EKG Data -: EKG Interpreted by Ut EKG shows normal: sinus rhythm Rate: normal - EKG Data When compared to previous EKG there are: no significant change Interpretation: unchanged when compared t 02/10/22 08:01 The EKG today is interpreted at 06: 50. Sinus rhythm, rate 70 bpm. Normal axis, normal P wave axis, , QTC 4 7 6 ms, nonspecific T wave abnormalities. This is an abnormal EKG. This is not a STEMI. Appears to be unchanged from prior EKG from 2019. - Radiology Data Radiology results: pending, report reviewed, image reviewed CHEST 1 VIEW INDICATION / CLINICAL INFORMATION: dyspnea sarcoid. COMPARISON: Chest x-ray 10/17/2018 FINDINGS: Heart size appears within normal limits. Medias tinal contour demonstrates no significant abnormality. Pulmonary vasculature appears within normal limits. Lungs are clear. Bones and soft tissues demonstrate no significant abnormalities. IMPRESSION: 1. No active cardiopulmonary disease. Signer Name: Jeevan Kim II, MD Signed: 02/10/2022 6:32 AM Workstation Name: [id number] Critical Care Time: Yes Critical care time in (mins) excluding proc time.: 35 Critical care attestation.: If time is entered above; I have spent that time in minutes in the direct care o f this critically ill patient, excluding procedure time. ED Disposition Clinical Impression: COPD exacerbation Contusion of rib on left side Qualifiers: Encounter type: initial encounter Qualified Code(s): S20.212A - Contusion of left front wall of thorax, initial encounter Disposition: HOME / SELF CARE / HOMELESS Is pt being admited?: No Does the pt Need Aspirin: No Condition: Good Instructions: Chronic Obstructive Pulmonary Disease, Rib Contusion, Chronic Obstructive Pulmonary Disease (ED) Additional Instructions: Patient most likely has a bruised rib on his left side, which is causing rib cage pain, splinting, coughing and shortness of breath. Please take Tylenol, 650 mg by mouth, every 4-6 hours as needed for physical pain, alternating with Motrin/ibuprofen, 400 mg by mouth, every 6 hours with food, as needed for pain. Use the morphine sulfate as needed for breakthrough pain. Use the incentive spirometer as discussed and instructed. Take the albuterol, Atrovent as directed, and steroids as directed. Patient is advised to follow-up with a primary care doctor or assembling machine operator within the next week for repeat checkup and evaluation. Rest, avoid heavy lifting and strenuous physical activities. May also alternate ice packs and heat packs as needed for physical pain improvement. Please return to the emergency room right away with new pain, worsened pain, migration of pain, projectile vomiting, change in mental status, confusion, inability tolerate liquid feeds, new, worsened or different symptoms not present on the initial emergency room evaluation Prescriptions: Albuterol Sulfate [Albuterol 0.63% NEBS] 0.63 mg IH Q4HR PRN #2 ml PRN Reason: Wheezing Ipratropium (Nf) [Atrovent] 2 puff IH Q6HR PRN #1 inha PRN Reason: Wheezing Ipratropium [Atrovent NEB] 0.5 mg IH Q4HR #2 ml Morphine Sulfate [Morphine Sulfate IR] 7.5 mg PO Q6HR PRN #10 tablet PRN Reason: Pain , Severe (7-10) Prednisone [predniSONE 10 mg (6-Day Pack, 21 Tabs)] 10 mg PO .TAPER #1 tab.ds.pk Albuterol Sulfate [Proair Respiclick] 90 mcg IH Q4HR PRN #2 aer.pow.ba PRN Reason: Wheezing Albuterol Sulfate [Proair Respiclick] 180 mcg IH Q4H #1 inh Montelukast [Singulair] 10 mg PO DAILY #30 tablet Tiotropium [Spiriva] 2 puff IH DAILY #1 inh Referrals: CATALINA CALLAHAN MD [Staff Physician] - 3-5 Days VAZQUEZ JARQUIN MD [Staff Physician] - 3-5 Days Forms: Work/School Release Form(ED)
--- NOTE | 2022-02-10 07:36 | XRay Report ---
CHEST 1 VIEW INDICATION / CLINICAL INFORMATION: dyspnea sarcoid. COMPARISON: Chest x-ray 10/17/2018 FINDINGS: Heart size appears within normal limits. Mediastinal contour demonstrates no significant abnormality. Pulmonary vasculature appears within normal limits. Lungs are clear. Bones and soft tissues demonstr ate no significant abnormalities. IMPRESSION: 1. No active cardiopulmonary disease. Signer Name: Jeevan Kim II, MD Signed: 02/10/2022 7:32 AM Workstation Name: [id number]
[2022-02-10 11:34] VITALS: BP 115/73
--- NOTE | 2022-02-11 13:40 | Electrocardiograph Report ---
[facility] Test Date: 2022-02-10 Test Time: 06:53:04 Pat Name: HARDEEP ARZATE Department: Room: Gender: M Technology Sales Specialist: : [id number] Requested By: MARCI DE LA VEGA Order Number: [id number] Reading MD: Beltran Gomez Measurements Intervals [place] Rate: 70 P: 75 MN: 138 QRS: 88 QRSD: 94 T: 78 QT: 441 QTc: 476 Interpretive Statements Sinus rhythm Probable left atrial enlargement Nonspecific T wave abnormality No previous ECG available for comparison Electronically Signed On 02-11-2022 13:40:12 EDT by Beltran Gomez
== END 2022-02-10 11:37 | disposition home or self-care (01) ==
LOC: ED 03:50
DX: S20.212A Contusion of left front wall of thorax, initial encounter (principal); J44.1 Chronic obstructive pulmonary disease with (acute) exacerbation; F31.9 Bipolar disorder, unspecified; Z90.89 Acquired absence of other organs; Z79.899 Other long term (current) drug therapy; X58.XXXA Exposure to other specified factors, initial encounter; Y93.89 Activity, other specified; Y92.89 Other specified places as the place of occurrence of the external cause; Y99.8 Other external cause status
CPT/HCPCS: 71045; 93005; 94644; 96374; 96375; 99284; J1885; J2270; J2405; J2930